=== PATIENT | male | born 1960 | race Caucasian/White ===

== ENCOUNTER → 2016-08-07 | Outpatient (CLI) | payer MEDICARE, OTHER ==
[2016-08-07 14:51] VITALS: BP 165/72; PULSE 85; RESP 16; TEMP 98.8; BMI 31.3
--- NOTE | 2016-08-07 15:58 | P.HPBAR ---
Bariatric H&P - History & Physicial H&P Date: 08/07/16 History & Physicial: Visit/CC: Sleeve follow-up Patient initial contact: Initial weight: 99.025 kg Initial weight in pounds: 218.31 Height: 5 ft 10 in Initial BMI: 31.3 Last weight: Current weight: 99.025 kg Current weight in pounds: 218.00 Current BMI: 31.3 [place] body weight (based on NIH guidelines): 75.296 kg Excess body weight loss: 0.5% The patient is a 55 year-old M who presents for Bariatric Assessment. Patient rents today for sleeve follow-up. He's had some issues with intermittent frequent bowel movements. Patient states he may have 3-6 bowel movements per day. Patient has had minimal GERD symptoms. 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 lt knee. guerda shoulders scoped. LAP-BAND. Gastric sleeve conversion. bowel adhesions removed. Bowel Adhesions removed Past Anesthesia/Blood Transfusion Reactions: No Reported Reaction Past Psychological History: Bipolar, Depression, Schizoaffective Disorder Additional Psychological History / Comment(s): antisocial disorder Smoking Status: Never smoker Past Alcohol Use History: Occasional, Rare Additional Past Alcohol Use History / Comment(s): smoked for 27 years, quit in 2001 Past Drug Use History: None Reported - Past Family History Mother Family Medical History: Cancer Additional Family Medical History / Comment(s): at age 66 from Breast Cancer Father Additional Family Medical History / Comment(s): at age 76 from emphysema Surgical - Exam Vital Signs Temp Pulse Resp BP 98.8 F 85 16 165/72 08/07/16 14:49 08/07/16 14:49 08/07/16 14:49 08/07/16 14:49 - General well developed, no distress - Eyes PERRL - ENT normal pinna - Neck no masses - Respiratory normal expansion - Cardiovascular Rhythm: regular - Abdomen Abdomen: soft, non tender Bariatric Assessment & Plan Plan: GERD. Patient's symptoms will be observed. He'll continue omeprazole.. Frequent bowel movements. Patient also start Metamucil 1 tablespoon by mouth twice a day. He'll follow-up one month recheck Bariatric Checklist Checklist: Plan: Checklist: EGD: 1. Hiatal hernia: 2. H. Pylori: HgbA1c: Vitamin D: Smoking: Never smoker Primary care physician referral: Psychiatry clearance: Cardiology clearance: Sleep study: Diet journal: VTE risk score: VTE risk level: Rehab needs at discharge:
== END | disposition home or self-care (01) ==
LOC: BARWHC3 14:12
PROVIDERS: ATTEND Surgery
DX: Z48.815 Encounter for surgical aftercare following surgery on the digestive system (principal); Z98.84 Bariatric surgery status; Z68.32 Body mass index [BMI] 32.0-32.9, adult; K21.9 Gastro-esophageal reflux disease without esophagitis; Z79.899 Other long term (current) drug therapy
CPT/HCPCS: 99201

== ENCOUNTER → 2016-08-15 | Outpatient (CLI) | payer MEDICARE, OTHER ==
--- NOTE | 2016-08-15 22:28 | MR ---
EXAMINATION TYPE: MR cervical spine wo con DATE OF EXAM: 08/15/2016 6:57 PM COMPARISON: 10/28/2009 HISTORY: Cervicalgia TECHNIQUE: Multiplanar, multisequence images of the cervical spine were acquired. C2-C3: No evidence for degenerative disc disease. No disc bulge/herniation or protrusion. No Canal stenosis. Foramina are patent bilaterally. Mild facet arthropathy. C3-C4: Bilateral uncovertebral joint hypertrophy which appears fairly stable from the previous exam i s greater on the left with moderate to severe right-sided foraminal encroachment and severe left-side d foraminal encroachment. Posterior spondylosis and minimal disc bulging results in mild indentation of the thecal sac but no canal stenosis. No spinal cord contact. C4-C5: Generative disc disease with bilateral mild uncovertebral joint protection. There is a central and left paracentral disc protrusion with effacement of thecal sac and contact upon the anterior mar gin of the spinal cord. Moderate to severe bilateral foraminal encroachment with facet arthropathy. M oderate to severe canal stenosis. C5-C6: Degenerative disc disease with posterior spondylosis and uncovertebral joint hypertrophy. Mode rate bilateral foraminal encroachment. Disc bulging capped by spur results in mild canal stenosis. C6-C7: Central focal disc bulging or small protrusion with moderate effacement of thecal sac. Bilater al mild foraminal encroachment. There is mild canal stenosis. C7-T1: No evidence for degenerative disc disease. No disc bulge/herniation or protrusion. No Canal stenosis. Foramina are patent bilaterally. Cervical segments are intact. There is normal alignment. Cervical spinal cord is of normal signal. Craniovertebral junction relationships are within normal limits. IMPRESSION: 1. There Is progression of multilevel degenerative disc disease. Disc protrusion is seen at C4-5 with mild anterior compression upon the spinal cord and significant canal stenosis and significant bilat eral foraminal encroachment. 2. Disc bulging catheter by spur with uncovertebral joint hypertrophy at C5-C6 results in mild canal stenosis and bilateral foraminal encroachment. 3. Focal central disc bulging or small protrusion with moderate effacement of thecal sac and mild guerda ateral foraminal encroachment. Mild canal stenosis. 4. Severe left and moderate to severe right foraminal encroachment C3-C4 due to posterior spondylosis and hypertrophic change of the uncovertebral joints.
== END | disposition home or self-care (01) ==
LOC: RADMRIMAIN 18:26
PROVIDERS: ATTEND Nurse Practitioner Acute Care
DX: M48.02 Spinal stenosis, cervical region (principal); M99.71 Connective tissue and disc stenosis of intervertebral foramina of cervical region; M50.221 Other cervical disc displacement at C4-C5 level; M50.30 Other cervical disc degeneration, unspecified cervical region; M47.812 Spondylosis without myelopathy or radiculopathy, cervical region
CPT/HCPCS: 72141

== ENCOUNTER 2016-08-22 09:07 | Emergency (ER) | payer MEDICARE, OTHER ==
[2016-08-22 09:17] VITALS: RESP 18
--- NOTE | 2016-08-22 10:27 | ED ---
General Adult HPI - General Chief complaint: Neck Pain/Injury Stated complaint: Numbness neck /arm Time Seen by Provider: 08/22/16 10:00 Source: patient, RN notes reviewed Mode of arrival: ambulatory Limitations: no limitations - History of Present Illness Initial comments: His is a 55-year-old male who presents to the emergency department complaining of tingling in his left arm down to his fingers. Patient states he has had this for many months. Patient went to see his neurologist his urologist an MRI now the symptoms seem to be more constant as opposed to intermittent so he went to the neurologist's office in the office staff told to come the emergency department. Patient has no deficit of strength patient has no deficit of sensation. Patient states he's had this for many months but normally it's intermittent and now it lasted a lot longer than normal. Patient states movement of the neck does not seem to make it worse. Patient states she's had a recent injury or trauma. Patient denies any fever. Patient denies any other symptoms such as lightheadedness dizziness or near syncopal episode. Patient denies any headache. Patient denies any problems breathing or chest pain or abdominal pain. - Related Data Home Medications Medication Instructions Recorded Confirmed Atorvastatin [Lipitor] 40 mg PO HS 08/07/16 08/22/16 Gabapentin [Neurontin] 600 mg PO TID 08/07/16 08/22/16 HYDROcodone/APAP 7.5-325MG [[place] 1 tab PO TID PRN 08/07/16 08/22/16 7.5-325] Lisinopril [Zestril] 5 mg PO DAILY 08/07/16 08/22/16 Zolpidem [Ambien] 10 mg PO HS PRN 08/07/16 08/22/16 metFORMIN HCL [Glucophage Xr] 500 mg PO DAILY 08/07/16 08/22/16 Aspirin EC [Ecotrin Low Dose] 81 mg PO DAILY 08/22/16 08/22/16 Butalb/APAP/Caff 50-325-40Mg 1 tab PO Q4H PRN 08/22/16 08/22/16 [Fioricet 50-325-40] Calcium Polycarbophil [Fibercon] 625 mg PO DAILY 08/22/16 08/22/16 Meloxicam 15 mg PO DAILY 08/22/16 08/22/16 Previous Rx's Medication Instructions Recorded predniSONE 40 mg PO DAILY #8 tab 08/22/16 Allergies Allergy/AdvReac Type Severity Reaction Status Date / Time No Known Allergies Allergy Verified 08/22/16 09:42 Review of Systems ROS Statement: Those systems with pertinent positive or pertinent negative responses have been documented in the HPI. ROS Other: All systems not noted in ROS Statement are negative. 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 lt knee. guerda shoulders scoped. LAP-BAND. Gastric sleeve conversion. bowel adhesions removed. Bowel Adhesions removed Past Anesthesia/Blood Transfusion Reactions: No Reported Reaction Past Psychological History: Bipolar, Depression, Schizoaffective Disorder Additional Psychological History / Comment(s): antisocial disorder Smoking Status: Never smoker Past Alcohol Use History: Occasional, Rare Additional Past Alcohol Use History / Comment(s): smoked for 27 years, quit in 2001 Past Drug Use History: None Reported - Past Family History Mother Family Medical History: Cancer Additional Family Medical History / Comment(s): at age 66 from Breast Cancer Father Additional Family Medical History / Comment(s): at age 76 from emphysema General Exam - General Exam Comments Initial Comments: GENERAL: Patient is well-developed and well-nourished. Patient is nontoxic and well- hydrated and is in mild distress. ENT: Neck is soft and supple. No significant lymphadenopathy is noted. Oropharynx is clear. Moist mucous membranes. Neck has full range of motion without eliciting any pain. There is no radiculopathy noted with range of motion of the neck EYES: The sclera were anicteric and conjunctiva were pink and moist. Extraocular movements were intact and pupils were equal round and reactive to light. Eyelids were unremarkable. PULMONARY: Unlabored respirations. Good breath sounds bilaterally. No audible rales rhonchi or wheezing was noted. CARDIOVASCULAR: There is a regular rate and rhythm without any murmurs gallops or rubs. ABDOMEN: Soft and nontender with normal bowel sounds. SKIN: Skin is clear with no lesions or rashes and otherwise unremarkable. NEUROLOGIC: Patient is alert and oriented x3. Cranial nerves II through XII are grossly intact. Motor and sensory are also intact. Normal speech, volume and content. Symmetrical smile. There is no appreciable deficit in any area. MUSCULOSKELETAL: Normal extremities with adequate strength and full range of motion. LYMPHATICS: No significant lymphadenopathy is noted PSYCHIATRIC: Normal psychiatric evaluation. Limitations: no limitations Course Vital Signs 08/22/16 09:12 Temperature 97.4 F L Pulse Rate 69 Respiratory 18 Rate Blood Pressure 181/82 O2 Sat by Pulse 99 Oximetry Medical Decision Making - Medical Decision Making I reviewed the MRI. Disposition Clinical Impression: Cervical radiculopathy Disposition: HOME SELF-CARE Condition: Good Prescriptions: predniSONE 40 mg PO DAILY #8 tab Referrals: Luciano Shukla MD [Primary Care Provider] - 1-2 days Time of Disposition: 10:27
[2016-08-22 10:48] VITALS: BP 131/80; PULSE 63; TEMP 97.3
== END 2016-08-22 10:48 | disposition home or self-care (01) ==
LOC: EC 09:07
DX: M54.12 Radiculopathy, cervical region (principal); E11.9 Type 2 diabetes mellitus without complications; E78.5 Hyperlipidemia, unspecified; I25.10 Atherosclerotic heart disease of native coronary artery without angina pectoris; I10 Essential (primary) hypertension; Z98.84 Bariatric surgery status; Z79.899 Other long term (current) drug therapy; Z79.82 Long term (current) use of aspirin; Z90.5 Acquired absence of kidney; Z87.891 Personal history of nicotine dependence; Z79.84 Long term (current) use of oral hypoglycemic drugs; Z95.1 Presence of aortocoronary bypass graft
CPT/HCPCS: 99283

== ENCOUNTER → 2016-10-30 | Outpatient (CLI) | payer MEDICARE, OTHER ==
[2016-10-30 14:03] VITALS: BP 150/80; PULSE 56; RESP 14; TEMP 98; BMI 31.9
--- NOTE | 2016-10-30 15:54 | P.HPBAR ---
Bariatric H&P - History & Physicial H&P Date: 10/30/16 History & Physicial: Visit/CC: sleeve f/u Patient initial contact: Initial weight: 99.025 kg Initial weight in pounds: 218.31 Height: 5 ft 10 in Initial BMI: 31.3 Last weight: Current weight: 100.924 kg Current weight in pounds: 222.50 Current BMI: 31.9 [place] body weight (based on NIH guidelines): 75.296 kg Excess body weight loss: The patient is a 55 year-old M who presents for Bariatric Assessment. The patient has safer sleeve gastrectomy follow-up. He states his arthritis is improved. He underwent recent right knee joint replacement. He's had no GERD and dysphagia. 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 lt knee. guerda shoulders scoped. LAP-BAND. Gastric sleeve conversion. bowel adhesions removed. Bowel Adhesions removed Past Anesthesia/Blood Transfusion Reactions: No Reported Reaction Past Psychological History: Bipolar, Depression, Schizoaffective Disorder Additional Psychological History / Comment(s): antisocial disorder Smoking Status: Never smoker Past Alcohol Use History: Occasional, Rare Additional Past Alcohol Use History / Comment(s): smoked for 27 years, quit in 2001 Past Drug Use History: None Reported - Past Family History Mother Family Medical History: Cancer Additional Family Medical History / Comment(s): at age 66 from Breast Cancer Father Additional Family Medical History / Comment(s): at age 76 from emphysema Surgical - Exam Vital Signs Temp Pulse Resp BP 98 F 56 L 14 150/80 10/30/16 13:56 10/30/16 13:56 10/30/16 13:56 10/30/16 13:56 - General well developed, no distress - Eyes PERRL - ENT normal pinna - Neck no masses - Abdomen Abdomen: soft, non tender Bariatric Assessment & Plan Plan: Status post sleeve yesterday. Patient is doing quite well his weight loss. His weight is remain stable. His arthritis is improving. He'll follow-up in 2 months. Bariatric Checklist Checklist: Plan: Checklist: EGD: 1. Hiatal hernia: 2. H. Pylori: HgbA1c: Vitamin D: Smoking: Never smoker Primary care physician referral: Dr. Shukla Psychiatry clearance: Cardiology clearance: Sleep study: Diet journal: VTE risk score: VTE risk level: Rehab needs at discharge:
== END | disposition home or self-care (01) ==
LOC: BARWHC3 13:19
PROVIDERS: ATTEND Surgery
DX: Z48.815 Encounter for surgical aftercare following surgery on the digestive system (principal); M19.90 Unspecified osteoarthritis, unspecified site; Z98.84 Bariatric surgery status; Z68.31 Body mass index [BMI] 31.0-31.9, adult
CPT/HCPCS: 99211

== ENCOUNTER → 2017-01-01 | Outpatient (CLI) | payer MEDICARE, OTHER ==
[2017-01-01 13:14] VITALS: BP 140/72; PULSE 85; RESP 16; TEMP 97.9; BMI 30.4
--- NOTE | 2017-01-01 13:37 | P.HPBAR ---
Bariatric H&P - History & Physicial H&P Date: 01/01/17 History & Physicial: Visit/CC: Sleeve FU Patient initial contact: Initial weight: 99.025 kg Initial weight in pounds: 218.31 Height: 5 ft 10 in Initial BMI: 31.3 Last weight: Current weight: 96.417 kg Current weight in pounds: 212.00 Current BMI: 30.4 [place] body weight (based on NIH guidelines): 75.296 kg Excess body weight loss: 12.0% The patient is a 56 year-old M who presents for Bariatric Assessment. The patient presents today for sleeve gastrectomy fall. He is less pressure 10 pounds over the last 2 months. He states he did have some issues with dehydration. He is not sure what caused dehydration he denied any nausea or vomiting. He currently has no issues with dehydration. He's had some mild GERD. 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 lt knee. guerda shoulders scoped. LAP-BAND. Gastric sleeve conversion. bowel adhesions removed. Bowel Adhesions removed Past Anesthesia/Blood Transfusion Reactions: No Reported Reaction Past Psychological History: Bipolar, Depression, Schizoaffective Disorder Additional Psychological History / Comment(s): antisocial disorder Smoking Status: Never smoker Past Alcohol Use History: Occasional, Rare Additional Past Alcohol Use History / Comment(s): smoked for 27 years, quit in 2001 Past Drug Use History: None Reported - Past Family History Mother Family Medical History: Cancer Additional Family Medical History / Comment(s): at age 66 from Breast Cancer Father Additional Family Medical History / Comment(s): at age 76 from emphysema Surgical - Exam Vital Signs Temp Pulse Resp BP 97.9 F 85 16 140/72 01/01/17 13:12 01/01/17 13:12 01/01/17 13:12 01/01/17 13:12 - General well developed, no distress - Eyes PERRL - ENT normal pinna - Neck no masses - Respiratory normal expansion - Cardiovascular Rhythm: regular - Abdomen Abdomen: soft, non tender Bariatric Assessment & Plan Plan: Status post sleeve gastrectomy. Patient doing well. His GERD symptoms are minimal be observed. He'll follow-up in one month. Bariatric Checklist Checklist: Plan: Checklist: EGD: 1. Hiatal hernia: 2. H. Pylori: HgbA1c: Vitamin D: Smoking: Never smoker Primary care physician referral: Dr. Shukla Psychiatry clearance: Cardiology clearance: Sleep study: Diet journal: VTE risk score: VTE risk level: Rehab needs at discharge:
== END | disposition home or self-care (01) ==
LOC: BARWHC3 12:08
PROVIDERS: ATTEND Surgery
DX: Z48.815 Encounter for surgical aftercare following surgery on the digestive system (principal); K21.9 Gastro-esophageal reflux disease without esophagitis; Z98.84 Bariatric surgery status
CPT/HCPCS: 99211

== ENCOUNTER → 2017-01-23 | Outpatient (CLI) | payer MEDICARE, OTHER ==
--- NOTE | 2017-01-23 17:26 | MR ---
EXAMINATION TYPE: MR lumbar spine wo con DATE OF EXAM: 01/23/2017 4:07 PM COMPARISON: 06/19/2013 HISTORY: Chronic Back pain for many years Multiplanar, MultiSpin echo imaging of the lumbar spine was performed. L1-L2: Normal disc appearance without desiccation. No herniation, protrusion or disc bulging. No ca nal stenosis is present. Foramina are patent bilaterally. L2-L3: Normal disc appearance without desiccation. No herniation, protrusion or disc bulging. No ca nal stenosis is present. Foramina are patent bilaterally. L3-L4: Mild disc desiccation. Broad-based disc bulge mildly effaces the ventral thecal sac. No eviden ce for central stenosis or lateral recess stenosis. Foramina are patent. Facet joint arthropathy note d. L3 hemangioma. L4-L5: Moderate disc desiccation. Posterocentral disc bulge and annular tear. Mild effacement ventral thecal sac. No evidence for central stenosis or lateral recess stenosis. Facet joint arthropathy wit hout foraminal encroachment. L5-S1: Moderate to severe disc desiccation again seen. Posterocentral and towards the right disc tian iation at L5-S1 persist with resultant right lateral recess stenosis and right foraminal encroachment . Hemangioma L5 vertebral segment. Lumbar segments are intact. No paraspinal masses are identified. Conus medullaris has a normal appe arance. IMPRESSION: 1. Stable disc herniation at L5-S1 with right lateral recess stenosis and right foraminal encroachmen t. 2. Degenerative disc disease. 3. Disc bulging at L3-4 and L4-5.
== END | disposition home or self-care (01) ==
LOC: RADMRIMAIN 15:02
PROVIDERS: ATTEND Psychiatry & Neurology Pain Medicine
DX: M51.27 Other intervertebral disc displacement, lumbosacral region (principal); M51.36 Other intervertebral disc degeneration, lumbar region
CPT/HCPCS: 72148

== ENCOUNTER → 2017-06-25 | Outpatient (CLI) | payer MEDICARE, OTHER ==
[2017-06-25 14:30] VITALS: BP 148/73; PULSE 74; TEMP 97.7; BMI 30.4
--- NOTE | 2017-06-25 15:54 | P.HPBAR ---
Bariatric H&P - History & Physicial H&P Date: 06/25/17 History & Physicial: Visit/CC: sleeve follow up Patient initial contact: Initial weight: 99.025 kg Initial weight in pounds: 218.31 Height: 5 ft 10 in Initial BMI: 31.3 Last weight: 212 Current weight: 96.343 kg Current weight in pounds: 212.40 Current BMI: 30.4 [place] body weight (based on NIH guidelines): 75.296 kg Excess body weight loss: 11.3% The patient is a 56 year-old M who presents for Bariatric Assessment. Patient has some complaints of GERD. He is requesting a prescription of omeprazole. 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 lt knee. guerda shoulders scoped. LAP-BAND. Gastric sleeve conversion. bowel adhesions removed. Bowel Adhesions removed Past Anesthesia/Blood Transfusion Reactions: No Reported Reaction Past Psychological History: Bipolar, Depression, Schizoaffective Disorder Additional Psychological History / Comment(s): antisocial disorder Smoking Status: Never smoker Past Alcohol Use History: Occasional, Rare Additional Past Alcohol Use History / Comment(s): smoked for 27 years, quit in 2001 Past Drug Use History: None Reported - Past Family History Mother Family Medical History: Cancer Additional Family Medical History / Comment(s): at age 66 from Breast Cancer Father Additional Family Medical History / Comment(s): at age 76 from emphysema Surgical - Exam Vital Signs Temp Pulse BP 97.7 F 74 148/73 06/25/17 14:27 06/25/17 14:27 06/25/17 14:27 - General well developed, no distress - Eyes PERRL - ENT normal pinna - Neck no masses - Abdomen Abdomen: soft, non tender Bariatric Assessment & Plan Plan: GERD. Patient was placed on omeprazole 40 mg by mouth daily. She'll follow-up in 2 weeks. Bariatric Checklist Checklist: Plan: Checklist: EGD: 1. Hiatal hernia: 2. H. Pylori: HgbA1c: Vitamin D: Smoking: Never smoker Primary care physician referral: Dr. Shukla Psychiatry clearance: Cardiology clearance: Sleep study: Diet journal: VTE risk score: VTE risk level: Rehab needs at discharge:
== END | disposition home or self-care (01) ==
LOC: BARWHC3 13:34
PROVIDERS: ATTEND Surgery
DX: Z48.815 Encounter for surgical aftercare following surgery on the digestive system (principal); K21.9 Gastro-esophageal reflux disease without esophagitis; Z79.899 Other long term (current) drug therapy; Z98.84 Bariatric surgery status
CPT/HCPCS: 99211

== ENCOUNTER → 2017-06-26 | Outpatient (CLI) | payer MEDICARE, OTHER ==
--- NOTE | 2017-06-26 11:23 | CT ---
EXAMINATION TYPE: CT abdomen pelvis wo con DATE OF EXAM: 06/26/2017 COMPARISON: 12/20/2013 HISTORY: 56-year-old male Abdominal pain, flank pain, and single kidney CT DLP: 692.2 mGycm. Automated exposure control for dose reduction was used. TECHNIQUE: Contiguous axial scanning of the abdomen and pelvis without IV contrast. Coronal and sagit prem reconstructions performed. FINDINGS: Heart is normal size without pericardial effusion. Median sternotomy wires are present with post-CABG changes. Band of atelectasis at the peripheral left base. No pleural effusion. Postsurgical changes of sleeve gastrectomy. Noncontrast appearance of the liver, gallbladder, adrenal glands, spleen, and pancreas show no gross anomaly. Small diverticulum off the second portion of the duodenum projecting to the pancreatic head region. Right kidney shows 3 nonobstructive calculi measuring from 2 to 3 mm. While there is no significant h ydronephrosis, findings are equivocal for a 3 mm calculus along the distal right ureter versus phlebo lith that is new from 12/20/2013. Atretic left kidney unchanged with either calcifications or surgical material. No dilated small bowel, free fluid, or free air. Scattered nonenlarged mesenteric lymph nodes are present. Mild to moderate stool burden. No pericolonic inflammatory change. Mild circumference of bladder wall thickening. Prostate gland probably prominent at 4.0 cm wide. Some central prostatic calcification is present. Patulous right inguinal canal. No abnormal fluid collection in the pelvis or pelvic lymphadenopathy s een. Bones: Degenerative changes at the right greater than left hip. Bridging endplate spondylosis lower t horacic spine compatible with dish. Disc osteophyte complex at L5-S1. No osseous destructive process. IMPRESSION: 1. A 3 mm calcification along the course of the distal right ureter. This is equivocal for a distal ureteral calculus versus pelvic phlebolith given that there is no significant hydronephrosis. Correla te clinically. The calcification is new from 2013. 2. There are 3 additional nonobstructing 3 mm right renal calculi. 3. Stable atretic left kidney with associated calcifications or surgical material. 4. Mild circumferential bladder wall thickening could represent chronic bladder wall hypertrophy or cystitis.
== END | disposition home or self-care (01) ==
LOC: RADCTMAIN 07:47
PROVIDERS: ATTEND Internal Medicine
DX: N28.89 Other specified disorders of kidney and ureter (principal); N20.0 Calculus of kidney; N32.89 Other specified disorders of bladder; Z88.1 Allergy status to other antibiotic agents; Z88.5 Allergy status to narcotic agent; Z88.8 Allergy status to other drugs, medicaments and biological substances
CPT/HCPCS: 74176

== ENCOUNTER → 2017-09-24 | Outpatient (CLI) | payer MEDICARE, OTHER ==
[2017-09-24 15:02] VITALS: BP 144/68; PULSE 83; RESP 16; TEMP 97.7; BMI 33.0
--- NOTE | 2017-09-25 11:26 | P.HPBAR ---
Bariatric H&P - History & Physicial H&P Date: 09/24/17 History & Physicial: Visit/CC: SLEEVE FOLLOW-UP Patient initial contact: Initial weight: 99.025 kg Initial weight in pounds: 218.31 Height: 5 ft 10 in Initial BMI: 31.3 Last weight: Current weight: 104.326 kg Current weight in pounds: 230.00 Current BMI: 33.0 [place] body weight (based on NIH guidelines): 75.296 kg Excess body weight loss: The patient is a 56 year-old M who presents for Bariatric Assessment. Patient presents today for sleeve gastrectomy follow-up. He is actually gaining 18 pounds since his last visit. He has complaints of knee arthritis. The patient is very upset that he was seen in the emergency room and his knee was not drained by a emergency physician.. Explained to him that this is usually done by orthopedics. He has complaints of some GERD and arthritis. 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 lt knee. guerda shoulders scoped. LAP-BAND. Gastric sleeve conversion. bowel adhesions removed. Bowel Adhesions removed Past Anesthesia/Blood Transfusion Reactions: No Reported Reaction Past Psychological History: Bipolar, Depression, Schizoaffective Disorder Additional Psychological History / Comment(s): antisocial disorder Smoking Status: Never smoker Past Alcohol Use History: Occasional, Rare Additional Past Alcohol Use History / Comment(s): smoked for 27 years, quit in 2001 Past Drug Use History: None Reported - Past Family History Mother Family Medical History: Cancer Additional Family Medical History / Comment(s): at age 66 from Breast Cancer Father Additional Family Medical History / Comment(s): at age 76 from emphysema Surgical - Exam Vital Signs Temp Pulse Resp BP 97.7 F 83 16 144/68 09/24/17 14:59 09/24/17 14:59 09/24/17 14:59 09/24/17 14:59 - General well developed, no distress - Eyes PERRL - ENT normal pinna - Neck no masses - Respiratory normal expansion - Cardiovascular Rhythm: regular - Abdomen Abdomen: soft, non tender Bariatric Assessment & Plan Plan: The patient will follow-up in 2 months. His GERD is minimal will be observed. I recommended he follow up with orthopedics regarding his knee effusion. Bariatric Checklist Checklist: Plan: Checklist: EGD: 1. Hiatal hernia: 2. H. Pylori: HgbA1c: Vitamin D: Smoking: Never smoker Primary care physician referral: Dr. Shukla Psychiatry clearance: Cardiology clearance: Sleep study: Diet journal: VTE risk score: VTE risk level: Rehab needs at discharge:
== END | disposition home or self-care (01) ==
LOC: BARWHC3 14:20
PROVIDERS: ATTEND Surgery
DX: Z09 Encounter for follow-up examination after completed treatment for conditions other than malignant neoplasm (principal); M17.9 Osteoarthritis of knee, unspecified; K52.89 Other specified noninfective gastroenteritis and colitis; K21.9 Gastro-esophageal reflux disease without esophagitis; I25.10 Atherosclerotic heart disease of native coronary artery without angina pectoris; E11.9 Type 2 diabetes mellitus without complications; E78.5 Hyperlipidemia, unspecified; I10 Essential (primary) hypertension; F25.1 Schizoaffective disorder, depressive type; F10.20 Alcohol dependence, uncomplicated; K95.89 Other complications of other bariatric procedure; Z95.1 Presence of aortocoronary bypass graft; Z90.89 Acquired absence of other organs; Z98.890 Other specified postprocedural states; Z90.5 Acquired absence of kidney; Z98.84 Bariatric surgery status
CPT/HCPCS: 99211

== ENCOUNTER → 2018-02-04 | Outpatient (CLI) | payer MEDICARE, OTHER ==
[2018-02-04 13:50] VITALS: BP 135/82; PULSE 79; RESP 16; TEMP 98.7; BMI 34.7
--- NOTE | 2018-02-04 15:43 | P.HPBAR ---
Bariatric H&P - History & Physicial H&P Date: 02/04/18 History & Physicial: Visit/CC: sleeve follow-up Patient initial contact: Initial weight: 99.025 kg Initial weight in pounds: 218.31 Height: 5 ft 10 in Initial BMI: 31.3 Last weight: Current weight: 109.996 kg Current weight in pounds: 242.50 Current BMI: 34.7 [place] body weight (based on NIH guidelines): 75.296 kg Excess body weight loss: The patient is a 57 year-old M who presents for Bariatric Assessment. Patient presents today for sleeve gastrectomy follow-up. The patient's had some mild with GERD. He has complaints of weight gain. He states his gait approximately 30 pounds last 3 months. He claims he hasn't a large amount of emotional stress. 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 lt knee. guerda shoulders scoped. LAP-BAND. Gastric sleeve conversion. bowel adhesions removed. Bowel Adhesions removed Past Anesthesia/Blood Transfusion Reactions: No Reported Reaction Smoking Status: Never smoker - Past Family History Mother Family Medical History: Cancer Additional Family Medical History / Comment(s): at age 66 from Breast Cancer Father Additional Family Medical History / Comment(s): at age 76 from emphysema Surgical - Exam Vital Signs Temp Pulse Resp BP 98.7 F 79 16 135/82 02/04/18 13:48 02/04/18 13:48 02/04/18 13:48 02/04/18 13:48 - General well developed, no distress - Eyes PERRL - ENT normal pinna, normal nares - Abdomen Abdomen: soft, non tender Bariatric Assessment & Plan Plan: Status post sleeve yesterday. Patient's BMI is Back to 35. The patient will see his family doctor for referral to a psychiatrist for his depression. He'll follow-up in 8 weeks. Bariatric Checklist Checklist: Plan: Checklist: EGD: 1. Hiatal hernia: 2. H. Pylori: HgbA1c: Vitamin D: Smoking: Never smoker Primary care physician referral: Dr. Shukla Psychiatry clearance: Cardiology clearance: Sleep study: Diet journal: VTE risk score: VTE risk level: Rehab needs at discharge:
== END | disposition home or self-care (01) ==
LOC: BARWHC3 13:08
PROVIDERS: ATTEND Surgery
DX: Z48.815 Encounter for surgical aftercare following surgery on the digestive system (principal); Z98.84 Bariatric surgery status
CPT/HCPCS: 99211

== ENCOUNTER 2018-03-25 09:35 | Emergency (ER) | payer MEDICARE, OTHER ==
[2018-03-25 09:40] VITALS: TEMP 97.8
--- NOTE | 2018-03-25 10:09 | ED ---
Back Pain HPI - General Chief Complaint: Back Pain/Injury Stated Complaint: back pain Time Seen by Provider: 03/25/18 09:44 Source: patient, RN notes reviewed Mode of arrival: ambulatory Limitations: no limitations - History of Present Illness Initial Comments: 57-year-old male presents emergency Department chief complaint of back pain. He 's been having worsening symptoms last 2-3 weeks. Patient states he has pain that radiates into his right thigh region, right scrotal region. He denies any associated paresthesias. He denies any dysuria, hematuria, bowel bladder incontinence or retention. He does have a known herniated disc at L5-S1. He states he has received injections in the past and does see Dr. Marroquin chronic pain management. Patient states that he was seen at [facility] and was given Toradol with no relief of symptoms. Patient denies any abdominal pain including nausea, vomiting, diarrhea constipation. He has no discoloration or swelling of his lower extremities. He does admit that he has chronic right knee issues after knee surgery by Dr. Zuniga. - Related Data Home Medications Medication Instructions Recorded Confirmed Atorvastatin [Lipitor] 40 mg PO HS 08/07/16 03/25/18 Aspirin EC [Ecotrin Low Dose] 81 mg PO DAILY 08/22/16 03/25/18 Ferrous Sulfate [Feosol] 325 mg PO DAILY 10/30/16 03/25/18 HYDROcodone/APAP 10-325MG [[place] 1 tab PO TID PRN 03/25/18 03/25/18 10-325] QUEtiapine [SEROquel] 400 mg PO HS 03/25/18 03/25/18 metFORMIN HCL [Glucophage] 500 mg PO BID 03/25/18 03/25/18 Previous Rx's Medication Instructions Recorded predniSONE 50 mg PO DAILY #5 tab 03/25/18 Allergies Allergy/AdvReac Type Severity Reaction Status Date / Time No Known Allergies Allergy Verified 03/25/18 10:37 Review of Systems ROS Statement: Those systems with pertinent positive or pertinent negative responses have been documented in the HPI. ROS Other: All systems not noted in ROS Statement are negative. 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 lt knee. guerda shoulders scoped. LAP-BAND. Gastric sleeve conversion. bowel adhesions removed. Bowel Adhesions removed Past Anesthesia/Blood Transfusion Reactions: No Reported Reaction Past Psychological History: Bipolar, Depression, Schizoaffective Disorder Smoking Status: Never smoker Past Alcohol Use History: Occasional, Rare Past Drug Use History: None Reported - Past Family History Mother Family Medical History: Cancer Additional Family Medical History / Comment(s): at age 66 from Breast Cancer Father Additional Family Medical History / Comment(s): at age 76 from emphysema General Exam Limitations: no limitations General appearance: alert, in no apparent distress Head exam: Present: atraumatic, normocephalic, normal inspection Neck exam: Present: normal inspection, full ROM. Absent: tenderness, meningismus, lymphadenopathy Respiratory exam: Present: normal lung sounds bilaterally. Absent: respiratory distress, wheezes, rales, rhonchi, stridor Cardiovascular Exam: Present: regular rate, normal rhythm, normal heart sounds. Absent: systolic murmur, diastolic murmur, rubs, gallop, clicks GI/Abdominal exam: Present: soft, normal bowel sounds. Absent: distended, tenderness, guarding, rebound, rigid Extremities exam: Present: normal inspection, full ROM, normal capillary refill , other (Lower extremity strength equal bilaterally 5/5 neurovascular intact). Absent: tenderness, pedal edema, joint swelling, calf tenderness Back exam: Present: full ROM (Mild discomfort), tenderness (Mild right lumbar region), paraspinal tenderness, other (Pain with right straight leg raise). Absent: vertebral tenderness Neurological exam: Present: reflexes normal. Absent: motor sensory deficit Skin exam: Present: warm, dry, intact, normal color. Absent: rash Course Vital Signs 03/25/18 09:38 Temperature 97.8 F Pulse Rate 84 Respiratory 20 Rate Blood Pressure 143/83 O2 Sat by Pulse 99 Oximetry Medical Decision Making - Medical Decision Making 57-year-old male presents emergency department for progressive low back pain. Patient had CT which shows large osteophyte impinging S1 nerve root. Patient does not have any red flag symptoms. He will follow-up with Dr. Jenkins he'll be tried on a course of steroids to see if there is any improvement and follow-up with his pain management. 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 Prescriptions: predniSONE 50 mg PO DAILY #5 tab Is patient prescribed a controlled substance at d/c from ED?: No Referrals: Luciano Shukla MD [Primary Care Provider] - 1-2 days Jose A Patel DO [Doctor of Osteopathic Medicine] - 1-2 days Time of Disposition: 11:10
--- NOTE | 2018-03-25 10:39 | CT ---
EXAMINATION TYPE: CT lumbar spine wo con DATE OF EXAM: 03/25/2018 COMPARISON: CT abdomen pelvis 06/26/2017 HISTORY: 57-year-old male Back pain TECHNIQUE: Contiguous axial scanning of the lumbar spine without IV contrast. Coronal and sagittal re constructions performed. CT DLP: 986 mGycm Automated exposure control for dose reduction was used. FINDINGS: Stable atretic left kidney with associated calcifications or surgical material just adjacent. Vertebral body heights are preserved and alignment is maintained. Scattered mild degenerative disc disease characterized by bulging disks throughout. There is moderate degenerative disc disease had L5-S1 with a large central and right paracentral disc osteophyte complex. This impresses on the ventral thecal sac mildly narrowing the spinal canal. It a lso appears to impinge the traversing right S1 nerve root and abuts the traversing left S1 nerve root . [id number] bilateral neuroforaminal stenosis at this level. There is a component of congenital spinal canal narrowing with AP canal dimension of 1.2 cm. No high-grade canal compromise identified. Minimal to mild narrowing of the L2-L4 and L4-L5 inferior neural foramen. No acute fracture of the lumbar spine. Scattered facet arthropathy mid to lower lumbar spine. IMPRESSION: 1. LARGE CENTRAL AND RIGHT PARACENTRAL DISC OSTEOPHYTE COMPLEX AT L5-S1 IMPINGES THE TRAVERSING RIGHT S1 NERVE ROOT AND ABUTS THE TRAVERSING LEFT S1 NERVE ROOT. CORRELATE FOR ANY RADICULAR SYMPTOMS. 2. MILD SPINAL CANAL STENOSIS HERE AT L5-S1 WITH MILD TO MODERATE BILATERAL NEUROFORAMINAL STENOSIS.
[2018-03-25] MEDS ORDERED: HYDROcodone/APAP 10-325MG 1 EACH TAB PO ONE (11:09)
[2018-03-25 11:19] VITALS: BP 124/63; PULSE 68; RESP 18
== END 2018-03-25 11:22 | disposition home or self-care (01) ==
LOC: EC 09:35
DX: M51.16 Intervertebral disc disorders with radiculopathy, lumbar region (principal); M25.78 Osteophyte, vertebrae; M79.651 Pain in right thigh; N50.82 Scrotal pain; F25.9 Schizoaffective disorder, unspecified; F31.9 Bipolar disorder, unspecified; E11.59 Type 2 diabetes mellitus with other circulatory complications; I25.10 Atherosclerotic heart disease of native coronary artery without angina pectoris; I10 Essential (primary) hypertension; E78.5 Hyperlipidemia, unspecified; Z79.84 Long term (current) use of oral hypoglycemic drugs; Z79.82 Long term (current) use of aspirin; Z79.899 Other long term (current) drug therapy; Z98.61 Coronary angioplasty status
CPT/HCPCS: 72131; 99283

== ENCOUNTER 2018-06-26 05:26 | Emergency (ER) | payer MEDICARE, OTHER ==
[2018-06-26 05:41] VITALS: RESP 18
[2018-06-26] MEDS ORDERED: HYDROmorphone 1 MG/ML 1 ML SYRINGE IM STA (06:02)
[2018-06-26] MEDS ORDERED: ORPHENADRINE 30 MG/ML 2 ML VIAL IM STA (06:02)
[2018-06-26] MEDS ORDERED: LIDOCAINE 5% PATCH TOPICAL STA (06:02)
--- NOTE | 2018-06-26 06:03 | ED ---
Back Pain HPI - General Chief Complaint: Back Pain/Injury Stated Complaint: Back Pain Time Seen by Provider: 06/26/18 05:43 Source: patient - History of Present Illness Initial Comments: Khang is a 57-year-old gentleman a history of chronic low back pain who presents the emergency department today for evaluation of exacerbation of his back pain. Patient reports that he has a known L5-S1 disc herniation with the plan for surgical intervention on July 17. Patient reports he follows with a pain management doctor, he is on Slayden for his chronic back pain. Patient states that over the past few days he has had worsening back pain in his right paraspinal region radiating down his right leg. Patient has a history of sciatica with symptoms that his right leg that usually R a tightness that radiates from his buttocks to his knee. Patient states over the past day he feels like the pain radiates all the way to his toes. Patient reports he took an extra Slayden this morning with no improvement in his pain. Patient denies any recent injuries, motor vehicle accidents, slips or falls. He denies any heavy lifting or activity which could've exacerbated his chronic low back pain. Patient denies any weakness in the lower extremities, any bowel or bladder incontinence or retention, any numbness or tingling in the extremities. Patient is not an IV drug user, he's had no fevers or chills. He has been able to ambulate without difficulty. Patient reports that at baseline his pain as an 8 out of 10 despite following his pain management regimen. He reports over the past 2 days his pain is been a 20 out of 10. - Related Data Home Medications Medication Instructions Recorded Confirmed Atorvastatin [Lipitor] 40 mg PO DAILY 08/07/16 06/26/18 Aspirin EC [Ecotrin Low Dose] 81 mg PO DAILY 08/22/16 06/26/18 QUEtiapine [SEROquel] 400 mg PO HS 03/25/18 06/26/18 metFORMIN HCL [Glucophage] 500 mg PO BID 03/25/18 06/26/18 Allergies Allergy/AdvReac Type Severity Reaction Status Date / Time No Known Allergies Allergy Verified 06/26/18 07:35 Review of Systems ROS Statement: Those systems with pertinent positive or pertinent negative responses have been documented in the HPI. ROS Other: All systems not noted in ROS Statement are negative. 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, chronic diarrhea since sleeve surgery in 2012, History of Any Multi-Drug Resistant Organisms: None Reported Past Surgical History: Appendectomy, Coronary Bypass/CABG, Joint Replacement, Orthopedic Surgery Additional Past Surgical History / Comment(s): lt kidney removed, lt knee,guerda shoulders scoped,LAP-BAND,Gastric sleeve conversion,bowel adhesions removed Past Anesthesia/Blood Transfusion Reactions: No Reported Reaction Past Psychological History: Bipolar, Depression, Schizoaffective Disorder Smoking Status: Never smoker Past Alcohol Use History: Occasional, Rare Past Drug Use History: None Reported - Past Family History Mother Family Medical History: Cancer Additional Family Medical History / Comment(s): at age 66 from Breast Cancer Father Additional Family Medical History / Comment(s): at age 76 from emphysema General Exam - General Exam Comments Initial Comments: Physical Exam GENERAL: Patient is well-developed and well-nourished. Patient is nontoxic and well- hydrated and is in no distress. HENT: Normocephalic, Atraumatic. EYES: PERRL, EOMI PULMONARY: Unlabored respirations. No audible rales rhonchi or wheezing was noted. CARDIOVASCULAR: There is a regular rate and rhythm without any murmurs gallops or rubs. ABDOMEN: Soft and nontender with normal bowel sounds. SKIN: Skin is clear with no lesions or rashes and otherwise unremarkable. : Deferred NEUROLOGIC: Patient is alert and oriented x3. Moving all extremities spontaneously Normal Achilles tendon reflexes bilaterally Decreased patellar reflexes bilaterally consistent with patient's history of bilateral knee replacements Normal sensation of the bilateral lower extremities Normal strength of the bilateral lower extremities Negative straight leg raise MUSCULOSKELETAL: Normal extremities with adequate strength and full range of motion. No lower extremity swelling or edema. No calf tenderness. PSYCHIATRIC: Normal psychiatric evaluation. Limitations: no limitations Course Vital Signs 06/26/18 06/26/18 05:37 07:34 Temperature 97.6 F 97.8 F Pulse Rate 62 58 L Respiratory 18 18 Rate Blood Pressure 122/78 120/90 O2 Sat by Pulse 98 98 Oximetry Medical Decision Making - Medical Decision Making The patient was seen and evaluated Patient with chronic back pain which is exacerbated today History and physical exam Physical exam reveals no red flag symptoms Physical exam is consistent with paraspinal hypertonicity of the right paraspinal muscles in the lumbar region, I suspect that the patient's discomfort is secondary to muscle spasm exacerbating his chronic sciatica Patient was treated with IM Dilaudid, Norflex and a Lidoderm patch Patient was reevaluated after pain medications, reports his pain is decreased from a 28 out of 10 to a 6 out of 10 which is much more tolerable than his baseline. Advised no active walking around and asking for discharge. I advised the patient I can discharge him with muscle relaxers as well as Lidoderm patches however he needs to follow with his painter helper for discussion of altering his Slayden. Patient is agreeable to this. Patient will contact his surgeon later today to discuss moving up his surgery if possible All questions pertaining care were answered to the best my ability return parameters were discussed and the patient was discharged home in stable condition. Disposition Clinical Impression: Mechanical back pain Disposition: HOME SELF-CARE Instructions: Chronic Back Pain (ED) Is patient prescribed a controlled substance at d/c from ED?: No Referrals: Luciano Shukla MD [Primary Care Provider] - 1-2 days
[2018-06-26 07:36] VITALS: BP 120/90; PULSE 58; TEMP 97.8
== END 2018-06-26 07:34 | disposition home or self-care (01) ==
LOC: EC 05:26
DX: M54.5 Low back pain (principal); G89.29 Other chronic pain; I25.10 Atherosclerotic heart disease of native coronary artery without angina pectoris; E78.5 Hyperlipidemia, unspecified; E11.9 Type 2 diabetes mellitus without complications; I10 Essential (primary) hypertension; F31.9 Bipolar disorder, unspecified; F25.9 Schizoaffective disorder, unspecified; Z79.82 Long term (current) use of aspirin; Z79.84 Long term (current) use of oral hypoglycemic drugs; Z79.899 Other long term (current) drug therapy; Z95.1 Presence of aortocoronary bypass graft; Z96.643 Presence of artificial hip joint, bilateral
CPT/HCPCS: 99283; 96372 ×2; J2360; J1170

== ENCOUNTER → 2018-07-01 | Outpatient (CLI) | payer MEDICARE, OTHER ==
[2018-07-01 10:44] LABS: Basophils % (A) 1 %; Eosinophils # (A) 0.2 k/uL (0-0.7); Eosinophils % (A) 5 %; HCT 42.3 % (39.0-53.0); HGB 14.2 gm/dL (13.0-17.5); Lymphocytes # (A) 1.1 k/uL (1.0-4.8); Lymphocytes % (A) 22 %; MCH 31.2 pg (25.0-35.0); MCHC 33.7 g/dL (31.0-37.0); MCV 92.8 fL (80.0-100.0); Mean Platelet Volume 6.3; Monocytes # (A) 0.2 k/uL (0-1.0); Monocytes % (A) 5 %; Neutrophils # (A) 3.5 k/uL (1.3-7.7); Neutrophils % (A) 67 %; Platelet Count 179 k/uL (150-450); RBC 4.56 m/uL (4.30-5.90); RDW 12.6 % (11.5-15.5); WBC 5.2 k/uL (3.8-10.6)
[2018-07-01 10:50] LABS: Appearance,Urine Clear (Clear); Bilirubin,Urine Negative (Negative); Blood,Urine Negative (Negative); Color,Urine Yellow; Glucose,Urine (UA) Negative (Negative); Hyaline Casts,Urine 11 /lpf (0-2); INR 1.1 (<1.2); Ketones,Urine Negative (Negative); Leukocyte Esterase,Urine Trace (Negative); Mucus,Urine Moderate /hpf; Nitrite,Urine Negative (Negative); PH, Urine 5.5 (5.0-8.0); Partial Thromboplastin Time 25.1 sec (22.0-30.0); Protein,Urine Trace (Negative); RBC,Urine <1 /hpf (0-5); Specific Gravity,Urine 1.022 (1.001-1.035); Squamous Epithelial Cell,Urine <1 /hpf (0-4); WBC,Urine 2 /hpf (0-5)
[2018-07-01 11:02] LABS: Calcium 9.4 mg/dL (8.4-10.2); Potassium 4.8 mmol/L (3.5-5.1)
--- NOTE | 2018-07-01 12:15 | XR ---
EXAMINATION TYPE: XR chest 2V DATE OF EXAM: 07/01/2018 COMPARISON: NONE HISTORY: Presurgical examination TECHNIQUE: Frontal and lateral views of the chest are obtained. FINDINGS: There is cardiomegaly and post CABG changes of the chest without evidence of the most ceph alad [id number] sternotomy wires. Moderate multilevel degenerative changes of the thoracic spine are seen as well as flowing anterior osteophytes. Minimal left basilar platelike subsegmental atelec tasis present. No focal consolidation, pleural effusion or pneumothorax. IMPRESSION: Minimal left basilar subsegmental atelectasis, otherwise no acute cardiopulmonary proces s.
== END ==
LOC: LABPAT 08:52
PROVIDERS: ATTEND Orthopaedic Surgery Orthopaedic Surgery of the Spine
DX: Z01.818 Encounter for other preprocedural examination (principal); J98.11 Atelectasis; K46.9 Unspecified abdominal hernia without obstruction or gangrene; Z51.81 Encounter for therapeutic drug level monitoring; Z79.01 Long term (current) use of anticoagulants; Z01.812 Encounter for preprocedural laboratory examination
CPT/HCPCS: 36415; 71046; 80048; 81001; 85025; 85610; 85730; 86850; 86900; 86901; 87070; 93005

== ENCOUNTER 2018-07-10 08:06 | Inpatient (IN) | payer MEDICARE, OTHER ==
[2018-07-05 10:30] VITALS: BMI 34.4
[~2018-07-10 08:06] MED LIST: BACITRACIN 50,000 UNIT, POLYMYXIN B 500,000 UNIT in SODIUM CHLORIDE 0.9% IRRIGATIO 1,00... IRRIGATION ONE; LIDOCAINE 1% 20 ML VIAL (10MG/ML) FOR IV START INTRADERMA PRN; ONDANSETRON 4 MG/2 ML VIAL IVP ONE; ceFAZolin IN SWFI 2 GM/20 ML SYRINGE IVP ONE
[2018-07-10] MEDS: LACTATED RINGERS 1,000 ML IV SCH (09:20)
[2018-07-10 09:37] LABS: Glucose,Whole Blood 84 mg/dL (75-99)
[2018-07-10] MEDS ORDERED: MIDAZOLAM 2 MG/2 ML VIAL IV ONE (09:40)
[2018-07-10] MEDS ORDERED: MIDAZOLAM 2 MG/2 ML VIAL ONE (10:29)
[2018-07-10] MEDS ORDERED: ROCURONIUM BROMIDE 10 MG/ML 10 ML VIAL IV ONE (10:29)
[2018-07-10] MEDS ORDERED: PHENYLEPHRINE-0.9% NACL SYG 1 MG/10 ML SYRINGE ONE (10:29)
[2018-07-10] MEDS ORDERED: LIDOCAINE 1% INJ 10MG/ML (20 ML MDV) ONE (10:29)
[2018-07-10] MEDS ORDERED: GLYCOPYRROLATE 0.2 MG/ML 2 ML VIAL ONE (10:29)
[2018-07-10] MEDS ORDERED: SUCCINYLCHOLINE CHLORIDE 100 MG/5 ML SYR IV ONE (10:29)
[2018-07-10] MEDS ORDERED: NEOSTIGMINE 1 MG/ML 10 ML VIAL ONE (10:29)
[2018-07-10] MEDS ORDERED: fentaNYL (PF) 50 MCG/ML 2 ML AMP ONE (10:29)
[2018-07-10] MEDS ORDERED: ePHEDrine SULFATE/0.9% NACL/PF 50 MG/5 ML SYRINGE IV ONE (10:29)
[2018-07-10] MEDS ORDERED: PROPOFOL 10 MG/ML 20 ML VIAL IV ONE (10:29)
[2018-07-10] MEDS ORDERED: LIDOCAINE 0.5%-EPI 1:200,000 50 ML VIAL SQ ONE (10:50)
[2018-07-10] MEDS ORDERED: GELATIN SPONGE,ABSORB (LARGE) 1 EACH SPONGE TOPICAL ONE (10:50)
[2018-07-10] MEDS ORDERED: THROMBIN (BOVINE) 5,000 UNIT VIAL TOPICAL ONE (10:50)
[2018-07-10] MEDS ORDERED: LACTATED RINGERS 1,000 ML IV ONE (13:12)
[2018-07-10] MEDS ORDERED: MAGNESIUM HYDROXIDE 2,400 MG/10 ML CUP PO PRN (13:15)
[2018-07-10] MEDS ORDERED: BENZOCAINE/MENTHOL LOZENG 1 EACH LOZENGE MUCOUS MEM PRN (13:15)
[2018-07-10] MEDS ORDERED: HYDROmorphone 1 MG/ML 1 ML SYRINGE IVP PRN ×3 (13:15→13:16)
[2018-07-10] MEDS ORDERED: HYDROcodone/APAP 5-325MG 1 EACH TAB PO PRN (13:16)
[2018-07-10] MEDS ORDERED: ONDANSETRON 4 MG/2 ML VIAL IVP PRN (13:16)
--- NOTE | 2018-07-10 13:25 | P.OP ---
Date of Procedure: 07/10/18 Preoperative Diagnosis: Herniated nucleus pulposus L5-S1, degenerative disc disease L5-S1, degenerative disc disease L5-S1, low back pain, lower extremity radiculopathy Postoperative Diagnosis: Same Anesthesia: GETA Pathology: none sent Condition: stable Description of Procedure: DESCRIPTION OF PROCEDURE(S): BRIEF OPERATIVE NOTE Preoperative Diagnosis: Herniated nucleus pulposus L5-S1, degenerative disc disease L5-S1, degenerative disc disease L5-S1, low back pain, lower extremity radiculopathy Postoperative Diagnosis: Same Procedure: Laminectomy and decompression L5-S1 Minimally invasive Posterior lateral decompression and facet fusion L5-S1 Minimally invasive Transforaminal lumbar interbody fusion for a 360 fusion L5-S1 Discectomy for decompression L5-S1 Placement of interbody graft L5-S1 Local autogenous bone grafting Harvesting of bone marrow aspirate from the pedicle and vertebral body of L5 Use of Cell Saver Use of bone graft extenders Surgeon: Dr. Patel Workforce Specialist: Bridger Munoz is present throughout the entire the case persistence during positioning, dissection, exposure, visualization, and all crucial elements of the case as well as closure. Anesthesia: General anesthesia per Dr. Jennings Estimated blood loss: Approximately 150 mL Complications: None apparent Components implanted: K2M minimally invasive [place] pedicle screw system with use of 4 screws measuring 6.5 mm in diameter to rods and 1 [place] interbody cage with 1 osteal amp spine and 15 mL of DBX bone fibers to supplement the bone graft Disposition: To recovery room in good stable condition. OPERATIVE INDICATIONS The patient has had long-standing issues in their lower back and lower extremities. His found have significant changes at L5-S1 with stenosis and disc herniation. He is having significant back pain and showed significant disc degeneration L5-S1. He was having back pain and lower extremity radiculopathy which was worsening despite aggressive conservative treatment. His symptoms correlated well with his low back imaging and findings. The patient has been through conservative treatment. We discussed various treatment options including surgery, and the patient wishes to proceed with surgery We discussed the risk, patient's alternatives and benefits of surgery including but not limited to, risk of bleeding risk of infection, risk of need for further surgery, risk of decreased, loss of motion, muscle function, malunion nonunion, hardware failure, nerve damage, paralysis, heart attack, blindness and . OPERATIVE SUMMARY After discussing all the risks, patient alternatives and benefits at length, the patient elected to proceed with surgical intervention, signed informed consent, and presented for their procedure. The patient was seen and examined in the preoperative holding area and the surgical site was marked. The patient was given antibiotics and brought to the operating room. The patient was sedated and intubated by anesthesia in standard fashion. The patient was positioned on to the operating room table in a prone position on the appropriate frame which was well-padded and well molded. We were careful to pad any bony prominences and pressure points. We were careful to maintain the patient's cervical spine and good neutral alignment and position throughout. The patient was prepped and draped in a normal standard fashion. An appropriate timeout and keystone protocol performed. We were able to proceed with the surgery. The local wound area was infiltrated with local anesthetic. I was able utilize C-arm guidance to establish appropriate position over the pedicles bilaterally at the appropriate levels at L5-S1. With the appropriate levels confirmed was able to make small stab incisions over the appropriate pedicle sites bilaterally. Utilizing C-arm in his house able to establish a Jamshidi needle over the lateral aspect of the pedicle and advanced the trocar into the pedicle being careful not to breech superiorly inferiorly medially or laterally. Position was confirmed regularly with AP and lateral images on C- arm. I was able to establish the trocar into the pedicle appropriately into the posterior aspect of the vertebral body bilaterally at the appropriate levels at L5-S1. At L5 on the right I was able to drop approximately 20 mL of bone marrow aspirate through the established trocar with this establish as able place the trochars appropriately at L5 and S1. This was done at each of the pedicle positions and each of the vertebrae. I was able place the guidewire into the trocar and into the vertebral body appropriately under C-arm guidance. Dissection was taken down over the wire to the appropriate starting position for the screw placed. The appropriate length screw was chosen, threaded over the guidewire and screwed appropriately into the pedicle and vertebral body under C-arm guidance in excellent alignment and position with good bony purchase. This is done at each of the screw sites at the appropriate levelsL5- S1. With the screws intact I extended the incision to connect the screw hole sites on the most symptomatic side on the right. I dissected down to establish access over the pars and lamina to the base of the spinous process. I was able to expose the facet joint. The capsule the facet was taken down and showed some facet arthrosis at the joint. I was able to use a combination of curettes and Kerrison rongeurs and a high-speed drill to take down the facet joint and do a facetectomy. Partial laminectomy was also performed. I was able get excellent foraminal decompression and central decompression with undermining across midline to perform a laminectomy centrally and contralaterally. As able get good central decompression. The ligamentum flavum was taken down to further decompress centrally and at bilateral neural foramen. I was able to expose the disc space and visualize the traversing nerve root. Note was made of some disc protrusion at the level causing further compression of the nerve root. I was able to establish a annulotomy at the appropriate level protecting soft tissue and neural structures. Note was made of some disc desiccation at the disc. I performed a complete discectomy with accommodation of curettes and rasps and scrapers. The disc I w removal provided further decompression. as able get good endplate preparation at the disc space. I sized for the appropriate size interbody spacer protecting the soft tissue and neural structures. The wound was copiously irrigated and suctioned dry. There is no evidence of any dural tear or leak. I was able to pack the disc space with local autogenous bone graft as well as a small amount of bone graft which was also placed into the interbody cage itself. Protecting the soft tissue structures and neural structures I was able place the interbody cage in good alignment and good position with good fit and fill at the interbody space. His issues was confirmed with C-arm guidance. Good hemostasis maintained. There is no evidence of any dural tear or leak. The wound was irrigated and suctioned dry. With the hardware intact, intraoperative C-arm imaging was again taken which showed good alignment and position of the hardware at the appropriate levels at L5-S1 . We were then able to measure, contour and place the rods and appropriate hardware bilaterally. I was able to place capcrews, tighten them down, and torque them with the torque screwdriver appropriately. With this intact I was able to place the local autogenous bone graft with additional bone graft enhancer as necessary into the posterior lateral gutters over the decorticated transverse processes. The remainder of the bone graft was placed over the facet joint on the contralateral side after taking down the facet joint capsule. With the bone graft intact, a stable construct, and good decompression at the appropriate levels, we were able to proceed with closure. Good hemostasis was maintained. There is no evidence of dural tear or leak. The fascia was closed for a watertight closure. he subcuticular tissue was closed with absorbable suture. The wound was cleaned and dried and dressed with the appropriate dressing. The drapes were broken down. The patient was gently rolled back onto their hospital bed being careful to maintain their cervical spine and good neutral alignment and position. They were woken up by anesthesia, extubated, and brought to the recovery room in good stable condition. The patient will be admitted to the hospital for appropriate postoperative care , medical management and monitoring. We will continue to follow them closely about the postoperative course.
[2018-07-10 13:47] LABS: Glucose,Whole Blood 96 mg/dL (75-99)
[2018-07-10] MEDS ORDERED: ONDANSETRON 4 MG/2 ML VIAL IVP ONE (13:48)
[2018-07-10] MEDS: HYDROmorphone 1 MG/ML 1 ML SYRINGE IVP PRN ×6 (13:48→20:26)
[2018-07-10] MEDS ORDERED: PROMETHAZINE INJ 25 MG/ML 1 ML VIAL IVPB ONE (14:15)
[2018-07-10] MEDS ORDERED: diphenhydrAMINE 50 MG/ML 1 ML VIAL IVP ONE (14:37)
--- NOTE | 2018-07-10 14:51 | XR ---
Fluoroscopy INDICATION: Pain FINDINGS: Fluoroscopy time: 1 minute 31 seconds. Images obtained: 4. IMPRESSIONS: 1. Documentation of fluoroscopy.
[2018-07-10] MEDS ORDERED: ceFAZolin IN SWFI 2 GM/20 ML SYRINGE IVP SCH (16:00)
[2018-07-10] MEDS: ceFAZolin IN SWFI 2 GM/20 ML SYRINGE IVP SCH (18:16)
[2018-07-10] MEDS: HYDROcodone/APAP 5-325MG 1 EACH TAB PO PRN ×2 (18:18→22:49)
[2018-07-10] MEDS: SODIUM CHLORIDE 0.9% 1,000 ML IV SCH (20:27)
[2018-07-10 20:37] LABS: Glucose,Whole Blood 154 mg/dL (75-99)
[2018-07-11] MEDS: HYDROmorphone 1 MG/ML 1 ML SYRINGE IVP PRN (00:01)
--- NOTE | 2018-07-11 00:18 | P.CONS ---
History of Present Illness - Reason for Consult Consult date: 07/10/18 Medical management of hypertension, diabetes and other medical problems. - Chief Complaint Elective disc fusion surgery - History of Present Illness Patient is a 57-year-old male with a known history of coronary artery disease and bypass graft in 1998, non-insulin dependent diabetes type 2, hypertension and history of renal cell carcinoma status post left nephrectomy and multiple other medical problems was admitted to the hospital for elective lumbar disc fusion surgery. Patient was found have herniated nucleus pulposus L5-S1 and degenerative disc disease. Patient was having lower back pain and lower extremity radiculopathy symptoms. Patient tolerated the procedure very well. Currently denied any complaints of numbness or tingling in the legs. Pain is fairly controlled. No nausea vomiting or abdominal pain. No fever no chills. No headache or dizziness or lightheadedness. Review of Systems Constitutional: Patient denies any fever or chills . No generalized weakness or weight loss. Abdomen: Patient denied nausea vomiting and diarrhea and abdominal pain. Cardiovascular: Patient denies any chest pain or short of breath no palpitations. Respiratory: patient denied any cough is from production. No shortness of breath Neurologic: Patient denied any numbness or tingling headache. Musculoskeletal: Patient denies any complaints of joint swelling or deformity. Skin: Negative Psychiatric: Negative Endocrine: No heat or cold intolerance. No recent weight gain. Genitourinary: No dysuria or hematuria. All other 14 point ROS negative except the above Past Medical History Past Medical History: Coronary Artery Disease (CAD), Cancer, Diabetes Mellitus, Hyperlipidemia, Hypertension Additional Past Medical History / Comment(s): , chronic diarrhea since sleeve surgery in 2012, KIDNEY CANCER History of Any Multi-Drug Resistant Organisms: None Reported Past Surgical History: Appendectomy, Coronary Bypass/CABG, Joint Replacement, Orthopedic Surgery Additional Past Surgical History / Comment(s): lt kidney removed, BILAT TKA,guerda shoulders scoped,LAP-BAND,Gastric sleeve conversion,bowel adhesions removed, COLONOSCOPY, EGD Past Anesthesia/Blood Transfusion Reactions: No Reported Reaction Smoking Status: Former smoker - Past Family History Mother Family Medical History: Cancer Additional Family Medical History / Comment(s): at age 66 from Breast Cancer Father Additional Family Medical History / Comment(s): at age 76 from emphysema Medications and Allergies Home Medications Medication Instructions Recorded Confirmed Type Atorvastatin [Lipitor] 40 mg PO DAILY 08/07/16 07/10/18 History Aspirin EC [Ecotrin Low Dose] 81 mg PO DAILY 08/22/16 07/10/18 History QUEtiapine [SEROquel] 400 mg PO HS 03/25/18 07/10/18 History metFORMIN HCL [Glucophage] 500 mg PO DAILY 03/25/18 07/10/18 History HYDROcodone/APAP 10-325MG [Rogers 1 tab PO TID 07/05/18 07/10/18 History 10-325] Allergies Allergy/AdvReac Type Severity Reaction Status Date / Time No Known Allergies Allergy Verified 07/10/18 14:10 Physical Exam Vitals: Vital Signs Temp Pulse Resp BP Pulse Ox 07/10/18 14:45 62 18 131/68 93 L 07/10/18 14:30 59 L 18 132/68 99 07/10/18 14:15 59 L 18 137/71 99 07/10/18 14:00 60 18 140/70 99 07/10/18 13:45 67 18 162/85 95 07/10/18 13:34 97 F L 87 18 146/79 95 07/10/18 09:03 97.6 F 60 16 141/67 99 Intake and Output 07/10/18 07/10/18 07/10/18 06:59 14:59 22:59 Intake Total 1501 Output Total 290 Balance 1211 Intake: IV 1501 Output: Urine 215 Estimated Blood Loss 75 PHYSICAL EXAMINATION: Patient is lying in the bed comfortably, no acute distress, awake alert and oriented.. HEENT: Normocephalic. Neck is supple. Pupils reactive. Nostrils clear. Oral cavity is moist. Ears reveal no drainage. Neck reveals no JVD, carotid bruits, or thyromegaly. CHEST EXAMINATION: Trachea is central. Symmetrical expansion. Lung red clear to auscultation and percussion. CARDIAC: Normal S1, S2 with no gallops. No murmurs ABDOMEN: Soft. Bowel sounds normal. No organomegaly. No abdominal bruits. Extremities: reveal no edema. No clubbing or cyanosis Neurologically awake, alert, oriented x3 with well-coordinated movements. No focal deficits noted Skin: No rash or skin lesions. Psychiatric: Coperative. Nonsuicidal Musculoskeletal: No joint swelling or deformity. Normal range of motion. Assessment and Plan Assessment: Status post lumbar disc fusion surgery. L5-S1 herniated disc and degenerative joint disease with chronic lower back pain and pelvic lethargic symptoms. Hypertension controlled Diabetes type 2 non- insulin-dependent Coronary artery disease with history of bypass graft in 1998 Chronic diarrhea since sleeve surgery 2012 Left renal cancer status post nephrectomy Previous history of smoking Hyperlipidemia DVT prophylaxis Plan: Patient will be continued on pain medications and bowel regimen. Encourage incentive spirometry. Continue with home medications include aspirin statins and Seroquel. Continue with metformin and insulin sliding scale. DVT prophylaxis. Will follow closely and further recommendations based on the clinical course. Thank you for your consult.
[2018-07-11] MEDS: QUEtiapine 400 MG TAB PO SCH ×2 (00:31→20:37)
[2018-07-11] MEDS: ceFAZolin IN SWFI 2 GM/20 ML SYRINGE IVP SCH (03:16)
[2018-07-11] MEDS: SODIUM CHLORIDE 0.9% 1,000 ML IV SCH ×2 (03:16→08:40)
[2018-07-11] MEDS: LACTATED RINGERS 1,000 ML IV SCH (03:17)
[2018-07-11] MEDS: HYDROcodone/APAP 5-325MG 1 EACH TAB PO PRN ×3 (03:20→23:31)
[2018-07-11 07:13] LABS: Basophils % (A) 0 %; Eosinophils # (A) 0.1 k/uL (0-0.7); Eosinophils % (A) 2 %; HCT 36.2 % (39.0-53.0); Lymphocytes # (A) 0.9 k/uL (1.0-4.8); Lymphocytes % (A) 14 %; MCH 31.2 pg (25.0-35.0); MCHC 33.2 g/dL (31.0-37.0); MCV 93.8 fL (80.0-100.0); Mean Platelet Volume 6.4; Monocytes # (A) 0.3 k/uL (0-1.0); Monocytes % (A) 5 %; Neutrophils # (A) 4.8 k/uL (1.3-7.7); Neutrophils % (A) 77 %; Platelet Count 144 k/uL (150-450); RBC 3.85 m/uL (4.30-5.90); RDW 12.4 % (11.5-15.5); WBC 6.2 k/uL (3.8-10.6)
[2018-07-11 07:40] LABS: Glucose,Whole Blood 88 mg/dL (75-99)
[2018-07-11 08:12] LABS: Potassium 4.1 mmol/L (3.5-5.1)
[2018-07-11] MEDS: metFORMIN 500 MG TAB PO SCH (08:39)
[2018-07-11] MEDS: SENNOSIDES-DOCUSATE SODIUM 1 EACH TAB PO SCH (08:39)
[2018-07-11] MEDS: ATORVASTATIN 40 MG TAB PO SCH (08:39)
[2018-07-11] MEDS: ASPIRIN 81 MG PO SCH (08:39)
--- NOTE | 2018-07-11 09:43 | P.PN ---
Progress Note - Text Progress Note Date: 07/11/18 Postoperative day #1 Patient is seen and examined today at bedside. The patient has some pain around the surgical site as expected. Pain is being controlled with medication. The patient has been up and around in his room. His pain is controlled with IV pain medications at this point. He has been able to eat some fluid already. Physical Exam Afebrile with stable vital signs Abdomen is soft nontender. Chest has good excursion deep and space expiration The incision site is clean dry and intact. No erythema there is no purulence. There is some small bloody drainage on the dressing but appears stable Extremities have not had neurologic change from prior to surgery. He has sustained dorsal flexion plantar flexion and EHL intact Calves and thighs were soft nontender without evidence of DVT. Assessment/Plan Postoperative day #1 status post minimally invasive decompression and fusion at L5-S1 for his lumbar stenosis with disc herniation and lower extremity neuropathy Patient is progressing as expected from the surgery. He is progressing well less far and is sitting up in bed and is doing well with his mobility We will continue to increase the patient's mobilization with therapy. We will continue pain control with oral or IV medications. Hopefully he will be able to be discharged home in the next 1-2 days. We'll continue to follow patient closely.
[2018-07-11 12:03] LABS: Glucose,Whole Blood 91 mg/dL (75-99)
[2018-07-11 17:22] LABS: Glucose,Whole Blood 128 mg/dL (75-99)
--- NOTE | 2018-07-11 18:15 | PN ---
PROGRESS NOTE DATE OF SERVICE: 07/28/2018 This 57-year-old gentleman who was admitted after lumbar disc fusion is being closely monitored. No chest pain. No palpitations. No fever. The patient is complaining of back pain at this time. PHYSICAL EXAMINATION: Alert and oriented x3. Pulse is 71, blood pressure 107/63, respiration 16, temperature 99.2, pulse ox 98% on room air. HEENT: Conjunctivae normal. NECK: No jugular venous distention. CARDIOVASCULAR SYSTEM: S1, S2 muffled. RESPIRATORY SYSTEM: Breath sounds diminished at the bases. A few rhonchi. No crackles. ABDOMEN: Soft, non-tender. LEGS: No edema. No swelling. EXAMINATION OF BACK: Pain. LABS: WBC 6.2, hemoglobin 12, platelets 144. ASSESSMENT: 1. Status post lumbar disc fusion surgery. 2. L5-S1 herniated disc and degenerative joint disease. 3. Hypertension. 4. Diabetes mellitus, type 2. 5. Coronary artery disease, coronary artery bypass grafting. 6. Chronic diarrhea. 7. History of sleeve surgery. 8. History of left renal cancer. 9. History of smoking. 10.Hyperlipidemia. 11.Deep venous thrombosis prophylaxis. RECOMMENDATIONS AND DISCUSSION: I recommend to continue current management, continue symptomatic treatment. Otherwise at this time I recommend monitoring closely. Monitor blood sugars closely, which are controlled at this time. Symptomatic treatment of the pain. I would also recommend repeat CBC. The platelets are slightly low at this point. Closely follow with Dr. Patel. Further recommendations to follow. Home medication reconciliation has been done. MMODL / IJN: [id number] /
--- NOTE | 2018-07-11 19:28 | P.PN ---
Subjective Progress Note Date: 07/11/18 Progress note being dictated for Dr. Cabezas. Interval history:Patient is a 57-year-old male with a known history of coronary artery disease and bypass graft in 1998, non-insulin dependent diabetes type 2, hypertension and history of renal cell carcinoma status post left nephrectomy and multiple other medical problems was admitted to the hospital for elective lumbar disc fusion surgery. Patient was found have herniated nucleus pulposus L5-S1 and degenerative disc disease. Patient was having lower back pain and lower extremity radiculopathy symptoms. Patient tolerated the procedure very well. Currently denied any complaints of numbness or tingling in the legs. Pain is fairly controlled. No nausea vomiting or abdominal pain. No fever no chills. No headache or dizziness or lightheadedness. 07/11/2018 pain currently controlled, denies spasms. No flatus, no bowel movement. Good diet intake with no nausea or vomiting. Blood sugars controlled. No abdominal pain. Denies lightheadedness dizziness or focal deficits. Denies chest pain, palpitations or increasing shortness of breath. T -max 99.2. Objective - Vital Signs Vital signs: Vital Signs Temp 99.0 F 07/11/18 15:00 Pulse 74 07/11/18 15:00 Resp 16 07/11/18 15:00 BP 108/62 07/11/18 15:00 Pulse Ox 94 L 07/11/18 15:00 Intake & Output 07/11/18 07/11/18 07/12/18 06:59 18:59 06:59 Intake Total 600 240 Output Total 500 200 Balance 100 40 Intake: Intake, IV Titration 600 Amount Sodium Chloride 0.9% 1, 600 000 ml @ 75 mls/hr IV . [id number] [facility] Rx#:[id number] Oral 240 Output: Urine 500 200 Uretheral (Nix) 200 Other: Voiding Method Indwelling Catheter - Exam Patient is sitting up in the bed comfortably, no acute distress, awake alert and oriented. HEENT: Normocephalic. Neck is supple. Pupils reactive. Nostrils clear. Oral mucosa moist. Neck reveals no JVD, carotid bruits, or thyromegaly. CHEST EXAMINATION: Trachea is central. Symmetrical expansion. Bilateral bases diminished. CARDIAC: Normal S1, S2 with no gallops. No murmurs ABDOMEN: Soft. Bowel sounds normal. No organomegaly. No guarding, no rigidity Extremities: reveal no edema. No clubbing or cyanosis Neurologically awake, alert, oriented x3 with well-coordinated movements. No focal deficits noted Skin: No rash or skin lesions. Musculoskeletal: No joint swelling or deformity, normal range of motion. - Labs CBC & Chem 7: 07/11/18 06:41 07/11/18 06:41 Labs: Abnormal Lab Results - Last 24 Hours (Table) 07/10/18 07/11/18 07/11/18 Range/Units 20:23 06:41 06:41 RBC 3.85 L (4.30-5.90) m/uL Hgb 12.0 L (13.0-17.5) gm/dL Hct 36.2 L (39.0-53.0) % Plt Count 144 L (150-450) k/uL Lymphocytes # 0.9 L (1.0-4.8) k/uL Chloride 108 H (98-107) mmol/L POC Glucose (mg/dL) 154 H (75-99) mg/dL Calcium 8.0 L (8.4-10.2) mg/dL 07/11/18 Range/Units 17:09 RBC (4.30-5.90) m/uL Hgb (13.0-17.5) gm/dL Hct (39.0-53.0) % Plt Count (150-450) k/uL Lymphocytes # (1.0-4.8) k/uL Chloride (98-107) mmol/L POC Glucose (mg/dL) 128 H (75-99) mg/dL Calcium (8.4-10.2) mg/dL Assessment and Plan Assessment: Status post lumbar disc fusion surgery. L5-S1 herniated disc and degenerative joint disease with chronic lower back pain Hypertension Diabetes type 2 non- insulin-dependent Coronary artery disease with history of bypass graft in 1998 Chronic diarrhea since sleeve surgery 2012 Left renal cancer status post nephrectomy Previous history of smoking Hyperlipidemia DVT prophylaxis Plan: Continue on current medication regime ,monitoring and symptomatic treatment. Bowel regimen in place. Pain management. PT/OT-as per surgery. Aggressive pulmonary toileting with incentive spirometer reinforced. Nix discontinued, not yet voided. Bladder scan ordered. Further recommendations to follow. The impression and plan of care has been dictated as directed. : I performed a history and examination of this patient, discussed the same with the dictator. I agree with the dictator's note ,documented as a scribe. Any additional findings or plans will be noted.
[2018-07-11 20:23] LABS: Glucose,Whole Blood 151 mg/dL (75-99)
[2018-07-11] MEDS: TAMSULOSIN 0.4 MG CAP.ER.24H PO SCH (23:28)
[2018-07-12] MEDS: LACTATED RINGERS 1,000 ML IV SCH (01:32)
[2018-07-12] MEDS: SODIUM CHLORIDE 0.9% 1,000 ML IV SCH ×2 (01:32→18:30)
[2018-07-12 07:42] LABS: Glucose,Whole Blood 103 mg/dL (75-99)
[2018-07-12] MEDS: HYDROcodone/APAP 5-325MG 1 EACH TAB PO PRN (08:47)
[2018-07-12 08:48] LABS: Basophils % (A) 0 %; Eosinophils # (A) 0.1 k/uL (0-0.7); Eosinophils % (A) 2 %; HCT 37.2 % (39.0-53.0); HGB 11.8 gm/dL (13.0-17.5); Lymphocytes # (A) 0.8 k/uL (1.0-4.8); Lymphocytes % (A) 13 %; MCH 29.9 pg (25.0-35.0); MCHC 31.8 g/dL (31.0-37.0); MCV 93.8 fL (80.0-100.0); Mean Platelet Volume 6.4; Monocytes # (A) 0.4 k/uL (0-1.0); Monocytes % (A) 5 %; Neutrophils # (A) 5.2 k/uL (1.3-7.7); Neutrophils % (A) 78 %; Platelet Count 145 k/uL (150-450); RBC 3.97 m/uL (4.30-5.90); RDW 12.2 % (11.5-15.5); WBC 6.6 k/uL (3.8-10.6)
[2018-07-12] MEDS: SENNOSIDES-DOCUSATE SODIUM 1 EACH TAB PO SCH (08:48)
[2018-07-12] MEDS: ASPIRIN 81 MG PO SCH (08:48)
[2018-07-12] MEDS: ATORVASTATIN 40 MG TAB PO SCH (08:48)
[2018-07-12] MEDS: metFORMIN 500 MG TAB PO SCH (08:48)
[2018-07-12 09:03] LABS: Calcium 8.6 mg/dL (8.4-10.2); Potassium 4.6 mmol/L (3.5-5.1)
[2018-07-12] MEDS ORDERED: HYDROcodone/APAP 7.5-325MG 1 EACH TAB PO PRN (09:21)
--- NOTE | 2018-07-12 12:01 | P.PN ---
Progress Note - Text Progress Note Date: 07/12/18 Orthopedic Spine Patient is a pleasant 57-year-old male who is seen and examined at the bedside following posterior lateral decompression and fusion performed Sunday. Patient states they are doing ok postsurgically. He continues to have significant pain at the surgical sites and some pain radiating towards the right hip. He is not currently experiencing significant pain radiating into bilateral lower extremities. He has had some difficulty with urination postoperatively. Straight catheterization was performed last evening with 800 mL of urine taken at that time. Flomax has been started by medicine. Currently does not complain of nausea, vomiting, fever, or chills. Patient states pain has been adequately controlled. Patient is eating and voiding freely without difficulty. He has been avoiding IV pain medications. He has been working with physical therapy. He would like to see if he be able to ambulate steps prior to discharge. Physical Exam Lumbar Fusion: Status post surgical day number 2 Patient is awake, alert, and oriented 3 Vital signs stable Good chest excursion with deep inspiration and expiration Abdomen soft nontender He has difficulty rolling over in bed Dorsiflexion, plantarflexion, and extensor hallucis longus positive sustained bilaterally No signs or symptoms of DVT; no calf pain; pneumatic cuffs not currently intact bilateral lower extremities Evidence of a well-healed incision over the left medial calf from previous surgical intervention No significant pain with palpation over the surgical sites Dressing is clean and intact with some dried blood; no erythema, purulence, or signs of infection Neurovascularly intact bilaterally lower extremities No pain with internal and external rotation of the hips bilaterally Nix catheter has been discontinued Assessment: L5-S1 minimally invasive posterior lateral decompression and fusion and transforaminal lumbar interbody fusion Low back pain with radiating to the right hip L5-S1 degenerative disc disease Urinary retention Plan: 1. Ambulate as tolerated; work with Physical Therapy to increase mobilization; we will plan to have physical therapy see if he is able to ambulate steps 2. Continue pain control with IV and oral medications; we will discontinue [place] 5 mg/325 mg and increase to [place] 7.5 mg/325 mg 1-2 tabs every 4 hours as needed for pain; we will plan to hold a lot of IV pain medication except for breakthrough pain in anticipation for possible discharge home tomorrow, 2017 3. Dressing of Telfa and Tegaderm; we may plan to change dressing prior to discharge 4. Medical management can continue to manage patient for patient's other medical issues including urinary retention 5. We will continue to follow the patient closely 6. Patient can follow-up with Bridger Glasgow PA-C or Dr. Jose Patel at [facility] in 2-3 weeks following discharge
[2018-07-12 12:12] LABS: Glucose,Whole Blood 100 mg/dL (75-99)
[2018-07-12 17:26] LABS: Glucose,Whole Blood 92 mg/dL (75-99)
[2018-07-12] MEDS: HYDROcodone/APAP 7.5-325MG 1 EACH TAB PO PRN (17:45)
--- NOTE | 2018-07-12 20:01 | PN ---
PROGRESS NOTE DATE OF SERVICE: 07/12/2018 This 57-year-old gentleman who was admitted with lumbar disc fusion surgery also had difficulties with also. The patient had a straight cath yesterday significant residual volume is noted. No chest pain. No palpitations. No fever. EXAM: Alert and oriented x2. Pulse 70, blood pressure 130/72, respirations 16, temperature 98.9, pulse ox 97% on room air. HEENT: Conjunctivae normal. NECK: No jugular venous distention. CARDIOVASCULAR: S1, S2 muffled. Respiratory: Breath sounds diminished in the bases. No rhonchi. No crackles. Abdomen is soft, nontender. No mass palpable. Legs are no edema. No swelling. Central nervous system: No focal deficits. Examination of the back status post surgery. LABS: WBC 6.2, hemoglobin 11.8, and platelets 145. ASSESSMENT: 1. Status post lumbar fusion surgery. 2. L5-S1 herniated disc, degenerative joint disease with chronic low back pain. 3. Hypertension. 4. Urinary retention. 5. Diabetes mellitus type 2, non-insulin. 6. History of coronary artery disease, coronary artery bypass grafting. 7. Chronic diarrhea since sleeve surgery in 2012. 8. Left renal cancer status post nephrectomy. 9. Previous history of smoking. 10.Hyperlipidemia. 11.History of deep vein thrombosis prophylaxis. RECOMMENDATIONS AND DISCUSSION: Recommend to continue current medications, management and symptomatic treatment. Otherwise at this time I recommend continue with Flomax and continue to monitor. Otherwise repeat labs. Closely follow with Orthopedic Surgery. Further recommendations the patient follow. Prognosis guarded. MMODL / IJN: [id number] / [facility] HOSPITALGilberto
[2018-07-12] MEDS: TAMSULOSIN 0.4 MG CAP.ER.24H PO SCH (21:07)
[2018-07-12] MEDS: QUEtiapine 400 MG TAB PO SCH (22:51)
[2018-07-13 03:13] VITALS: PULSE 73; RESP 16
[2018-07-13] MEDS: HYDROcodone/APAP 7.5-325MG 1 EACH TAB PO PRN ×2 (06:48→15:02)
[2018-07-13] MEDS: LACTATED RINGERS 1,000 ML IV SCH (08:21)
[2018-07-13] MEDS: SENNOSIDES-DOCUSATE SODIUM 1 EACH TAB PO SCH (08:27)
[2018-07-13] MEDS: ATORVASTATIN 40 MG TAB PO SCH (08:27)
[2018-07-13] MEDS: ASPIRIN 81 MG PO SCH (08:27)
[2018-07-13] MEDS: metFORMIN 500 MG TAB PO SCH (08:27)
[2018-07-13] MEDS: SODIUM CHLORIDE 0.9% 1,000 ML IV SCH (08:33)
[2018-07-13 08:35] VITALS: BP 95/56; TEMP 97.9
--- NOTE | 2018-07-13 11:00 | P.DS ---
Providers Date of admission: 07/10/18 08:06 Attending physician: Jose A Patel Consults: 07/10/18 13:16 Consult Physician Routine Consulting Provider: Ya Cabezas Consult Reason/Comments: Medical management Do you want consulting provider notified?: Yes Primary care physician[facility] Course: The patient presented on the day of admission as per his operative note. He underwent minimally invasive decompression and fusion for his spinal stenosis with disc herniation and degenerative disc disease with lower extremity radiculopathy at L5-S1 as per his operative note. He feels his legs are doing well. He has soreness around his back but is being controlled with medication. He is tolerating his regular diet he is passing a small amount of gas but has not yet had a bowel movement. He is not nauseous. He denies any nausea or vomiting. Physical Exam The incision site is clean dry and intact. There is no erythema no drainage. There is no purulence no evidence of infection. There is no active drainage Abdomen soft and nontender. There is no significant distention. His abdomen soft. No rebound. Chest has good excursion with deep inspiration and expiration. The patient has active and passive range of motion intact at the upper and lower extremities. There is no acute change in neurologic status. He has sustained dorsal flexion plantar flexion and [facility] Hospital Course Postoperative day #3 status post no invasive decompression and fusion at L5-S1 for his spinal stenosis with disc herniation lower extremity radiculopathy and back pain. The patient has been making good progress postoperatively. They have completed the prophylactic antibiotics without any signs or symptoms of infection. The patient has been able to advance their diet, and is tolerating diet adequately. The pain was initially controlled with IV medications and is now controlled appropriately with oral medications. The patient has been able to increase their mobilization. The patient has progressed appropriately. I think they are in good stable condition for discharge today Once his bowels are moving more he is passing further gas or has a bowel movement. They will be sent home with appropriate prescriptions For pain with [place]. I answered their questions to the best of my ability in a language that they can understand and they are agreeable with the plan. They will follow up as directedIn approximately 2 weeks or sooner if he is having any problems. Patient Condition at Discharge: Good Plan - Discharge Summary Discharge Rx Participant: Yes New Discharge Prescriptions: New HYDROcodone/APAP 10-325MG [[place] 10-325] 1 tab PO Q6H PRN #42 tab PRN Reason: Pain No Action Atorvastatin [Lipitor] 40 mg PO DAILY Aspirin EC [Ecotrin Low Dose] 81 mg PO DAILY QUEtiapine [SEROquel] 400 mg PO HS metFORMIN HCL [Glucophage] 500 mg PO DAILY HYDROcodone/APAP 10-325MG [[place] 10-325] 1 tab PO TID Discharge Medication List Atorvastatin [Lipitor] 40 mg PO DAILY 08/07/16 [History] Aspirin EC [Ecotrin Low Dose] 81 mg PO DAILY 08/22/16 [History] QUEtiapine [SEROquel] 400 mg PO HS 03/25/18 [History] metFORMIN HCL [Glucophage] 500 mg PO DAILY 03/25/18 [History] HYDROcodone/APAP 10-325MG [[place] 10-325] 1 tab PO TID 07/05/18 [History] HYDROcodone/APAP 10-325MG [[place] 10-325] 1 tab PO Q6H PRN #42 tab 07/13/18 [Rx] Follow up Appointment(s)/Referral(s): Jose A Patel DO [Doctor of Osteopathic Medicine] - 08/02/18 1:00 pm Activity/Diet/Wound Care/Special Instructions: 1. Patient may shower with Tegaderm dressing intact. 2. Patient may remove Tegaderm dressing in 3 days and shower without a dressing at that time. 3. Patient should keep Steri-Strips intact and allow them to fall off naturally. 4. Patient should refrain from driving until at least after their first follow- up appointment in the office. 5. Patient should avoid excessive bending, twisting, and lifting; no lifting greater than 10 pounds 6. Take medications as prescribed 7. Do not soak in tub Discharge Disposition: HOME SELF-CARE
--- NOTE | 2018-07-13 17:32 | PN ---
PROGRESS NOTE DATE OF SERVICE: 07/13/2018 This 57-year-old gentleman admitted after lumbar fusion surgery is complaining of some constipation. No chest pain. No palpitations. No fever. EXAM: Alert and oriented x3. Pulse 73, blood pressure 118/60, respirations 16, temperature 98.2, pulse ox 98% on room air. HEENT: Conjunctivae normal. Oral mucosa moist. NECK: No jugular venous distention. No lymph node enlargement. CARDIOVASCULAR: S1, S2. RESPIRATORY: Diminished breath sounds at the bases. No rhonchi, no crackles. ABDOMEN: Soft, nontender. LEGS: No swelling. NERVOUS SYSTEM: No focal deficits. BACK: Status post surgery. LABS: Accu-Cheks 103, hemoglobin 11.8. ASSESSMENT: 1. Status post lumbar fusion surgery. 2. L5-S1 herniated disc. 3. Degenerative joint disease with chronic low back pain. 4. Hypertension. 5. Urinary retention. 6. Diabetes mellitus type 2, non-insulin dependent. 7. History of coronary artery disease, coronary artery bypass grafting. 8. Chronic diarrhea since sleeve surgery in 2012. 9. Left renal cancer status post nephrectomy. 10.Previous history of smoking. 11.Hyperlipidemia. 12.History of DVT prophylaxis. RECOMMENDATIONS: Recommend to continue current management. Resume the home medications. Mike p.r.n. Closely follow with primary physician in the outpatient setting. Otherwise, rest of the recommendations per Orthopedic surgery. Further recommendations to follow. MMODL / IJN: [id number] /
== END 2018-07-13 15:15 | disposition home or self-care (01) | DRG 455 ==
LOC: 2ORMAIN 08:06 → 4SSUR 13:42
PROVIDERS: ADMIT Orthopaedic Surgery Orthopaedic Surgery of the Spine; ATTEND Orthopaedic Surgery Orthopaedic Surgery of the Spine
PROC: 0SG0071 Fusion of Lumbar Vertebral Joint with Autologous Tissue Substitute, Posterior Approach, Posterior Column, Open Approach (ICD-10-PCS; 2018-07-10)
PROC: 0ST40ZZ Resection of Lumbosacral Disc, Open Approach (ICD-10-PCS; 2018-07-10)
PROC: 07DS3ZZ Extraction of Vertebral Bone Marrow, Percutaneous Approach (ICD-10-PCS; 2018-07-10)
PROC: 30233N0 Transfusion of Autologous Red Blood Cells into Peripheral Vein, Percutaneous Approach (ICD-10-PCS; 2018-07-10)
PROC: 0SG30AJ Fusion of Lumbosacral Joint with Interbody Fusion Device, Posterior Approach, Anterior Column, Open Approach (ICD-10-PCS; principal; 2018-07-10 09:45)
DX: M51.17 Intervertebral disc disorders with radiculopathy, lumbosacral region (principal); E78.5 Hyperlipidemia, unspecified; G89.29 Other chronic pain; I10 Essential (primary) hypertension; I25.10 Atherosclerotic heart disease of native coronary artery without angina pectoris; K52.9 Noninfective gastroenteritis and colitis, unspecified; K59.00 Constipation, unspecified; M48.061 Spinal stenosis, lumbar region without neurogenic claudication; R33.9 Retention of urine, unspecified; E11.9 Type 2 diabetes mellitus without complications; K21.9 Gastro-esophageal reflux disease without esophagitis; F32.9 Major depressive disorder, single episode, unspecified; F41.9 Anxiety disorder, unspecified; M47.9 Spondylosis, unspecified; M43.17 Spondylolisthesis, lumbosacral region; M25.78 Osteophyte, vertebrae; Z79.84 Long term (current) use of oral hypoglycemic drugs; Z79.82 Long term (current) use of aspirin; Z79.891 Long term (current) use of opiate analgesic; Z79.899 Other long term (current) drug therapy; Z85.528 Personal history of other malignant neoplasm of kidney; Z87.891 Personal history of nicotine dependence; Z95.1 Presence of aortocoronary bypass graft; Z90.5 Acquired absence of kidney; Z98.84 Bariatric surgery status; Z96.653 Presence of artificial knee joint, bilateral; Z86.718 Personal history of other venous thrombosis and embolism; Z80.3 Family history of malignant neoplasm of breast; Z82.5 Family history of asthma and other chronic lower respiratory diseases; Z83.3 Family history of diabetes mellitus
CPT/HCPCS: 72020; 80048; 85025; 86850; 86900; 86901

== ENCOUNTER 2018-08-19 16:13 | Emergency (ER) | payer MEDICARE, OTHER ==
[2018-08-19 16:37] VITALS: RESP 18
[2018-08-19] MEDS ORDERED: HYDROcodone/APAP 10-325MG 1 EACH TAB PO ONE (16:52)
[2018-08-19] MEDS ORDERED: CYCLOBENZAPRINE 10 MG TAB PO STA (16:52)
--- NOTE | 2018-08-19 18:03 | XR ---
PROCEDURE: XR lumbar spine 3V DATE AND TIME: 08/19/2018 5:15 PM CLINICAL INDICATION: PHH; low back pain TECHNIQUE: Department protocol COMPARISON: 09/02/2013 FINDINGS: The orthopedic hardware at the lumbosacral junction is intact. There is no fracture or malalignment. No focal osteolytic or osteosclerotic findings. No incidental acute soft tissue findings. IMPRESSION: NO ACUTE PROCESS.
--- NOTE | 2018-08-19 18:10 | ED ---
Back Pain HPI - General Chief Complaint: Back Pain/Injury Stated Complaint: Back Pain Time Seen by Provider: 08/19/18 16:38 Source: patient Limitations: no limitations - History of Present Illness Initial Comments: 57-year-old male with past medical history of chronic low back pain with recent fusion of L5-S1 on 07/10/[address] Patel presenting today for low back pain. Patient states he was receiving outpatient ultrasound for his kidneys. Patient states when he went to sit up from the table he bent his knees towards his chest and he felt a lightening bolt sensation in his lower back. He states the pain is 6 out of 10 sharp pain that increases with movement. Patient states is a bandlike on both sides of the lower back. Patient states he called his primary care provider who told him if he is concerned he may presents emergency department since he is at [facility] currently. Patient denies any associated symptoms including loss of sensation, numbness tingling or weakness of the lower extremity is. He denies any fever, chills, IV drug use, night sweats, cancer loss of bowel bladder control or urinary retention. And states that following the infusion patient had significant improvement of pain and has been taking [place] at home as needed. He denies taking any medication today. Patient denies any radiation down the legs, fall, recent falls, trauma to the back or car accidents. Patient denies any increase in pain prior to onset today. Remainder ROS negative, patient denies any recent shortness of breath, chest pain, abdominal pain, nausea or vomiting, numbness or tingling, dysuria or hematuria, constipation or diarrhea, headaches or visual changes, or any other complaints. Upon arrival patient's vital signs within acceptable limits, patient afebrile appearing well ambulating without difficulty. - Related Data Home Medications Medication Instructions Recorded Confirmed Atorvastatin [Lipitor] 40 mg PO DAILY 08/07/16 07/10/18 Aspirin EC [Ecotrin Low Dose] 81 mg PO DAILY 08/22/16 07/10/18 QUEtiapine [SEROquel] 400 mg PO HS 03/25/18 07/10/18 metFORMIN HCL [Glucophage] 500 mg PO DAILY 03/25/18 07/10/18 HYDROcodone/APAP 10-325MG [[place] 1 tab PO TID 07/05/18 07/10/18 10-325] Previous Rx's Medication Instructions Recorded HYDROcodone/APAP 10-325MG [[place] 1 tab PO Q6H PRN #42 tab 07/13/18 10-325] Cyclobenzaprine [Flexeril] 10 mg PO HS 4 Days #4 tab 08/19/18 Allergies Allergy/AdvReac Type Severity Reaction Status Date / Time No Known Allergies Allergy Verified 08/19/18 16:37 Review of Systems ROS Statement: Those systems with pertinent positive or pertinent negative responses have been documented in the HPI. ROS Other: All systems not noted in ROS Statement are negative. Past Medical History Past Medical History: Coronary Artery Disease (CAD), Cancer, Diabetes Mellitus, Hyperlipidemia, Hypertension Additional Past Medical History / Comment(s): , chronic diarrhea since sleeve surgery in 2012, KIDNEY CANCER History of Any Multi-Drug Resistant Organisms: None Reported Past Surgical History: Appendectomy, Coronary Bypass/CABG, Joint Replacement, Orthopedic Surgery Additional Past Surgical History / Comment(s): lt kidney removed, BILAT TKA,guerda shoulders scoped,LAP-BAND,Gastric sleeve conversion,bowel adhesions removed, COLONOSCOPY, EGD Past Anesthesia/Blood Transfusion Reactions: No Reported Reaction Past Psychological History: Bipolar, Depression, Schizoaffective Disorder Smoking Status: Former smoker - Past Family History Mother Family Medical History: Cancer Additional Family Medical History / Comment(s): at age 66 from Breast Cancer Father Additional Family Medical History / Comment(s): at age 76 from emphysema General Exam - General Exam Comments Initial Comments: General: The patient is awake and alert, in no distress, and does not appear acutely ill. Eye: +3 mm pupils are equal, round and reactive to light, extra-ocular movements are intact. No nystagmus. There is normal conjunctiva bilaterally. No signs of icterus. Ears, nose, mouth and throat: There are moist mucous membranes and no oral lesions. Neck: The neck is supple, there is no tenderness or JVD. Cardiovascular: There is a regular rate and rhythm. No murmur, rub or gallop is appreciated. Respiratory: Lungs are clear to auscultation, respirations are non-labored, breath sounds are equal. No wheezes, stridor, rales, or rhonchi. Gastrointestinal: Soft, non-distended, non-tender abdomen without masses or organomegaly noted. There is no rebound or guarding present. No CVA tenderness. Bowel sounds are unremarkable. Musculoskeletal: Inspection of the lumbar spine, there is none erythematous linear vertical scars paravertebral lumbar spine. No surrounding erythema or tenderness to palpation. Just superior to the incisions there is mild soft tissue tenderness of the paravertebral muscles. No midline tenderness to palpation. Normal ROM of the thoracic and lumbar spine as well as the lower extremities. Patient does admit to a tenderness of the lumbar spine with both for flexion and hyperextension. Strength 5/5 of the lower extremities equally bilaterally. Sensation intact of the lower extremities equally bilaterally. DP pulses equal bilaterally 2+. +2/5 DTR of the patellar and Achilles. No mild closer fasciculations. No noted muscle wasting. She is able to heel and toe walk without difficulty. Patient is ambulating without any signs of discomfort. Neurological: A&O x 3. CN II-XII intact, There are no obvious motor or sensory deficits. Coordination appears grossly intact. Speech is normal. Skin: Skin is warm and dry and no rashes or lesions are noted. Psychiatric: Cooperative, appropriate mood & affect, normal judgment. Limitations: no limitations Course Vital Signs 08/19/18 08/19/18 16:35 18:17 Temperature 97.5 F L 98.8 F Pulse Rate 89 61 Respiratory 18 18 Rate Blood Pressure 159/93 154/71 O2 Sat by Pulse 97 98 Oximetry Medical Decision Making - Medical Decision Making 57-year-old presenting for low back pain. There are no red flags upon history and exam. Given patient's recent surgical status I did obtain plain radiographs revealing no acute process. Patient has no signs concerning for cauda equina. Patient appears well. Patient was given home medication of norco in the emergency department as well as muscle relaxer. Patient will be discharged with a prescription for Flexeril for muscle strain, as most the patient's tenderness is paravertebral, there is no history of trauma, history is more concerning for low back strain. Pt will be discharged with instruction to follow-up with surgeon Dr. Patel and primary care provider in the next 2-3 days. Patient is agreeable plan discharge. Patient is instructed to continue outpatient medication as prescribed and use Flexeril at night for muscle spasm. He was given return parameters which were discussed at length, patient verbalizes understanding. I discussed the case with attending provider Dr. Harris who agreed the impression and plan. Disposition Clinical Impression: Low back strain Disposition: HOME SELF-CARE Condition: Good Instructions (If sedation given, give patient instructions): Low Back Strain ( ED) Additional Instructions: Please use previously prescribed home medication as discussed. Please follow- up with family doctor in the next 2 days. Please follow-up with Dr. Patel in the next 2-3 days. Please return to emergency room if the symptoms increase or worsen or for any other concerns, fever, loss of bowel or bladder control, urinary retention. Prescriptions: Cyclobenzaprine [Flexeril] 10 mg PO HS 4 Days #4 tab Is patient prescribed a controlled substance at d/c from ED?: No Referrals: Luciano Shukla MD [Primary Care Provider] - 1-2 days Jose A Patel DO [Family Provider] - 1-2 days Time of Disposition: 18:09
[2018-08-19 18:19] VITALS: BP 154/71; PULSE 61; TEMP 98.8
== END 2018-08-19 18:20 | disposition home or self-care (01) ==
LOC: EC 16:13
DX: S39.012A Strain of muscle, fascia and tendon of lower back, initial encounter (principal); I25.10 Atherosclerotic heart disease of native coronary artery without angina pectoris; E11.9 Type 2 diabetes mellitus without complications; E78.5 Hyperlipidemia, unspecified; I10 Essential (primary) hypertension; F31.9 Bipolar disorder, unspecified; F25.9 Schizoaffective disorder, unspecified; Z85.528 Personal history of other malignant neoplasm of kidney; Z87.891 Personal history of nicotine dependence; Z79.82 Long term (current) use of aspirin; Z79.84 Long term (current) use of oral hypoglycemic drugs; Z79.891 Long term (current) use of opiate analgesic; Z79.899 Other long term (current) drug therapy; Z95.1 Presence of aortocoronary bypass graft; Z96.653 Presence of artificial knee joint, bilateral
CPT/HCPCS: 72100; 76770; 99283

== ENCOUNTER → 2018-08-19 | Outpatient (CLI) | payer MEDICARE, OTHER ==
--- NOTE | 2018-08-19 17:02 | US ---
EXAMINATION TYPE: US kidneys/renal and bladder DATE OF EXAM: 08/19/2018 COMPARISON: Correlation CT 06/26/2017 CLINICAL HISTORY: 57-year-old male N18.2 kidney disease stage 2. CKD stage 2, history of kidney stone s, left kidney removed. TECHNIQUE: Multiple sonographic images of the kidneys and bladder are obtained. FINDINGS: EXAM MEASUREMENTS: Right Kidney: 11.9 x 5.9 x 5.5 cm Left Kidney: surgically absent Right Kidney: Mild pelviectasis. No calyceal dilatation to suggest hydronephrosis. Left Kidney: surgically absent Bladder: No gross abnormality of the urine distended bladder. Neither ureteral jet is seen. IMPRESSION: 1. Left kidney not visualized. Patient's history indicates surgical absence. 2. Mild right-sided pelviectasis, likely transient. No calyceal dilatation to suggest olvin hydroneph rosis.
== END | disposition home or self-care (01) ==
LOC: RADUSWWP 15:25
PROVIDERS: ATTEND Internal Medicine
DX: N28.89 Other specified disorders of kidney and ureter (principal); N18.2 Chronic kidney disease, stage 2 (mild)
CPT/HCPCS: 76770

== ENCOUNTER 2018-08-24 10:03 | Emergency (ER) | payer MEDICARE, OTHER ==
[2018-08-24 10:08] VITALS: BP 166/100; PULSE 89; RESP 18; TEMP 98.6
[2018-08-24] MEDS ORDERED: HYDROcodone/APAP 10-325MG 1 EACH TAB PO ONE (11:30)
--- NOTE | 2018-08-24 11:30 | CT ---
EXAMINATION TYPE: CT lumbar spine wo con DATE OF EXAM: 08/24/2018 11:19 AM COMPARISON: Previous study dated 03/25/2018. HISTORY: Low back pain. Patient is ~1 month post op. No known injury. CT DLP: 1736 mGycm Automated exposure control for dose reduction was used. Unenhanced CT of the lumbar spine was performed. Bone and soft tissue window settings are submitted as well as coronal and sagittal reconstructions. FINDINGS: Visualized portions of the lungs are clear. There is atheromatous calcification of the visualized arterial tree. Paraspinal structures are otherw ise unremarkable. There has been a previous interpedicular fusion with spacing placement at L5-S1. The previously descr ibed central and right paracentral disc endplate complex has been markedly reduced. Vertebral body height and alignment are maintained there is no spondylolysis or spondylolisthesis. At T12-L1, there is mild disc space loss. Intervertebral foramina appear well maintained. There is no significant compressive discopathy. There is mild hypertrophic change in the facets. L1-L2: There is mild disc space loss and hypertrophic spondylosis anteriorly. Intervertebral foramina appear well maintained. There is no significant compressive discopathy. There is mild hypertrophic c hange in the facets. L2-L3: The intervertebral foramina are well maintained. There is a diffuse disc displacement. This hy pertrophic change in the facets. L3-L4: There is mild disc space loss and hypertrophic spondylosis anteriorly. The intervertebral fora martínez appear well maintained. There is a diffuse disc displacement. This hypertrophic changes in the f acets. There is mild to moderate central canal stenosis. L4-L5: The intervertebral foramina appear well maintained. There is a diffuse disc displacement. Ther e is streak artifact from interpedicular fusion. L5-S1: There is significant streak artifact through this level. IMPRESSION: 1. POSTSURGICAL CHANGE. 2. DIFFUSE DEGENERATIVE DISC DISEASE, HYPERTROPHIC SPONDYLOSIS AND FACET ARTHROPATHY. 3. MILD TO MODERATE CENTRAL CANAL COMPROMISE, L3-4.
--- NOTE | 2018-08-24 11:54 | ED ---
Back Pain HPI - General Chief Complaint: Back Pain/Injury Stated Complaint: back pain Time Seen by Provider: 08/24/18 10:17 Source: patient Limitations: no limitations - History of Present Illness Initial Comments: The patient is a 57-year-old pleasant male who presents with a chief complaint of lower back pain. The patient states that he had a lumbar fusion performed on 07/10/2018, he says it postsurgery she was doing very well until he had an ultrasound of his kidneys performed a few days ago. He states that when he was getting off the table he felt a very intense pain in his back. Currently he describes a sharp throbbing pain that is midline near his surgical incision with radiation laterally to his hips. He denies any bowel or bladder dysfunction, he denies any fever, he is able and related that he states it is painful. He has intact sensation in the lower extremities. The patient states that after the initial pain he had an x-ray of his back that was unremarkable. He was diagnosed with a lumbar strain and discharged home for follow-up. Patient states that he has been using decreased doses of pain medication which were prescribed him postop. - Related Data Home Medications Medication Instructions Recorded Confirmed Atorvastatin [Lipitor] 40 mg PO DAILY 08/07/16 07/10/18 Aspirin EC [Ecotrin Low Dose] 81 mg PO DAILY 08/22/16 07/10/18 QUEtiapine [SEROquel] 400 mg PO HS 03/25/18 07/10/18 metFORMIN HCL [Glucophage] 500 mg PO DAILY 03/25/18 07/10/18 HYDROcodone/APAP 10-325MG [[place] 1 tab PO TID 07/05/18 07/10/18 10-325] Previous Rx's Medication Instructions Recorded HYDROcodone/APAP 10-325MG [[place] 1 tab PO Q6H PRN #42 tab 07/13/18 10-325] Cyclobenzaprine [Flexeril] 10 mg PO HS 4 Days #4 tab 08/19/18 Allergies Allergy/AdvReac Type Severity Reaction Status Date / Time No Known Allergies Allergy Verified 08/24/18 10:08 Review of Systems ROS Statement: Those systems with pertinent positive or pertinent negative responses have been documented in the HPI. ROS Other: All systems not noted in ROS Statement are negative. Musculoskeletal: Reports: back pain Past Medical History Past Medical History: Coronary Artery Disease (CAD), Cancer, Diabetes Mellitus, Hyperlipidemia, Hypertension Additional Past Medical History / Comment(s): , chronic diarrhea since sleeve surgery in 2013, KIDNEY CANCER History of Any Multi-Drug Resistant Organisms: None Reported Past Surgical History: Appendectomy, Coronary Bypass/CABG, Joint Replacement, Orthopedic Surgery Additional Past Surgical History / Comment(s): lt kidney removed, BILAT TKA,guerda shoulders scoped,LAP-BAND,Gastric sleeve conversion,bowel adhesions removed, COLONOSCOPY, EGD Past Anesthesia/Blood Transfusion Reactions: No Reported Reaction Past Psychological History: Bipolar, Depression, Schizoaffective Disorder Smoking Status: Former smoker Past Alcohol Use History: None Reported Past Drug Use History: None Reported - Past Family History Mother Family Medical History: Cancer Additional Family Medical History / Comment(s): at age 66 from Breast Cancer Father Additional Family Medical History / Comment(s): at age 76 from emphysema General Exam Limitations: no limitations General appearance: alert, in no apparent distress Head exam: Present: atraumatic, normocephalic Eye exam: Present: normal appearance, PERRL ( ) ENT exam: Present: normal exam Neck exam: Present: normal inspection Respiratory exam: Present: normal lung sounds bilaterally. Absent: respiratory distress, wheezes Cardiovascular Exam: Present: regular rate, normal rhythm, normal heart sounds. Absent: systolic murmur, diastolic murmur, rubs, gallop, clicks GI/Abdominal exam: Present: soft. Absent: distended, tenderness Rectal exam: Present: deferred Extremities exam: Present: normal inspection Back exam: Present: paraspinal tenderness, vertebral tenderness, other ( surgical incision is well healed and intact without surrounding erythema or fluctuance. no signs of infection. ) Neurological exam: Present: alert, oriented X3, CN II-XII intact, normal gait, reflexes normal, other. Absent: motor sensory deficit (patient able to ambulate without assistance, NV intact, no signs of bowel or bladder incontinence ) Psychiatric exam: Present: normal affect, normal mood Skin exam: Present: warm, dry, intact Course Vital Signs 08/24/18 10:07 Temperature 98.6 F Pulse Rate 89 Respiratory 18 Rate Blood Pressure 166/100 O2 Sat by Pulse 96 Oximetry Medical Decision Making - Medical Decision Making The presents with chief complaint of lower back pain for about 3 days. His history of a lumbar fusion last month which he states he was recovering very well from until he strained his back after an ultrasound. On initial evaluation , vital signs are stable, patient is in no acute distress. He appears well- nourished, well-developed, nontoxic. Patient is afebrile and does not report any fevers, he is able to relate without assistance, strength and sensation is intact bilaterally, and he denies any bowel or bladder incontinence. Highly doubt spinal cord pathology at this point. Patient had x-rays today of increased pain that were unremarkable. Given that the pain is not improved, patient will be sent for computed tomography scan evaluation of the lumbar spine to assess stability of surgical repair. He was given [place] for pain in the emergency department. We'll evaluate urinalysis given that patient does have bilateral tenderness as well. He'll be reassessed. Urinalysis is unremarkable. Computed tomography scan of the lumbar spine showed stable postoperative changes. Patient was instructed to continue using his [place] at home, with the addition of Motrin. He is instructed to follow-up with his surgeon as soon as possible. Patient discharged stable condition, he was ambulatory on discharge without assistance. Disposition Clinical Impression: Mechanical back pain, Postoperative pain after spinal surgery Disposition: HOME SELF-CARE Condition: Good Instructions (If sedation given, give patient instructions): Acute Low Back Pain (ED) Is patient prescribed a controlled substance at d/c from ED?: No Referrals: Luciano Shukla MD [Primary Care Provider] - 1-2 days
[2018-08-24 22:06] LABS: Mucus,Urine Rare /hpf; RBC,Urine 1 /hpf (0-5); WBC,Urine 1 /hpf (0-5)
[2018-08-24 22:08] LABS: Appearance,Urine Clear (Clear); Bilirubin,Urine Negative (Negative); Blood,Urine Negative (Negative); Color,Urine Light Yellow; Glucose,Urine (UA) Negative (Negative); Ketones,Urine Negative (Negative); Leukocyte Esterase,Urine Negative (Negative); Nitrite,Urine Negative (Negative); PH, Urine 6.5 (5.0-8.0); Protein,Urine 2+ (Negative); Specific Gravity,Urine 1.007 (1.001-1.035); Urobilinogen,Urine <2.0 mg/dL (<2.0)
== END 2018-08-24 13:20 | disposition home or self-care (01) ==
LOC: EC 10:03
DX: G89.18 Other acute postprocedural pain (principal); M54.5 Low back pain; M25.551 Pain in right hip; M25.552 Pain in left hip; E78.5 Hyperlipidemia, unspecified; I10 Essential (primary) hypertension; I25.10 Atherosclerotic heart disease of native coronary artery without angina pectoris; E11.9 Type 2 diabetes mellitus without complications; K52.89 Other specified noninfective gastroenteritis and colitis; F31.9 Bipolar disorder, unspecified; Z98.1 Arthrodesis status; Z87.891 Personal history of nicotine dependence; Z79.82 Long term (current) use of aspirin; Z79.84 Long term (current) use of oral hypoglycemic drugs; Z79.891 Long term (current) use of opiate analgesic; Z79.899 Other long term (current) drug therapy; Z85.528 Personal history of other malignant neoplasm of kidney; Z90.5 Acquired absence of kidney; Z95.1 Presence of aortocoronary bypass graft; Z98.84 Bariatric surgery status; Z96.653 Presence of artificial knee joint, bilateral
CPT/HCPCS: 72131; 81001; 99284

== ENCOUNTER → 2018-09-27 | Outpatient (CLI) | payer MEDICARE, OTHER ==
--- NOTE | 2018-09-27 19:04 | ECHOF ---
Referral Reason:I25.10 CAD MEASUREMENTS -------- HEIGHT: 180.3 cm WEIGHT: 106.6 kg BP: RVIDd: 3.3 cm (< 3.3) IVSd: 1.2 cm (0.6 - 1.1) LVIDd: 3.5 cm (3.9 - 5.3) LVPWd: 1.3 cm (0.6 - 1.1) IVSs: 1.7 cm LVIDs: 1.9 cm LVPWs: 1.9 cm Ao Diam: 3.0 cm (2.0 - 3.7) AV Cusp: 2.0 cm (1.5 - 2.6) LA Diam: 4.0 cm (2.7 - 3.8) MV EXCURSION: 20.477 mm (> 18.000) MV EF SLOPE: 95 mm/s (70 - 150) EPSS: 0.8 cm MV E Jovany: 0.79 m/s MV DecT: 190 ms MV A Jovany: 0.69 m/s MV E/A Ratio: 1.15 RAP: 5.00 mmHg RVSP: 11.07 mmHg FINDINGS -------- Sinus rhythm. This was a technically difficult study with suboptimal views. The left ventricular size is normal. There is mild concentric left ventricular hypertrophy. Overa ll left ventricular systolic function is normal with, an EF between 55 - 60 %. There is paradoxical /dysynergic septal motion consistent with post-operative status. The right ventricle is mildly enlarged. The left atrial size is normal. The right atrium is normal in size. Lumason used The aortic valve is trileaflet and appears structurally normal. There is trace mitral regurgitation. Trace tricuspid regurgitation present. The right ventricular systolic pressure, as measured by Dopp ler, is 11.07mmHg. Pulmonic valve appears structurally normal. The aortic root size is normal. IVC Not well visulized. The pericardium is normal. CONCLUSIONS -------- 1. Sinus rhythm. 2. This was a technically difficult study with suboptimal views. 3. The left ventricular size is normal. 4. There is mild concentric left ventricular hypertrophy. 5. Overall left ventricular systolic function is normal with, an EF between 55 - 60 %. 6. There is paradoxical/dysynergic septal motion consistent with post-operative status. 7. The right ventricle is mildly enlarged. 8. The left atrial size is normal. 9. The right atrium is normal in size. 10. Lumason used 11. The aortic valve is trileaflet and appears structurally normal. 12. There is trace mitral regurgitation. 13. Trace tricuspid regurgitation present. 14. The right ventricular systolic pressure, as measured by Doppler, is 11.07mmHg. 15. Pulmonic valve appears structurally normal. 16. The aortic root size is normal. 17. IVC Not well visulized. 18. The pericardium is normal. [employer]: Neida Mendoza RDCS
== END | disposition home or self-care (01) ==
LOC: RADECHMAIN 08:06
PROVIDERS: ATTEND Internal Medicine
DX: I51.7 Cardiomegaly (principal); I25.10 Atherosclerotic heart disease of native coronary artery without angina pectoris
CPT/HCPCS: C8929; Q9950; 93306

== ENCOUNTER → 2020-05-17 | Outpatient (CLI) | payer MEDICARE, OTHER ==
[2020-05-17 14:10] VITALS: BP 163/91; PULSE 67; RESP 18; TEMP 98; BMI 29.2
--- NOTE | 2020-05-17 14:26 | P.HPBAR ---
Bariatric H&P - History & Physicial H&P Date: 05/17/20 History & Physicial: Visit/CC: sleeve f/u; poss antnorma Patient initial contact: Initial weight: 99.025 kg Initial weight in pounds: 218.31 Height: 5 ft 10 in Initial BMI: 31.3 Last weight: Current weight: 92.533 kg Current weight in pounds: 204.00 Current BMI: 29.2 [place] body weight (based on NIH guidelines): 75.296 kg Excess body weight loss: 27.3% The patient is a 59 year-old M who presents for Bariatric Assessment. Patient presents today for sleeve gastrectomy follow-up. He has lost in excess of 100 pounds. He has a well-formed panniculus. His had some mild GERD. Past Medical History Past Medical History: Blood Disorder, Coronary Artery Disease (CAD), Cancer, Diabetes Mellitus, Hyperlipidemia, Hypertension Additional Past Medical History / Comment(s): , chronic diarrhea since sleeve surgery in 2012, KIDNEY CANCER. IRON DEFICIENCY ANEMIA. History of Any Multi-Drug Resistant Organisms: None Reported Past Surgical History: Appendectomy, Bariatric Surgery, Coronary Bypass/CABG, Joint Replacement, Orthopedic Surgery Additional Past Surgical History / Comment(s): lt kidney removed, BILAT TKA,guerda shoulders scoped,LAP-BAND,Gastric sleeve conversion,bowel adhesions removed, COLONOSCOPY, EGD; spinal fusion June 2018 Past Anesthesia/Blood Transfusion Reactions: No Reported Reaction Past Psychological History: Bipolar, Depression, Schizoaffective Disorder Additional Psychological History / Comment(s): antisocial disorder Smoking Status: Former smoker Past Alcohol Use History: None Reported Additional Past Alcohol Use History / Comment(s): smoked for 27 years, quit in 2001 Past Drug Use History: None Reported - Past Family History Mother Family Medical History: Cancer Additional Family Medical History / Comment(s): at age 66 from Breast Cancer Father Additional Family Medical History / Comment(s): at age 76 from emphysema Surgical - Exam Vital Signs Temp Pulse Resp BP 98.0 F 67 18 163/91 05/17/20 14:00 05/17/20 14:00 05/17/20 14:00 05/17/20 14:00 - General well developed, well nourished, no distress - Eyes PERRL - ENT normal pinna - Neck no masses - Respiratory normal expansion - Cardiovascular Rhythm: regular - Abdomen Well-formed panniculus. Abdomen: soft, non tender Bariatric Assessment & Plan Plan: Panniculus. Patient has a good understanding of panniculus. We went over the risks and benefits of procedure. He realizes this is not a cosmetic procedure: For procedure remove redundant skin and fat. Patient.gerd is minimal will be observed. Patient will be authorized for panniculus. He will follow-up in one month. Bariatric Checklist Checklist: Plan: Checklist: EGD: 1. Hiatal hernia: 2. H. Pylori: HgbA1c: Vitamin D: Smoking: Former smoker Primary care physician referral: FADY Psychiatry clearance: Cardiology clearance: Sleep study: Diet journal: VTE risk score: VTE risk level: Rehab needs at discharge:
== END | disposition home or self-care (01) ==
LOC: BARWHC3 13:55
PROVIDERS: ATTEND Surgery
DX: Z48.815 Encounter for surgical aftercare following surgery on the digestive system (principal); Z87.891 Personal history of nicotine dependence; Z98.84 Bariatric surgery status; Z90.89 Acquired absence of other organs
CPT/HCPCS: 99211

== ENCOUNTER → 2020-06-14 | Outpatient (CLI) | payer MEDICARE, OTHER ==
[2020-06-14 14:02] VITALS: BP 138/64; PULSE 58; RESP 16; TEMP 98.4; BMI 28.7
--- NOTE | 2020-06-14 14:14 | P.HPBAR ---
Bariatric H&P - History & Physicial H&P Date: 06/14/20 History & Physicial: Visit/CC: working jay Patient initial contact: Initial weight: 99.025 kg Initial weight in pounds: 218.31 Height: 5 ft 10 in Initial BMI: 31.3 Last weight: Current weight: 90.718 kg Current weight in pounds: 200.00 Current BMI: 28.7 [place] body weight (based on NIH guidelines): 75.296 kg Excess body weight loss: 35.0% The patient is a 59 year-old M who presents for Bariatric Assessment. Patient presents today for sleeve gastrectomy follow-up. He is currently going on her authorization for panniculectomy. He's had some minimal GERD. He is has issues with chronic skin irritation related to his pannus. Past Medical History Past Medical History: Blood Disorder, Coronary Artery Disease (CAD), Cancer, Diabetes Mellitus, Hyperlipidemia, Hypertension Additional Past Medical History / Comment(s): , chronic diarrhea since sleeve surgery in 2012, KIDNEY CANCER. IRON DEFICIENCY ANEMIA. History of Any Multi-Drug Resistant Organisms: None Reported Past Surgical History: Appendectomy, Bariatric Surgery, Coronary Bypass/CABG, Joint Replacement, Orthopedic Surgery Additional Past Surgical History / Comment(s): lt kidney removed, BILAT TKA,guerda shoulders scoped,LAP-BAND,Gastric sleeve conversion,bowel adhesions removed, COLONOSCOPY, EGD; spinal fusion June 2018 Past Anesthesia/Blood Transfusion Reactions: No Reported Reaction Smoking Status: Former smoker - Past Family History Mother Family Medical History: Cancer Additional Family Medical History / Comment(s): at age 66 from Breast Cancer Father Additional Family Medical History / Comment(s): at age 76 from emphysema Surgical - Exam Vital Signs Temp Pulse Resp BP 98.4 F 58 L 16 138/64 06/14/20 14:00 06/14/20 14:00 06/14/20 14:00 06/14/20 14:00 - General well developed, well nourished, no distress - Eyes PERRL - ENT normal pinna - Neck no masses - Respiratory normal expansion - Abdomen Large pannus with evidence of chronic skin irritation Abdomen: soft, non tender Bariatric Assessment & Plan Plan: Status post sleeve gastrectomy. Patient was partially 130 pounds. His GERD is minimal obesity observed. Patient will undergo particularly once his insurance authorization is complete. Bariatric Checklist Checklist: Plan: Checklist: EGD: 1. Hiatal hernia: 2. H. Pylori: HgbA1c: Vitamin D: Smoking: Former smoker Primary care physician referral: FADY Psychiatry clearance: Cardiology clearance: Sleep study: Diet journal: VTE risk score: VTE risk level: Rehab needs at discharge:
== END | disposition home or self-care (01) ==
LOC: BARWHC3 13:32
PROVIDERS: ATTEND Surgery
DX: Z48.815 Encounter for surgical aftercare following surgery on the digestive system (principal); E66.9 Obesity, unspecified; Z68.28 Body mass index [BMI] 28.0-28.9, adult; K21.9 Gastro-esophageal reflux disease without esophagitis; Z98.84 Bariatric surgery status
CPT/HCPCS: 99211

== ENCOUNTER → 2020-07-12 | Outpatient (CLI) | payer MEDICARE, OTHER ==
[2020-07-12 15:30] VITALS: BP 144/84; PULSE 60; TEMP 98.2; BMI 28.5
--- NOTE | 2020-07-12 15:47 | P.HPBAR ---
Bariatric H&P - History & Physicial H&P Date: 07/12/20 History & Physicial: Visit/CC: discuss panniculectomy Patient initial contact: Initial weight: 99.025 kg Initial weight in pounds: 218.31 Height: 5 ft 10 in Initial BMI: 31.3 Last weight: Current weight: 90.265 kg Current weight in pounds: 199.00 Current BMI: 28.5 [place] body weight (based on NIH guidelines): 75.296 kg Excess body weight loss: 36.9% The patient is a 59 year-old M who presents for Bariatric Assessment. Patient presents today for sleeve gastrectomy fall. He has developed a well-formed panniculus after weight loss. His current BMI is 29. 2 issues chronic skin irritation's. Past Medical History Past Medical History: Blood Disorder, Coronary Artery Disease (CAD), Cancer, Diabetes Mellitus, Hyperlipidemia, Hypertension Additional Past Medical History / Comment(s): , chronic diarrhea since sleeve surgery in 2012, KIDNEY CANCER. IRON DEFICIENCY ANEMIA. History of Any Multi-Drug Resistant Organisms: None Reported Past Surgical History: Appendectomy, Bariatric Surgery, Coronary Bypass/CABG, Joint Replacement, Orthopedic Surgery Additional Past Surgical History / Comment(s): lt kidney removed, BILAT TKA,guerda shoulders scoped,LAP-BAND,Gastric sleeve conversion,bowel adhesions removed, COLONOSCOPY, EGD; spinal fusion June 2018 Past Anesthesia/Blood Transfusion Reactions: No Reported Reaction Smoking Status: Former smoker - Past Family History Mother Family Medical History: Cancer Additional Family Medical History / Comment(s): at age 66 from Breast Cancer Father Additional Family Medical History / Comment(s): at age 76 from emphysema Surgical - Exam Vital Signs Temp Pulse BP 98.2 F 60 144/84 07/12/20 15:27 07/12/20 15:27 07/12/20 15:27 - General well developed, well nourished, no distress - Eyes PERRL - ENT normal pinna - Neck no masses - Respiratory normal expansion - Cardiovascular Rhythm: regular - Abdomen Well-formed panniculus. There is evidence of chronic skin irritation. Abdomen: soft, non tender Bariatric Assessment & Plan Plan: Panniculus. Patient be scheduled for panniculectomy once his insurance authorization requirements have been met. Bariatric Checklist Checklist: Plan: Checklist: EGD: 1. Hiatal hernia: 2. H. Pylori: HgbA1c: Vitamin D: Smoking: Former smoker Primary care physician referral: FADY Psychiatry clearance: Cardiology clearance: Sleep study: Diet journal: VTE risk score: VTE risk level: Rehab needs at discharge:
== END | disposition home or self-care (01) ==
LOC: BARWHC3 13:17
PROVIDERS: ATTEND Surgery
DX: Z48.815 Encounter for surgical aftercare following surgery on the digestive system (principal); Z98.84 Bariatric surgery status
CPT/HCPCS: 99211

== ENCOUNTER → 2020-08-09 | Outpatient (CLI) | payer MEDICARE, OTHER ==
[2020-08-09 11:54] LABS: Basophils # (A) 0.1 k/uL (0-0.2); Basophils % (A) 1 %; Eosinophils # (A) 0.3 k/uL (0-0.7); Eosinophils % (A) 6 %; HCT 43.7 % (39.0-53.0); Lymphocytes # (A) 1.5 k/uL (1.0-4.8); Lymphocytes % (A) 29 %; MCH 30.9 pg (25.0-35.0); MCV 96.4 fL (80.0-100.0); Mean Platelet Volume 6.6; Monocytes # (A) 0.2 k/uL (0-1.0); Monocytes % (A) 4 %; Neutrophils # (A) 2.8 k/uL (1.3-7.7); Neutrophils % (A) 56 %; Platelet Count 174 k/uL (150-450); RBC 4.53 m/uL (4.30-5.90); RDW 13.2 % (11.5-15.5)
[2020-08-09 12:20] LABS: Albumin 4.3 g/dL (3.5-5.0); Calcium 9.3 mg/dL (8.4-10.2); Potassium 4.4 mmol/L (3.5-5.1); Total Bilirubin 0.8 mg/dL (0.2-1.3); Total Protein 7.2 g/dL (6.3-8.2)
== END | disposition home or self-care (01) ==
LOC: LABPAT 09:05
PROVIDERS: ATTEND Surgery
DX: Z01.818 Encounter for other preprocedural examination (principal)
CPT/HCPCS: 36415; 80053; 85025; 93005

== ENCOUNTER 2020-09-06 06:48 | Observation (INO) | payer MEDICARE, OTHER ==
[2020-08-31 11:07] VITALS: BMI 28.3
[~2020-09-06 06:48] MED LIST changes: -BACITRACIN 50,000 UNIT, POLYMYXIN B 500,000 UNIT in SODIUM CHLORIDE 0.9% IRRIGATIO 1,00... IRRIGATION ONE; +DEXAMETHASONE SOD PHOSPHATE 4 MG/ML 1 ML VIAL IV ONE; -LIDOCAINE 1% 20 ML VIAL (10MG/ML) FOR IV START INTRADERMA PRN; -ONDANSETRON 4 MG/2 ML VIAL IVP ONE; -ceFAZolin IN SWFI 2 GM/20 ML SYRINGE IVP ONE
[2020-09-06] MEDS ORDERED: HEPARIN SODIUM,PORCINE 5,000 UNIT/ML 1 ML VIAL ONE (07:12)
[2020-09-06] MEDS ORDERED: MIDAZOLAM 2 MG/2 ML VIAL IV ONE (07:30)
[2020-09-06] MEDS ORDERED: LIDOCAINE 1% (10MG/ML) FOR IV START INTRADERMA ONE (07:30)
[2020-09-06] MEDS: LACTATED RINGERS 1,000 ML IV SCH (07:33)
[2020-09-06] MEDS: ONDANSETRON 4 MG/2 ML VIAL IVP ONE ×2 (07:33→11:05)
[2020-09-06 07:44] LABS: Glucose,Whole Blood 77 mg/dL (75-99)
[2020-09-06] MEDS ORDERED: HEPARIN SODIUM,PORCINE 5,000 UNIT/ML 1 ML VIAL SQ ONE (07:49)
[2020-09-06] MEDS ORDERED: DEXTROSE 50% SYRINGE 50 ML IVP ONE (07:56)
--- NOTE | 2020-09-06 08:55 | P.GSHP ---
History of Present Illness H&P Date: 09/06/20 Chief Complaint: Panniculus This a 59-year-old male who is loss in excess 40 pounds. Patient presents today for panniculus. He's had trouble with panniculitis and chronic skin infections. Past Medical History Past Medical History: Blood Disorder, Coronary Artery Disease (CAD), Cancer, Diabetes Mellitus, GERD/Reflux, Hyperlipidemia, Hypertension Additional Past Medical History / Comment(s): hx. KIDNEY CANCER, iron deficiency anemia, states no longer considered diabetic since weight loss-no further meds & hgba1c is normal per pt, states recent stress normal History of Any Multi-Drug Resistant Organisms: None Reported Past Surgical History: Appendectomy, Bariatric Surgery, Coronary Bypass/CABG, Joint Replacement, Orthopedic Surgery Additional Past Surgical History / Comment(s): quad. bypass 1998, lt kidney removed, BILAT TKA,guerda shoulders scoped,LAP-BAND,Gastric sleeve conversion,bowel adhesions removed, COLONOSCOPY, EGD; spinal fusion June 2018 Past Anesthesia/Blood Transfusion Reactions: No Reported Reaction Smoking Status: Former smoker - Past Family History Mother Family Medical History: Cancer Additional Family Medical History / Comment(s): at age 66 from Breast Cancer Father Additional Family Medical History / Comment(s): at age 76 from emphysema Medications and Allergies Home Medications Medication Instructions Recorded Confirmed Type Aspirin [Adult Low Dose Aspirin EC] 81 mg PO DAILY 05/17/20 09/06/20 History Calcium Carbonate [Calcium] 600 mg PO DAILY 05/17/20 09/06/20 History Cholecalciferol [Vitamin D3 (25 2,000 unit PO DAILY 05/17/20 09/06/20 History Mcg = 1000 Iu)] HYDROcodone/APAP 10-325MG [[place] 1 tab PO Q6HR PRN 05/17/20 09/06/20 History 10-325] Iron 65 mg PO DAILY 05/17/20 09/06/20 History Magnesium 400 mg PO DAILY 05/17/20 09/06/20 History Omeprazole 20 mg PO DAILY 05/17/20 09/06/20 History QUEtiapine FUMARATE [SEROquel] 400 mg PO HS 05/17/20 09/06/20 History Atorvastatin [Lipitor] 40 mg PO DAILY 08/31/20 09/06/20 History Metoprolol Succinate (ER) [Toprol 25 mg PO DAILY 08/31/20 09/06/20 History Xl] Allergies Allergy/AdvReac Type Severity Reaction Status Date / Time No Known Allergies Allergy Verified 09/06/20 07:16 Surgical - Exam Vital Signs Temp Pulse Resp BP Pulse Ox 97.3 F L 62 18 127/66 97 09/06/20 07:18 09/06/20 07:18 09/06/20 07:18 09/06/20 07:18 09/06/20 07:18 - General well developed, well nourished, no distress - Eyes PERRL - ENT normal pinna - Neck no masses - Respiratory normal expansion - Cardiovascular Rhythm: regular - Abdomen Panniculus with chronic skin infections Abdomen: soft, non tender Assessment and Plan Assessment: Panniculus was evidence of chronic skin infections. Patient will undergo panniculus. He is aware the stenotic cosmetic procedure for procedure Grace on skin and fat.
[2020-09-06] MEDS ORDERED: GLYCOPYRROLATE 0.2 MG/ML 2 ML VIAL ONE (09:03)
[2020-09-06] MEDS ORDERED: ROCURONIUM 10 MG/ML (10 ML VIAL) IV ONE (09:03)
[2020-09-06] MEDS ORDERED: fentaNYL (PF) 50 MCG/ML 2 ML AMP ONE (09:03)
[2020-09-06] MEDS ORDERED: PROPOFOL 10 MG/ML 20 ML VIAL IV ONE (09:03)
[2020-09-06] MEDS ORDERED: SUCCINYLCHOLINE CHLORIDE 100 MG/5 ML SYR IV ONE (09:03)
[2020-09-06] MEDS ORDERED: PHENYLEPHRINE-0.9% NACL SYG 1,000 MCG/10 ML SYRINGE ONE (09:03)
[2020-09-06] MEDS ORDERED: ePHEDrine SULFATE/0.9% NACL/PF 50 MG/5 ML SYRINGE IV ONE (09:03)
[2020-09-06] MEDS ORDERED: LIDOCAINE 1% INJ 10MG/ML (20 ML MDV) ONE (09:03)
[2020-09-06] MEDS ORDERED: NEOSTIGMINE 1 MG/ML 10 ML VIAL ONE (09:03)
[2020-09-06] MEDS ORDERED: MIDAZOLAM 2 MG/2 ML VIAL ONE (09:03)
[2020-09-06] MEDS: HYDROmorphone 0.5 MG/0.5 ML SYRINGE IVP PRN ×7 (11:05→20:22)
[2020-09-06] MEDS ORDERED: ONDANSETRON 4 MG/2 ML VIAL IVP PRN ×2 (11:07)
[2020-09-06] MEDS ORDERED: LACTATED RINGERS 1,000 ML IV ONE (11:07)
[2020-09-06] MEDS ORDERED: HYDROmorphone 1 MG/ML 1 ML SYRINGE IVP PRN (11:07)
[2020-09-06] MEDS ORDERED: NALOXONE 0.4 MG/ML 1 ML VIAL IV PRN (11:07)
--- NOTE | 2020-09-06 11:07 | P.OP ---
Date of Procedure: 09/06/20 Preoperative Diagnosis: Panniculus Postoperative Diagnosis: Panniculus Procedure(s) Performed: Panniculectomy Repair of incisional hernia Anesthesia: REUBEN Surgeon: Giovanny Martinez Estimated Blood Loss (ml): 100 Pathology: other (Skin) Condition: stable Disposition: PACU Description of Procedure: Patient's placed on the operating table in the supine position. She received general anesthesia. His abdomen was prepped and draped usual fashion. The umbilicus was dissected free. And then the skin incision was made at the suprapubic area. The skin incision was extended from hip to hip. Electrocautery the subcutaneous tissue divided. And then the symptoms as were divided off of the fascia to the level of the xiphoid superiorly the costal margins laterally small incisional hernia related to previous trocar site. This was closed with 0 Vicryl suture. And #1 strep to fix suture. The redundant skin was then marked and then incised and sent to pathology.. Skin measuring approximately 5 pounds. The umbilicus was examined. Due the patient's previous history of laparotomies the umbilicus stalk was not connected to the fascia. At this point the umbilicus was dissected free and discarded. The fascia was plicated in the midline using #1 strep to fix suture. 2 LUKE drains were placed through separate stab incision and brought out through the pubic area. This secured with 2-0 nylon. Jude's fascia close [place]. Skin was closed running 3-0 Monocryl suture. Dermabond dressing was applied. Patient top she will was sent to recovery room stable condition.
[2020-09-06 11:21] LABS: Glucose,Whole Blood 96 mg/dL (75-99)
[2020-09-06] MEDS: KETOROLAC 15 MG/ML 1 ML VIAL IVP SCH ×2 (11:25→17:41)
[2020-09-06] MEDS: PANTOPRAZOLE 40 MG TABLET PO SCH (14:56)
[2020-09-06] MEDS: METOPROLOL SUCCINATE (ER) 25 MG TAB.ER.24H PO SCH (14:56)
--- NOTE | 2020-09-06 20:07 | P.CONS ---
History of Present Illness - Reason for Consult Consult date: 09/06/20 Medical management - Chief Complaint s/p Panniculectomy - History of Present Illness Patient is a 59-year-old male with a known history of coronary disease status CABG in 1998, renal cell cancer status post left nephrectomy, hypertension, diabetes type 2 controlled after bariatric surgery was admitted to the hospital for Panniculectomy. Patient has been having recurrent abdominal infection and panniculitis. Patient tolerated the procedure very well currently surgical site is bandaged. Pain is fairly controlled. No complaints of chest pain or shortness of breath. No nausea vomiting or diarrhea postoperatively blood pressure is on the lower side. Review of Systems Constitutional: Patient denies any fever or chills . No generalized weakness or weight loss. Abdomen: Patient denied nausea vomiting and diarrhea and abdominal pain. Cardiovascular: Patient denies any chest pain or short of breath no palpitations. Respiratory: patient denied any cough or sputum production. No shortness of breath Neurologic: Patient denied any numbness or tingling headache. Musculoskeletal: Patient denies any complaints of joint swelling or deformity. Skin: Negative Psychiatric: Negative Endocrine: No heat or cold intolerance. No recent weight gain. Genitourinary: No dysuria or hematuria. All other 14 point ROS negative except the above Past Medical History Past Medical History: Blood Disorder, Coronary Artery Disease (CAD), Cancer, Diabetes Mellitus, GERD/Reflux, Hyperlipidemia, Hypertension Additional Past Medical History / Comment(s): hx. KIDNEY CANCER, iron deficiency anemia, states no longer considered diabetic since weight loss-no further meds & hgba1c is normal per pt, states recent stress normal History of Any Multi-Drug Resistant Organisms: None Reported Past Surgical History: Appendectomy, Bariatric Surgery, Coronary Bypass/CABG, Joint Replacement, Orthopedic Surgery Additional Past Surgical History / Comment(s): quad. bypass 1998, lt kidney removed, BILAT TKA,guerda shoulders scoped,LAP-BAND,Gastric sleeve conversion,bowel adhesions removed, COLONOSCOPY, EGD; spinal fusion June 2018, Panniculectomy aug 2020. Past Anesthesia/Blood Transfusion Reactions: No Reported Reaction Past Psychological History: Bipolar, Depression, Schizoaffective Disorder Additional Psychological History / Comment(s): antisocial disorder Smoking Status: Former smoker Past Alcohol Use History: None Reported Additional Past Alcohol Use History / Comment(s): smoked for 27 years, quit in 2001 Past Drug Use History: None Reported - Past Family History Mother Family Medical History: Cancer Additional Family Medical History / Comment(s): at age 66 from Breast Cancer Father Additional Family Medical History / Comment(s): at age 76 from emphysema Medications and Allergies Home Medications Medication Instructions Recorded Confirmed Type Aspirin [Adult Low Dose Aspirin EC] 81 mg PO DAILY 05/17/20 09/06/20 History Calcium Carbonate [Calcium] 600 mg PO DAILY 05/17/20 09/06/20 History Cholecalciferol [Vitamin D3 (25 2,000 unit PO DAILY 05/17/20 09/06/20 History Mcg = 1000 Iu)] HYDROcodone/APAP 10-325MG [[place] 1 tab PO Q6HR PRN 05/17/20 09/06/20 History 10-325] Iron 65 mg PO DAILY 05/17/20 09/06/20 History Magnesium 400 mg PO DAILY 05/17/20 09/06/20 History Omeprazole 20 mg PO DAILY 05/17/20 09/06/20 History QUEtiapine FUMARATE [SEROquel] 400 mg PO HS 05/17/20 09/06/20 History Atorvastatin [Lipitor] 40 mg PO DAILY 08/31/20 09/06/20 History Metoprolol Succinate (ER) [Toprol 25 mg PO DAILY 08/31/20 09/06/20 History Xl] Allergies Allergy/AdvReac Type Severity Reaction Status Date / Time No Known Allergies Allergy Verified 09/06/20 07:16 Physical Exam Vitals: Vital Signs Temp Pulse Resp BP Pulse Ox 09/06/20 11:45 60 16 135/78 98 09/06/20 11:30 63 16 142/74 98 09/06/20 11:15 65 16 129/68 96 09/06/20 11:03 98.2 F 67 16 134/70 98 09/06/20 07:18 97.3 F L 62 18 127/66 97 Intake and Output 09/05/20 09/06/20 09/06/20 22:59 06:59 14:59 Intake Total 1050 Output Total 375 Balance 675 Intake: IV 1050 Output: Urine 275 Estimated Blood Loss 100 Other: Weight 92 kg PHYSICAL EXAMINATION: Patient is lying in the bed comfortably, no acute distress, awake alert and oriented.. HEENT: Normocephalic. Neck is supple. Pupils reactive. Nostrils clear. Oral cavity is moist. Ears reveal no drainage. Neck reveals no JVD, carotid bruits, or thyromegaly. CHEST EXAMINATION: Trachea is central. Symmetrical expansion. Lung red clear to auscultation and percussion. CARDIAC: Normal S1, S2 with no gallops. No murmurs ABDOMEN: Soft. Abdominal surgical site is bandaged , Bowel sounds normal. No organomegaly. No abdominal bruits. Extremities: reveal no edema. No clubbing or cyanosis Neurologically awake, alert, oriented x3 with well-coordinated movements. No focal deficits noted Skin: No rash or skin lesions. Psychiatric: Coperative. Nonsuicidal Musculoskeletal: No joint swelling or deformity. Normal range of motion. This patient was cared for during of federal and state declared state [facility] secondary to COVID 19 Assessment and Plan Assessment: Status post Panniculectomy. Postoperative day 0 Recurrent abdominal wall skin infection/folliculitis Hypertension currently slightly hypotensive. Diabetes type 2 history with improvement after bariatric surgery Hyperlipidemia Coronary artery disease status post CABG in 1998 History of renal cell carcinoma History of lap band surgery GERD Bipolar disorder and schizoaffective disorder Previous history of smoking DVT prophylaxis on Lovenox subcu Plan: Patient will be continued pain management, bowel regimen and encourage incentive spirometry. We will continue with metoprolol and hold other blood pressure medications. Gentle IV hydration and continue with home medications. will follow closely and further recommendations based on the clinical course. Follow-up CBC and BMP tomorrow morning. Thank you for your consult.
[2020-09-06] MEDS: DOCUSATE 100 MG CAP PO SCH (20:20)
[2020-09-06] MEDS: QUEtiapine 400 MG TAB PO SCH (20:21)
[2020-09-07] MEDS: KETOROLAC 15 MG/ML 1 ML VIAL IVP SCH ×5 (00:26→23:00)
[2020-09-07] MEDS: LACTATED RINGERS 1,000 ML IV SCH (05:27)
[2020-09-07] MEDS: METOPROLOL SUCCINATE (ER) 25 MG TAB.ER.24H PO SCH (08:49)
[2020-09-07] MEDS: DOCUSATE 100 MG CAP PO SCH ×2 (08:49→19:58)
[2020-09-07] MEDS: ENOXAPARIN 40 MG/0.4 ML SYRINGE SQ SCH (08:49)
[2020-09-07] MEDS: ATORVASTATIN 40 MG TAB PO SCH (08:49)
[2020-09-07] MEDS: PANTOPRAZOLE 40 MG TABLET PO SCH (08:49)
[2020-09-07 09:32] LABS: Basophils # (A) 0.03 X 10*3/uL (0.00-0.10); Basophils % (A) 0.5 %; Eosinophils # (A) 0.12 X 10*3/uL (0.04-0.35); Eosinophils % (A) 1.9 %; HCT 37.9 % (39.6-50.0); HGB 12.2 g/dL (13.0-17.0); Lymphocytes # (A) 1.41 X 10*3/uL (0.90-5.00); Lymphocytes % (A) 22.2 %; MCH 30.6 pg (27.0-32.0); MCHC 32.2 g/dL (32.0-37.0); Mean Platelet Volume 9.3 fL (9.5-12.2); Monocytes # (A) 0.49 X 10*3/uL (0.20-1.00); Monocytes % (A) 7.7 %; Neutrophils # (A) 4.29 X 10*3/uL (1.80-7.70); Neutrophils % (A) 67.5 %; Platelet Count 138 X 10*3/uL (140-440); RBC 3.99 X 10*6/uL (4.40-5.60); WBC 6.35 X 10*3/uL (4.50-10.00)
[2020-09-07] MEDS: HYDROcodone/APAP 5-325MG 1 EACH TAB PO PRN ×2 (09:44→16:08)
[2020-09-07 09:48] LABS: African American GFR (CKD) 57.4 (60.0-200.0); Anion Gap 6.3 mmol/L (4.00-12.00); Calcium 8.4 mg/dL (8.7-10.3); Carbon Dioxide 26.7 mmol/L (21.6-31.8); Non-African American GFR(CKD) 49.5 (60.0-200.0); Potassium 4.3 mmol/L (3.5-5.5)
[2020-09-07] MEDS ORDERED: TAMSULOSIN 0.4 MG CAP.ER.24H PO STA (14:13)
--- NOTE | 2020-09-07 14:48 | P.PN ---
Subjective Progress Note Date: 09/07/20 CHIEF COMPLAINT: Panniculus HISTORY OF PRESENT ILLNESS: Patient is postop day #1 status post panniculectomy and repair of incisional hernia. Patient had Nix catheter removed this morning. Unfortunately he still has not urinated. Flomax has been added. Patient will be bladder scanned. Patient states that he's had issues with urinary retention after surgery in the past. He is also requiring nursing help to ambulate. He reports that his pain is controlled. He was started on oral [place] this morning. Denies any nausea or vomiting. He's currently tolerating a regular diet. Afebrile. WBC 6.35 hemoglobin 12.2 creatinine 1.5 glucose 112 PHYSICAL EXAM: VITAL SIGNS: Reviewed. GENERAL: Well-developed in no acute distress. HEENT: No sclera icterus. Extraocular movements grossly intact. Moist buccal mucosa. Head is atraumatic, normocephalic. ABDOMEN: Soft. Nondistended. Incision dressing clean dry and intact. Patient has 2 LUKE drains with sanguinous fluid NEUROLOGIC: Alert and oriented. Cranial nerves II through XII grossly intact. ASSESSMENT: 1. Panniculus status post panniculectomy and repair of incisional hernia PLAN: -Add Flomax -Monitor for urinary retention. Check post void residual -Continue pain medication as needed -Continue regular diet -Encourage patient to ambulate and use incentive spirometer Physician Coal Handler note has been reviewed by physician. Signing provider agrees with the documented findings, assessment, and plan of care. Objective - Vital Signs Vital signs: Vital Signs Temp 98.8 F 09/07/20 14:00 Pulse 54 L 09/07/20 14:00 Resp 16 09/07/20 14:00 BP 100/60 09/07/20 14:00 Pulse Ox 97 09/07/20 14:00 Intake & Output 09/06/20 09/07/20 09/07/20 18:59 06:59 18:59 Intake Total 1050 Output Total 675 320 Balance 375 -320 Weight 92 kg Intake: IV 1050 Output: Drainage 70 Left Lower Abdomen 60 Right Lower Abdomen 10 Urine 575 250 Estimated Blood Loss 100 Other: Voiding Method Indwelling Catheter Indwelling Catheter - Labs CBC & Chem 7: 09/07/20 06:11 09/07/20 06:11 Labs: Abnormal Lab Results - Last 24 Hours (Table) 09/07/20 09/07/20 Range/Units 06:11 06:11 RBC 3.99 L (4.40-5.60) X 10*6/uL Hgb 12.2 L (13.0-17.0) g/dL Hct 37.9 L (39.6-50.0) % Plt Count 138 L (140-440) X 10*3/uL MPV 9.3 L (9.5-12.2) fL Est GFR (CKD-EPI)AfAm 57.4 L (60.0-200.0) Est GFR (CKD-EPI)NonAf 49.5 L (60.0-200.0) Glucose 112 H (70-110) mg/dL Calcium 8.4 L (8.7-10.3) mg/dL
--- NOTE | 2020-09-07 15:12 | P.PN ---
Subjective Progress Note Date: 09/07/20 - Reason for Consult Consult date: 09/06/20 Medical management - Chief Complaint s/p Panniculectomy - History of Present Illness Patient is a 59-year-old male with a known history of coronary disease status CABG in 1998, renal cell cancer status post left nephrectomy, hypertension, diabetes type 2 controlled after bariatric surgery was admitted to the hospital for Panniculectomy. Patient has been having recurrent abdominal infection and panniculitis. Patient tolerated the procedure very well currently surgical site is bandaged. Pain is fairly controlled. No complaints of chest pain or shortness of breath. No nausea vomiting or diarrhea postoperatively blood pressure is on the lower side. 09/07/2020 Patient is seen and evaluated in follow-up status post panniculectomy and is being closely monitored. LUKE drain showing serosanguineous fluid and surgical site dressing is dry and intact with abdominal binder noted. Patient is up in the chair and denies any chest pain or shortness of breath at this time. Blood pressure continues to be on the lower side and will continue to monitor closely as metoprolol has been resumed. Incentive spirometer at the bedside and instructed patient to continue using at least 10 times every hour while awake. Patient is tolerating diet with no reports of nausea or vomiting noted. Hemoglobin is stable at 12.2, white blood count is 6.35, sodium is 138, pot[place] m is 4.3, current creatinine is 1.5. Review of systems: Constitutional: No reports of fatigue, fever, or chills Cardiovascular: No reports of chest pain or palpitations Respiratory: No reports of shortness of breath or cough GI: No reports of nausea, vomiting, patient denies any gas or bowel movements at this time, some abdominal tenderness at the incision site : No reports of dysuria or retention, recent Nix catheter removal Neurovascular: No reports of weakness or numbness All medications have been reviewed Objective - Vital Signs Vital signs: Vital Signs Temp 97.9 F 09/07/20 07:27 Pulse 59 L 09/07/20 07:27 Resp 15 09/07/20 07:27 BP 99/56 09/07/20 07:27 Pulse Ox 97 09/07/20 07:27 Intake & Output 09/06/20 09/07/20 09/07/20 18:59 06:59 18:59 Intake Total 1050 Output Total 675 320 Balance 375 -320 Weight 92 kg Intake: IV 1050 Output: Drainage 70 Left Lower Abdomen 60 Right Lower Abdomen 10 Urine 575 250 Estimated Blood Loss 100 Other: Voiding Method Indwelling Catheter Indwelling Catheter - Exam Patient is sitting up in the chair comfortably, no acute distress, awake alert and oriented.. HEENT: Normocephalic. Neck is supple. Pupils reactive. Nostrils clear. Oral cavity is moist. Ears reveal no drainage. Neck reveals no JVD, carotid bruits, or thyromegaly. CHEST EXAMINATION: Trachea is central. Symmetrical expansion. Lung red clear to auscultation and percussion. CARDIAC: Normal S1, S2 with no gallops. No murmurs ABDOMEN: Soft. Abdominal surgical site is bandaged and is dry and intact area did LUKE drain noted with serosanguineous fluid along with abdominal binder, hypoactive bowel sounds noted. No organomegaly. No abdominal bruits. Extremities: reveal no edema. No clubbing or cyanosis Neurologically awake, alert, oriented x3 with well-coordinated movements. No focal deficits noted Skin: No rash or skin lesions. Psychiatric: Cooperative. Non-suicidal Musculoskeletal: No joint swelling or deformity. Normal range of motion. This patient was cared for during of federal and state declared state of emergency secondary to COVID 19 - Labs CBC & Chem 7: 09/07/20 06:11 09/07/20 06:11 Labs: Abnormal Lab Results - Last 24 Hours (Table) 09/07/20 09/07/20 Range/Units 06:11 06:11 RBC 3.99 L (4.40-5.60) X 10*6/uL Hgb 12.2 L (13.0-17.0) g/dL Hct 37.9 L (39.6-50.0) % Plt Count 138 L (140-440) X 10*3/uL MPV 9.3 L (9.5-12.2) fL Est GFR (CKD-EPI)AfAm 57.4 L (60.0-200.0) Est GFR (CKD-EPI)NonAf 49.5 L (60.0-200.0) Glucose 112 H (70-110) mg/dL Calcium 8.4 L (8.7-10.3) mg/dL Assessment and Plan Assessment: Status post Panniculectomy. Postoperative day 1 Recurrent abdominal wall skin infection/folliculitis Hypertension currently slightly hypotensive Diabetes type 2 history with improvement after bariatric surgery Hyperlipidemia Coronary artery disease status post CABG in 1998 History of renal cell carcinoma History of lap band surgery GERD Bipolar disorder and schizoaffective disorder Previous history of smoking DVT prophylaxis on Lovenox subcu Plan: Patient will be continued pain management, bowel regimen and encourage incentive spirometry. We will continue with metoprolol and continue to monitor vital signs his blood pressure continues to be on the lower side. Gentle IV hydration and continue with home medications. will follow closely and further recom mendations based on the clinical course. Will repeat a.m. labs as creatinine is 1.5 today. No reports of gas or bowel movements at this time and diet has been advanced and tolerating. Increase activity as tolerated. Nix catheter discontinued. Thank you for this consult and we will continue to follow along with you during hospitalization.
[2020-09-07] MEDS ORDERED: SODIUM CHLORIDE 0.9% 1,000 ML IV ONE (17:26)
[2020-09-07] MEDS: SODIUM CHLORIDE 0.9% 1,000 ML IV SCH ×2 (17:39→23:00)
[2020-09-07] MEDS ORDERED: TAMSULOSIN 0.4 MG CAP.ER.24H PO SCH (18:30)
[2020-09-07] MEDS: QUEtiapine 400 MG TAB PO SCH (19:58)
[2020-09-08] MEDS: HYDROcodone/APAP 5-325MG 1 EACH TAB PO PRN ×3 (03:03→15:03)
[2020-09-08] MEDS: KETOROLAC 15 MG/ML 1 ML VIAL IVP SCH (05:40)
[2020-09-08 07:28] LABS: Glucose,Whole Blood 114 mg/dL (75-99)
[2020-09-08 07:40] VITALS: RESP 16
[2020-09-08] MEDS: ENOXAPARIN 40 MG/0.4 ML SYRINGE SQ SCH (08:48)
[2020-09-08] MEDS: DOCUSATE 100 MG CAP PO SCH (08:48)
[2020-09-08] MEDS: PANTOPRAZOLE 40 MG TABLET PO SCH (08:48)
[2020-09-08] MEDS: METOPROLOL SUCCINATE (ER) 25 MG TAB.ER.24H PO SCH (08:48)
[2020-09-08] MEDS: ATORVASTATIN 40 MG TAB PO SCH (08:48)
[2020-09-08] MEDS: SODIUM CHLORIDE 0.9% 1,000 ML IV SCH (08:49)
[2020-09-08] MEDS ORDERED: TAMSULOSIN 0.4 MG CAP.ER.24H PO STA (11:01)
[2020-09-08 11:49] LABS: Glucose,Whole Blood 148 mg/dL (75-99)
[2020-09-08 12:50] LABS: African American GFR (CKD) 68.3 (60.0-200.0); BUN/Creat Ratio 23.85 Ratio (12.00-20.00); Calcium 7.7 mg/dL (8.7-10.3); Non-African American GFR(CKD) 58.9 (60.0-200.0); Potassium 4.4 mmol/L (3.5-5.5)
--- NOTE | 2020-09-08 13:31 | P.PN ---
Subjective Progress Note Date: 09/08/20 - Reason for Consult Consult date: 09/06/20 Medical management - Chief Complaint s/p Panniculectomy - History of Present Illness Patient is a 59-year-old male with a known history of coronary disease status CABG in 1998, renal cell cancer status post left nephrectomy, hypertension, diabetes type 2 controlled after bariatric surgery was admitted to the hospital for Panniculectomy. Patient has been having recurrent abdominal infection and panniculitis. Patient tolerated the procedure very well currently surgical site is bandaged. Pain is fairly controlled. No complaints of chest pain or shortness of breath. No nausea vomiting or diarrhea postoperatively blood pressure is on the lower side. 09/07/2020 Patient is seen and evaluated in follow-up status post panniculectomy and is being closely monitored. LUKE drain showing serosanguineous fluid and surgical site dressing is dry and intact with abdominal binder noted. Patient is up in the chair and denies any chest pain or shortness of breath at this time. Blood pressure continues to be on the lower side and will continue to monitor closely as metoprolol has been resumed. Incentive spirometer at the bedside and instructed patient to continue using at least 10 times every hour while awake. Patient is tolerating diet with no reports of nausea or vomiting noted. Hemoglobin is stable at 12.2, white blood count is 6.35, sodium is 138, potassiu m is 4.3, current creatinine is 1.5. 09/09/2020 Patient is seen and evaluated this morning continues to have an indwelling Nix catheter stating he was retaining and unable to urinate and the catheter was replaced. Will discuss with surgery about removing the Nix and continuing with Flomax. Patient states he has a previous medical history which causes him to not urinate very often and having an indwelling Nix catheter will not help. Patient states he is passing gas although no reports of bowel movements at this time. Patient is tolerating diet and no nausea or vomiting noted. Creatinine slightly improved at 1.3 today, sodium is 141, potassium is 4.4. Appropriate home medications have been resumed. Patient states he is up and walking and incentive spirometer at the bedside and instructed the patient to continue using at least 10 times every hour while awake. Patient states he is hopefully being discharged today. Review of systems: Constitutional: No reports of fatigue, fever, or chills Cardiovascular: No reports of chest pain or palpitations Respiratory: No reports of shortness of breath or cough GI: No reports of nausea, vomiting, patient is passing gas although no bowel movements : No reports of dysuria or retention, patient reports retaining last night and had Nix catheter replaced although requesting for Nix catheter to be discontinued again Neurovascular: No reports of weakness or numbness All medications have been reviewed Objective - Vital Signs Vital signs: Vital Signs Temp 98.4 F 09/08/20 07:39 Pulse 70 09/08/20 07:39 Resp 16 09/08/20 07:39 BP 94/57 09/08/20 07:39 Pulse Ox 93 L 09/08/20 07:39 Intake & Output 09/07/20 09/08/20 09/08/20 18:59 06:59 18:59 Intake Total 1500 200 Output Total 290 840 360 Balance -290 660 -160 Intake: Intake, IV Titration 1500 Amount Sodium Chloride 0.9% 1, 1500 000 ml @ 125 mls/hr IV . Q8H [facility] Rx#:[id number] Oral 200 Output: Drainage 290 240 60 Left Lower Abdomen 200 180 60 Right Lower Abdomen 90 60 Urine 600 300 Uretheral (Nix) 300 Other: Voiding Method Indwelling Catheter Indwelling Catheter Indwelling Catheter - Exam Patient is sitting up in the chair comfortably, no acute distress, awake alert and oriented.. HEENT: Normocephalic. Neck is supple. Pupils reactive. Nostrils clear. Oral cavity is moist. Ears reveal no drainage. Neck reveals no JVD, carotid bruits, or thyromegaly. CHEST EXAMINATION: Trachea is central. Symmetrical expansion. Lung red clear to auscultation and percussion. CARDIAC: Normal S1, S2 with no gallops. No murmurs ABDOMEN: Soft. Abdominal surgical site is bandaged and is dry and intact. LUKE drain noted with serosanguineous fluid along with abdominal binder, bowel sounds noted. No organomegaly. No abdominal bruits. Extremities: reveal no edema. No clubbing or cyanosis Neurologically awake, alert, oriented x3 with well-coordinated movements. No focal deficits noted Skin: No rash or skin lesions. Psychiatric: Cooperative. Non-suicidal Musculoskeletal: No joint swelling or deformity. Normal range of motion. - Labs CBC & Chem 7: 09/07/20 06:11 09/08/20 06:07 Labs: Abnormal Lab Results - Last 24 Hours (Table) 09/08/20 09/08/20 09/08/20 Range/Units 06:07 07:03 11:47 [place] 112 H (96-109) mmol/L BUN 31.0 H (9.0-27.0) mg/dL Est GFR (CKD-EPI)NonAf 58.9 L (60.0-200.0) BUN/Creatinine Ratio 23.85 H (12.00-20.00) Ratio Glucose 114 H (70-110) mg/dL POC Glucose (mg/dL) 114 H 148 H (75-99) mg/dL Calcium 7.7 L (8.7-10.3) mg/dL Assessment and Plan Assessment: Status post Panniculectomy. Postoperative day 2 Recurrent abdominal wall skin infection/folliculitis Hypertension currently slightly hypotensive Diabetes type 2 history with improvement after bariatric surgery Hyperlipidemia Coronary artery disease status post CABG in 1998 History of renal cell carcinoma History of lap band surgery GERD Bipolar disorder and schizoaffective disorder Previous history of smoking DVT prophylaxis on Lovenox Plan: Patient will be continued pain management, bowel regimen and encourage incentive spirometry. We will continue with metoprolol and continue to monitor vital signs his blood pressure continues to be on the lower side. IV fluids discontinued. Creatinine slightly improved at 1.3 today. Per patient Nix catheter was removed yesterday although retaining an indwelling Nix catheter was replaced. Patient is requesting to have indwelling Nix catheter removed prior to discharge. Will continue with Flomax. Patient reports passing gas although no bowel movements at this time. Increase activity as tolerated. Nix catheter to be discontinued. Patient states he is being discharged home today. Thank you for this consult and we will continue to follow along with you during hospitalization.
--- NOTE | 2020-09-08 13:48 | P.DS ---
Providers Date of admission: 09/06/20 20:23 Expected date of discharge: 09/08/20 Attending physician: Giovanny Martinez Consults: 09/06/20 11:07 Consult Physician Routine Consulting Provider: Ya Cabezas Consult Reason/Comments: Medical management Do you want consulting provider notified?: Yes Primary care physician: Gayla Wolf Hospital Course: Discharge diagnosis 1. Panniculus status post panniculectomy and repair of incisional hernia Hospital course This a 59-year-old male who loss in excess 40 pounds. Patient presents for panniculus. He's had trouble with panniculitis and chronic skin infections. Patient is status post panniculectomy and repair of incisional hernia. Patient tolerated surgery well. Pain is controlled. He is tolerating diet. He is passing gas. Patient is stable for discharge. Please refer to chart for any further details. Physician Contract Designer note has been reviewed by physician. Signing provider agrees with the documented findings, assessment, and plan of care. Patient Condition at Discharge: Stable Plan - Discharge Summary Discharge Rx Participant: Yes New Discharge Prescriptions: New Docusate [Colace] 100 mg PO BID cap Tamsulosin [Flomax] 0.4 mg PO PC-SUPPER 30 Days #30 cap.er.24h Continue Cholecalciferol [Vitamin D3 (25 Mcg = 1000 Iu)] 2,000 unit PO DAILY Magnesium 400 mg PO DAILY Calcium Carbonate [Calcium] 600 mg PO DAILY QUEtiapine FUMARATE [SEROquel] 400 mg PO HS HYDROcodone/APAP 10-325MG [[place] 10-325] 1 tab PO Q6HR PRN PRN Reason: Pain Omeprazole 20 mg PO DAILY Iron 65 mg PO DAILY Atorvastatin [Lipitor] 40 mg PO DAILY Metoprolol Succinate (ER) [Toprol XL] 25 mg PO DAILY Discontinued Aspirin [Adult Low Dose Aspirin EC] 81 mg PO DAILY Discharge Medication List Calcium Carbonate [Calcium] 600 mg PO DAILY 05/17/20 [History] Cholecalciferol [Vitamin D3 (25 Mcg = 1000 Iu)] 2,000 unit PO DAILY 05/17/20 [History] HYDROcodone/APAP 10-325MG [[place] 10-325] 1 tab PO Q6HR PRN 05/17/20 [History] Iron 65 mg PO DAILY 05/17/20 [History] Magnesium 400 mg PO DAILY 05/17/20 [History] Omeprazole 20 mg PO DAILY 05/17/20 [History] QUEtiapine FUMARATE [SEROquel] 400 mg PO HS 05/17/20 [History] Atorvastatin [Lipitor] 40 mg PO DAILY 08/31/20 [History] Metoprolol Succinate (ER) [Toprol XL] 25 mg PO DAILY 08/31/20 [History] Docusate [Colace] 100 mg PO BID cap 09/08/20 [Rx] Tamsulosin [Flomax] 0.4 mg PO PC-SUPPER 30 Days #30 cap.er.24h 09/08/20 [Rx] Follow up Appointment(s)/Referral(s): Giovanny Martinez MD [STAFF PHYSICIAN] - 1 Week Activity/Diet/Wound Care/Special Instructions: No driving while taking [place] No lifting over 10 pounds You may shower. No soaking or tub baths for 2 weeks Very light activity until you are reevaluated at your follow up appointment with your surgeon Keep a log of LUKE drain output and bring with you to your follow-up appointment Milk/strip drains 2-3 times a day Discharge Disposition: HOME SELF-CARE
[2020-09-08] MEDS ORDERED: SODIUM CHLORIDE 0.9% 1,000 ML IV ONE (14:16)
[2020-09-08 15:25] VITALS: BP 102/62; PULSE 69; TEMP 97.8
[2020-09-08 17:04] LABS: Glucose,Whole Blood 105 mg/dL (75-99)
== END 2020-09-08 18:41 | disposition home or self-care (01) ==
LOC: OR 06:48 → 4SSUR 10:52 → OR 20:23
PROVIDERS: ADMIT Surgery; ATTEND Surgery
DX: M79.3 Panniculitis, unspecified (principal); K43.2 Incisional hernia without obstruction or gangrene; I25.10 Atherosclerotic heart disease of native coronary artery without angina pectoris; K21.9 Gastro-esophageal reflux disease without esophagitis; E78.5 Hyperlipidemia, unspecified; I10 Essential (primary) hypertension; D50.9 Iron deficiency anemia, unspecified; F25.9 Schizoaffective disorder, unspecified; F31.9 Bipolar disorder, unspecified; L73.9 Follicular disorder, unspecified; I95.9 Hypotension, unspecified; Z86.19 Personal history of other infectious and parasitic diseases; Z86.39 Personal history of other endocrine, nutritional and metabolic disease; Z79.82 Long term (current) use of aspirin; Z79.891 Long term (current) use of opiate analgesic; Z79.899 Other long term (current) drug therapy; R33.9 Retention of urine, unspecified; Z90.49 Acquired absence of other specified parts of digestive tract; Z95.1 Presence of aortocoronary bypass graft; Z98.84 Bariatric surgery status; Z85.528 Personal history of other malignant neoplasm of kidney; Z87.891 Personal history of nicotine dependence; Z98.1 Arthrodesis status; Z80.3 Family history of malignant neoplasm of breast; Z82.5 Family history of asthma and other chronic lower respiratory diseases
CPT/HCPCS: 15830; 49560; 80048 ×2; 85025; G0378 ×3; J2250; J1644; J1100; J2710; J0690; J2405 ×2; J2001; J1650 ×2; J3010; J1885 ×3; J2370; J0330; J2704; J1170

== ENCOUNTER 2020-09-09 11:35 | Emergency (ER) | payer MEDICARE, OTHER ==
[2020-09-09 11:45] VITALS: TEMP 98.5
[2020-09-09] MEDS ORDERED: LIDOCAINE URO-JET JELLY 2% 5 ML KIT URETHRAL ONE (12:33)
--- NOTE | 2020-09-09 12:42 | ED ---
General Adult HPI - General Chief complaint: Urogenital Stated complaint: revisit - urinary problems Time Seen by Provider: 09/09/20 12:21 Source: patient, RN notes reviewed Mode of arrival: ambulatory Limitations: no limitations - History of Present Illness Initial comments: This a 59-year-old male presents emergency Department with chief complaint of d ifficulty urinating. Patient states that he is having some difficulty after surgery on Sunday states is Another day in the hospital states that he had approximate 200 and mild out and was discharged. Patient states he is only having dribbling at this time. Patient states he feels like he has to go. Patient does have noted drains which have been draining well. He states she's had no fevers chills no other complaints. - Related Data Home Medications Medication Instructions Recorded Confirmed Calcium Carbonate [Calcium] 600 mg PO DAILY 05/17/20 09/09/20 Cholecalciferol [Vitamin D3 (25 2,000 unit PO DAILY 05/17/20 09/09/20 Mcg = 1000 Iu)] HYDROcodone/APAP 10-325MG [[place] 1 tab PO Q6HR PRN 05/17/20 09/09/20 10-325] Iron 65 mg PO DAILY 05/17/20 09/09/20 Magnesium 400 mg PO DAILY 05/17/20 09/09/20 Omeprazole 20 mg PO DAILY 05/17/20 09/09/20 QUEtiapine FUMARATE [SEROquel] 400 mg PO HS 05/17/20 09/09/20 Atorvastatin [Lipitor] 40 mg PO DAILY 08/31/20 09/09/20 Metoprolol Succinate (ER) [Toprol 25 mg PO DAILY 08/31/20 09/09/20 XL] Previous Rx's Medication Instructions Recorded Docusate [Colace] 100 mg PO BID cap 09/08/20 Tamsulosin [Flomax] 0.4 mg PO PC-SUPPER 30 Days #30 09/08/20 cap.er.24h Tamsulosin [Flomax] 0.4 mg PO DAILY #7 cap 09/09/20 Allergies Allergy/AdvReac Type Severity Reaction Status Date / Time No Known Allergies Allergy Verified 09/09/20 12:37 Review of Systems ROS Statement: Those systems with pertinent positive or pertinent negative responses have been documented in the HPI. ROS Other: All systems not noted in ROS Statement are negative. Past Medical History Past Medical History: Blood Disorder, Coronary Artery Disease (CAD), Cancer, Diabetes Mellitus, GERD/Reflux, Hyperlipidemia, Hypertension Additional Past Medical History / Comment(s): hx. KIDNEY CANCER, iron deficiency anemia, states no longer considered diabetic since weight loss-no further meds & hgba1c is normal per pt, states recent stress normal History of Any Multi-Drug Resistant Organisms: None Reported Past Surgical History: Appendectomy, Bariatric Surgery, Coronary Bypass/CABG, Joint Replacement, Orthopedic Surgery Additional Past Surgical History / Comment(s): quad. bypass 1998, lt kidney removed, BILAT TKA,guerda shoulders scoped,LAP-BAND,Gastric sleeve conversion,bowel adhesions removed, COLONOSCOPY, EGD; spinal fusion June 2018, Panniculectomy aug 2020. Past Anesthesia/Blood Transfusion Reactions: No Reported Reaction Past Psychological History: Bipolar, Depression, Schizoaffective Disorder Smoking Status: Former smoker Past Alcohol Use History: None Reported Past Drug Use History: None Reported - Past Family History Mother Family Medical History: Cancer Additional Family Medical History / Comment(s): at age 66 from Breast Cancer Father Additional Family Medical History / Comment(s): at age 76 from emphysema General Exam Limitations: no limitations General appearance: alert, in no apparent distress Head exam: Present: atraumatic, normocephalic, normal inspection Neck exam: Present: normal inspection. Absent: tenderness, meningismus, lymphad enopathy Respiratory exam: Present: normal lung sounds bilaterally. Absent: respiratory distress, wheezes, rales, rhonchi, stridor Cardiovascular Exam: Present: regular rate, normal rhythm, normal heart sounds. Absent: systolic murmur, diastolic murmur, rubs, gallop, clicks GI/Abdominal exam: Present: soft, tenderness, normal bowel sounds, other (Surgical incision is well-healing, no drainage noted, there are 2 amy drains in suprapubic region which are draining well). Absent: distended, guarding, rebound, rigid Course Vital Signs 09/09/20 11:42 Temperature 98.5 F Pulse Rate 84 Respiratory 18 Rate Blood Pressure 106/66 O2 Sat by Pulse 95 Oximetry Medical Decision Making - Medical Decision Making Nix catheter was placed by nurse with no complications. Patient does have good amount of output. Patient will have Nix catheter left in and follow-up with surgeon, Disposition Clinical Impression: Urinary retention Disposition: HOME SELF-CARE Condition: Stable Instructions (If sedation given, give patient instructions): Urinary Retention in Men (ED) Additional Instructions: Please return to the Emergency Department if symptoms worsen or any other concerns. Prescriptions: Tamsulosin [Flomax] 0.4 mg PO DAILY #7 cap Is patient prescribed a controlled substance at d/c from ED?: No Referrals: Luciano Shukla MD [Primary Care Provider] - 1-2 days Rahat Osuna MD [STAFF PHYSICIAN] - 1-2 days Giovanny Martinez MD [STAFF PHYSICIAN] - 1-2 days Time of Disposition: 13:37
[2020-09-09 13:55] VITALS: BP 133/98; PULSE 70; RESP 16
== END 2020-09-09 13:55 | disposition home or self-care (01) ==
LOC: EC 11:35
DX: R33.9 Retention of urine, unspecified (principal); E78.5 Hyperlipidemia, unspecified; I10 Essential (primary) hypertension; D50.9 Iron deficiency anemia, unspecified; K21.9 Gastro-esophageal reflux disease without esophagitis; F32.9 Major depressive disorder, single episode, unspecified; F25.9 Schizoaffective disorder, unspecified; Z79.899 Other long term (current) drug therapy; Z85.528 Personal history of other malignant neoplasm of kidney; Z90.5 Acquired absence of kidney; Z96.653 Presence of artificial knee joint, bilateral; Z87.891 Personal history of nicotine dependence
CPT/HCPCS: 51702; 51798; 99283

== ENCOUNTER → 2020-09-13 | Outpatient (CLI) | payer MEDICARE, OTHER ==
[2020-09-13 13:04] VITALS: BP 116/73; PULSE 68; RESP 18; TEMP 98.2; BMI 28.6
--- NOTE | 2020-10-08 08:59 | P.HPBAR ---
Bariatric H&P - History & Physicial H&P Date: 09/13/20 History & Physicial: Visit/CC: follow up Patient initial contact: Initial weight: 99.025 kg Initial weight in pounds: 218.31 Height: 5 ft 10 in Initial BMI: 31.3 Last weight: Current weight: 90.582 kg Current weight in pounds: 199.70 Current BMI: 28.6 [place] body weight (based on NIH guidelines): 75.296 kg Excess body weight loss: 35.5% The patient is a 59 year-old M who presents for Bariatric Assessment. Patient presents today for panniculectomy follow-up. He is doing quite well. He is still producing serosanguineous drainage through his LUKE drains. His incision site is clean dry intact. Past Medical History Past Medical History: Blood Disorder, Coronary Artery Disease (CAD), Cancer, Diabetes Mellitus, GERD/Reflux, Hyperlipidemia, Hypertension Additional Past Medical History / Comment(s): hx. KIDNEY CANCER, iron deficiency anemia, states no longer considered diabetic since weight loss-no further meds & hgba1c is normal per pt, states recent stress normal History of Any Multi-Drug Resistant Organisms: None Reported Past Surgical History: Appendectomy, Bariatric Surgery, Coronary Bypass/CABG, J oint Replacement, Orthopedic Surgery Additional Past Surgical History / Comment(s): quad. bypass 1998, lt kidney removed, BILAT TKA,guerda shoulders scoped,LAP-BAND,Gastric sleeve conversion,bowel adhesions removed, COLONOSCOPY, EGD; spinal fusion June 2018, Panniculectomy aug 2020. Past Anesthesia/Blood Transfusion Reactions: No Reported Reaction Smoking Status: Former smoker - Past Family History Mother Family Medical History: Cancer Additional Family Medical History / Comment(s): at age 66 from Breast Cancer Father Additional Family Medical History / Comment(s): at age 76 from emphyse ma Surgical - Exam Vital Signs Temp Pulse Resp BP 98.2 F 68 18 116/73 09/13/20 12:56 09/13/20 12:56 09/13/20 12:56 09/13/20 12:56 - General well developed, well nourished, no distress - Eyes PERRL - ENT normal pinna - Neck no masses - Respiratory normal expansion - Cardiovascular Rhythm: regular - Abdomen Incision is clean dry tach. Bariatric Checklist Checklist: Plan: Checklist: EGD: 1. Hiatal hernia: 2. H. Pylori: HgbA1c: Vitamin D: Smoking: Former smoker Primary care physician referral: FADY Psychiatry clearance: Cardiology clearance: Sleep study: Diet journal: VTE risk score: VTE risk level: Rehab needs at discharge:
== END | disposition home or self-care (01) ==
LOC: BARWHC3 12:40
PROVIDERS: ATTEND Surgery
DX: Z48.815 Encounter for surgical aftercare following surgery on the digestive system (principal); Z98.84 Bariatric surgery status
CPT/HCPCS: 99212

== ENCOUNTER → 2020-09-20 | Outpatient (CLI) | payer MEDICARE, OTHER ==
[2020-09-20 14:31] VITALS: BP 137/73; PULSE 73; RESP 16; TEMP 98.3; BMI 27.9
== END | disposition home or self-care (01) ==
LOC: BARWHC3 12:41
PROVIDERS: ATTEND Surgery
DX: Z48.815 Encounter for surgical aftercare following surgery on the digestive system (principal); M79.3 Panniculitis, unspecified
CPT/HCPCS: 99212

== ENCOUNTER → 2020-09-27 | Outpatient (CLI) | payer MEDICARE, OTHER ==
--- NOTE | 2020-09-27 14:37 | P.HPBAR ---
Bariatric H&P - History & Physicial H&P Date: 09/27/20 History & Physicial: Visit/CC: Lul f/u Patient initial contact: Initial weight: 99.025 kg Initial weight in pounds: 218.31 Height: 5 ft 10 in Initial BMI: 31.3 Last weight: Current weight: 88.451 kg Current weight in pounds: 195.00 Current BMI: 27.9 [place] body weight (based on NIH guidelines): 75.296 kg Excess body weight loss: 44.5% The patient is a 59 year-old M who presents for Bariatric Assessment. Patient presents today for clinic follow-up. He is doing well. He has no real complaints. Past Medical History Past Medical History: Blood Disorder, Coronary Artery Disease (CAD), Cancer, Diabetes Mellitus, GERD/Reflux, Hyperlipidemia, Hypertension Additional Past Medical History / Comment(s): hx. KIDNEY CANCER, iron deficiency anemia, states no longer considered diabetic since weight loss-no further meds & hgba1c is normal per pt, states recent stress normal History of Any Multi-Drug Resistant Organisms: None Reported Past Surgical History: Appendectomy, Bariatric Surgery, Coronary Bypass/CABG, Joint Replacement, Orthopedic Surgery Additional Past Surgical History / Comment(s): quad. bypass 1998, lt kidney removed, BILAT TKA,guerda shoulders scoped,LAP-BAND,Gastric sleeve conversion,bowel adhesions removed, COLONOSCOPY, EGD; spinal fusion June 2018, Panniculectomy aug 2020. Past Anesthesia/Blood Transfusion Reactions: No Reported Reaction Past Psychological History: Bipolar, Depression, Schizoaffective Disorder Additional Psychological History / Comment(s): antisocial disorder Smoking Status: Former smoker Past Alcohol Use History: None Reported Additional Past Alcohol Use History / Comment(s): smoked for 27 years, quit in 2001 Past Drug Use History: None Reported - Past Family History Mother Family Medical History: Cancer Additional Family Medical History / Comment(s): at age 66 from Breast Cancer Father Additional Family Medical History / Comment(s): at age 76 from emphysema Surgical - Exam Vital Signs Temp Pulse Resp BP 98.1 F 63 16 140/87 09/27/20 12:47 09/27/20 12:47 09/27/20 12:47 09/27/20 12:47 - General well developed, well nourished, no distress - Eyes PERRL - ENT normal pinna - Neck no masses - Respiratory normal expansion - Cardiovascular Rhythm: regular - Abdomen Abdomen: soft, non tender Bariatric Assessment & Plan Plan: Status post panniculectomy. Patient did quite well. He will follow-up next week for drain removal Bariatric Checklist Checklist: Plan: Checklist: EGD: 1. Hiatal hernia: 2. H. Pylori: HgbA1c: Vitamin D: Smoking: Former smoker Primary care physician referral: FADY Psychiatry clearance: Cardiology clearance: Sleep study: Diet journal: VTE risk score: VTE risk level: Rehab needs at discharge:
== END ==
CPT/HCPCS: 99211

== ENCOUNTER → 2020-10-04 | Outpatient (CLI) | payer MEDICARE, OTHER ==
--- NOTE | 2020-10-04 15:43 | P.HPBAR ---
Bariatric H&P - History & Physicial H&P Date: 10/04/20 History & Physicial: Visit/CC: ROSA Follow up Patient initial contact: Initial weight: 99.025 kg Initial weight in pounds: 218.31 Height: 5 ft 10 in Initial BMI: 31.3 Last weight: Current weight: 89.358 kg Current weight in pounds: 197.00 Current BMI: 28.3 [place] body weight (based on NIH guidelines): 75.296 kg Excess body weight loss: 40.7% The patient is a 59 year-old M who presents for Bariatric Assessment. Patient presents today for Follow-up. He has had minimal 3 LUKE drains. Past Medical History Past Medical History: Blood Disorder, Coronary Artery Disease (CAD), Cancer, Arin betes Mellitus, GERD/Reflux, Hyperlipidemia, Hypertension Additional Past Medical History / Comment(s): hx. KIDNEY CANCER, iron deficiency anemia, states no longer considered diabetic since weight loss-no further meds & hgba1c is normal per pt, states recent stress normal History of Any Multi-Drug Resistant Organisms: None Reported Past Surgical History: Appendectomy, Bariatric Surgery, Coronary Bypass/CABG, Joint Replacement, Orthopedic Surgery Additional Past Surgical History / Comment(s): quad. bypass 1998, lt kidney removed, BILAT TKA,guerda shoulders scoped,LAP-BAND,Gastric sleeve conversion,bowel adhesions removed, COLONOSCOPY, EGD; spinal fusion June 2018, Panniculectomy aug 2020. Past Anesthesia/Blood Transfusion Reactions: No Reported Reaction Past Psychological History: Bipolar, Depression, Schizoaffective Disorder Additional Psychological History / Comment(s): antisocial disorder Smoking Status: Former smoker Past Alcohol Use History: None Reported Additional Past Alcohol Use History / Comment(s): smoked for 27 years, quit in 2001 Past Drug Use History: None Reported - Past Family History Mother Family Medical History: Cancer Additional Family Medical History / Comment(s): at age 66 from Breast Cancer Father Additional Family Medical History / Comment(s): at age 76 from emphysema Surgical - Exam Vital Signs Temp Pulse Resp BP 98.1 F 96 18 130/78 10/04/20 13:09 10/04/20 13:09 10/04/20 13:09 10/04/20 13:09 - General well developed, well nourished - Eyes PERRL - ENT normal pinna - Neck no masses - Respiratory normal expansion - Cardiovascular Rhythm: regular - Abdomen Abdomen: soft, non tender Bariatric Assessment & Plan Plan: Patient's LUKE drains removed. He will follow-up one week. Bariatric Checklist Checklist: Plan: Checklist: EGD: 1. Hiatal hernia: 2. H. Pylori: HgbA1c: Vitamin D: Smoking: Former smoker Primary care physician referral: FADY Psychiatry clearance: Cardiology clearance: Sleep study: Diet journal: VTE risk score: VTE risk level: Rehab needs at discharge:
== END | disposition home or self-care (01) ==
CPT/HCPCS: 99212

== ENCOUNTER → 2020-10-11 | Outpatient (CLI) | payer MEDICARE, OTHER ==
[2020-10-11 13:29] VITALS: BP 149/68; PULSE 68; TEMP 98.3; BMI 27.9
--- NOTE | 2020-10-18 16:00 | P.HPBAR ---
Bariatric H&P - History & Physicial H&P Date: 10/11/20 History & Physicial: Visit/CC: jay follow up Patient initial contact: Initial weight: 99.025 kg Initial weight in pounds: 218.31 Height: 5 ft 10 in Initial BMI: 31.3 Last weight: Current weight: 88.451 kg Current weight in pounds: 195.00 Current BMI: 27.9 [place] body weight (based on NIH guidelines): 75.296 kg Excess body weight loss: 44.5% The patient is a 59 year-old M who presents for Bariatric Assessment. Patient rents today for pickup a fall. He's had no complaints. His swelling has improved. Past Medical History Past Medical History: Blood Disorder, Coronary Artery Disease (CAD), Cancer, Diabetes Mellitus, GERD/Reflux, Hyperlipidemia, Hypertension Additional Past Medical History / Comment(s): hx. KIDNEY CANCER, iron deficiency anemia, states no longer considered diabetic since weight loss-no further meds & hgba1c is normal per pt, states recent stress normal History of Any Multi-Drug Resistant Organisms: None Reported Past Surgical History: Appendectomy, Bariatric Surgery, Coronary Bypass/CABG, Joint Replacement, Orthopedic Surgery Additional Past Surgical History / Comment(s): quad. bypass 1998, lt kidney removed, BILAT TKA,guerda shoulders scoped,LAP-BAND,Gastric sleeve conversion,bowel adhesions removed, COLONOSCOPY, EGD; spinal fusion June 2018, Panniculectomy aug 2020. Past Anesthesia/Blood Transfusion Reactions: No Reported Reaction Past Psychological History: Bipolar, Depression, Schizoaffective Disorder Additional Psychological History / Comment(s): antisocial disorder Smoking Status: Former smoker Past Alcohol Use History: None Reported Additional Past Alcohol Use History / Comment(s): smoked for 27 years, quit in 2001 Past Drug Use History: None Reported - Past Family History Mother Family Medical History: Cancer Additional Family Medical History / Comment(s): at age 66 from Breast Cancer Father Additional Family Medical History / Comment(s): at age 76 from emphysema Surgical - Exam Vital Signs Temp Pulse BP 98.3 F 68 149/68 10/11/20 13:24 10/11/20 13:24 10/11/20 13:24 - General well developed, well nourished, no distress - Eyes PERRL - ENT normal pinna - Neck no masses - Respiratory normal expansion - Cardiovascular Rhythm: regular - Abdomen Incisions clean dry intact. Abdomen: soft, non tender Bariatric Assessment & Plan Plan: Status post panniculus. Patient's doing quite well. Incisions clean. He'll follow-up in 4 weeks. Bariatric Checklist Checklist: Plan: Checklist: EGD: 1. Hiatal hernia: 2. H. Pylori: HgbA1c: Vitamin D: Smoking: Former smoker Primary care physician referral: FADY Psychiatry clearance: Cardiology clearance: Sleep study: Diet journal: VTE risk score: VTE risk level: Rehab needs at discharge:
== END ==
LOC: BARWHC3 12:53
PROVIDERS: ATTEND Surgery
DX: Z98.84 Bariatric surgery status (principal); Z46.51 Encounter for fitting and adjustment of gastric lap band; Z98.890 Other specified postprocedural states; I10 Essential (primary) hypertension; E78.5 Hyperlipidemia, unspecified; K21.9 Gastro-esophageal reflux disease without esophagitis; I25.10 Atherosclerotic heart disease of native coronary artery without angina pectoris; E11.9 Type 2 diabetes mellitus without complications; Z87.891 Personal history of nicotine dependence
CPT/HCPCS: 99211

== ENCOUNTER → 2020-11-08 | Outpatient (CLI) | payer MEDICARE, OTHER ==
[2020-11-08 14:09] VITALS: BP 136/88; PULSE 64; RESP 18; TEMP 98.2; BMI 28.4
--- NOTE | 2020-12-07 12:33 | P.HPBAR ---
Bariatric H&P - History & Physicial H&P Date: 11/08/20 History & Physicial: Visit/CC: ROSA follow up Patient initial contact: Initial weight: 99.025 kg Initial weight in pounds: 218.31 Height: 5 ft 10 in Initial BMI: 31.3 Last weight: Current weight: 89.811 kg Current weight in pounds: 198.00 Current BMI: 28.4 [place] body weight (based on NIH guidelines): 75.296 kg Excess body weight loss: 38.8% The patient is a 59 year-old M who presents for Bariatric Assessment. Patient presents today for pannicular to fall. He is doing quite well his incisions are healing nicely. He has no complaints Past Medical History Past Medical History: Blood Disorder, Coronary Artery Disease (CAD), Cancer, Diabetes Mellitus, GERD/Reflux, Hyperlipidemia, Hypertension Additional Past Medical History / Comment(s): hx. KIDNEY CANCER, iron deficiency anemia, states no longer considered diabetic since weight loss-no further meds & hgba1c is normal per pt, states recent stress normal History of Any Multi-Drug Resistant Organisms: None Reported Past Surgical History: Appendectomy, Bariatric Surgery, Coronary Bypass/CABG, Joint Replacement, Orthopedic Surgery Additional Past Surgical History / Comment(s): quad. bypass 1998, lt kidney removed, BILAT TKA,guerda shoulders scoped,LAP-BAND,Gastric sleeve conversion,bowel adhesions removed, COLONOSCOPY, EGD; spinal fusion June 2018, Panniculectomy aug 2020. Past Anesthesia/Blood Transfusion Reactions: No Reported Reaction Past Psychological History: Bipolar, Depression, Schizoaffective Disorder Additional Psychological History / Comment(s): antisocial disorder Smoking Status: Former smoker Past Alcohol Use History: None Reported Additional Past Alcohol Use History / Comment(s): smoked for 27 years, quit in 2001 Past Drug Use History: None Reported - Past Family History Mother Family Medical History: Cancer Additional Family Medical History / Comment(s): at age 66 from Breast Cancer Father Additional Family Medical History / Comment(s): at age 76 from emphysema Surgical - Exam Vital Signs Temp Pulse Resp BP 98.2 F 64 18 136/88 11/08/20 13:59 11/08/20 13:59 11/08/20 13:59 11/08/20 13:59 - General well developed, well nourished, no distress - Eyes PERRL - ENT normal pinna - Neck no masses - Respiratory normal expansion - Cardiovascular Rhythm: regular - Abdomen Abdomen: soft, non tender, no guarding, no rigid, no rebound Bariatric Assessment & Plan Plan: Status post pannicular 2. Patient to go well. He'll follow-up in 4 weeks Bariatric Checklist Checklist: Plan: Checklist: EGD: 1. Hiatal hernia: 2. H. Pylori: HgbA1c: Vitamin D: Smoking: Former smoker Primary care physician referral: FADY Psychiatry clearance: Cardiology clearance: Sleep study: Diet journal: VTE risk score: VTE risk level: Rehab needs at discharge:
== END ==
LOC: BARWHC3 12:52
PROVIDERS: ATTEND Surgery
DX: Z09 Encounter for follow-up examination after completed treatment for conditions other than malignant neoplasm (principal); E11.9 Type 2 diabetes mellitus without complications; I25.10 Atherosclerotic heart disease of native coronary artery without angina pectoris; E78.5 Hyperlipidemia, unspecified; I10 Essential (primary) hypertension; F20.9 Schizophrenia, unspecified; F31.9 Bipolar disorder, unspecified; Z87.891 Personal history of nicotine dependence; Z98.84 Bariatric surgery status
CPT/HCPCS: 99212

== ENCOUNTER → 2020-12-06 | Outpatient (CLI) | payer MEDICARE, OTHER ==
[2020-12-06 14:05] VITALS: BP 151/89; PULSE 99; RESP 18; TEMP 99.1; BMI 28.4
--- NOTE | 2020-12-07 11:39 | P.HPBAR ---
Bariatric H&P - History & Physicial H&P Date: 12/06/20 History & Physicial: Visit/CC: follow up/jay Patient initial contact: Initial weight: 99.025 kg Initial weight in pounds: 218.31 Height: 5 ft 10 in Initial BMI: 31.3 Last weight: Current weight: 89.811 kg Current weight in pounds: 198.00 Current BMI: 28.4 [place] body weight (based on NIH guidelines): 75.296 kg Excess body weight loss: 38.8% The patient is a 59 year-old M who presents for Bariatric Assessment. Patient presents today for follow-up. He complains of swelling of his abdominal wall. Past Medical History Past Medical History: Blood Disorder, Coronary Artery Disease (CAD), Cancer, Diabetes Mellitus, GERD/Reflux, Hyperlipidemia, Hypertension Additional Past Medical History / Comment(s): hx. KIDNEY CANCER, iron deficiency anemia, states no longer considered diabetic since weight loss-no further meds & hgba1c is normal per pt, states recent stress normal History of Any Multi-Drug Resistant Organisms: None Reported Past Surgical History: Appendectomy, Bariatric Surgery, Coronary Bypass/CABG, Joint Replacement, Orthopedic Surgery Additional Past Surgical History / Comment(s): quad. bypass 1998, lt kidney removed, BILAT TKA,guerda shoulders scoped,LAP-BAND,Gastric sleeve conversion,bowel adhesions removed, COLONOSCOPY, EGD; spinal fusion June 2018, Panniculectomy aug 2020. Past Anesthesia/Blood Transfusion Reactions: No Reported Reaction Past Psychological History: Bipolar, Depression, Schizoaffective Disorder Additional Psychological History / Comment(s): antisocial disorder Smoking Status: Former smoker Past Alcohol Use History: None Reported Additional Past Alcohol Use History / Comment(s): smoked for 27 years, quit in 2001 Past Drug Use History: None Reported - Past Family History Mother Family Medical History: Cancer Additional Family Medical History / Comment(s): at age 66 from Breast Cancer Father Additional Family Medical History / Comment(s): at age 76 from emphysema Surgical - Exam Vital Signs Temp Pulse Resp BP 99.1 F 99 18 151/89 12/06/20 14:00 12/06/20 14:00 12/06/20 14:00 12/06/20 14:00 - General well developed, well nourished, no distress - Eyes PERRL - ENT normal pinna - Neck no masses - Respiratory normal expansion - Cardiovascular Rhythm: regular - Abdomen Seroma lower abdominal over suprapubic position Abdomen: soft, non tender Bariatric Assessment & Plan Plan: Abdominal wall seroma. Patient was scheduled for ultrasound-guided drainage. Bariatric Checklist Checklist: Plan: Checklist: EGD: 1. Hiatal hernia: 2. H. Pylori: HgbA1c: Vitamin D: Smoking: Former smoker Primary care physician referral: FADY Psychiatry clearance: Cardiology clearance: Sleep study: Diet journal: VTE risk score: VTE risk level: Rehab needs at discharge:
== END ==
LOC: BARWHC3 13:34
PROVIDERS: ATTEND Surgery
DX: K91.872 Postprocedural seroma of a digestive system organ or structure following a digestive system procedure (principal); E11.9 Type 2 diabetes mellitus without complications; I25.10 Atherosclerotic heart disease of native coronary artery without angina pectoris; E78.5 Hyperlipidemia, unspecified; I10 Essential (primary) hypertension; Z87.891 Personal history of nicotine dependence; F31.9 Bipolar disorder, unspecified; F25.9 Schizoaffective disorder, unspecified; Z98.84 Bariatric surgery status
CPT/HCPCS: 99212

== ENCOUNTER 2020-12-08 15:05 | Emergency (ER) | payer MEDICARE, OTHER ==
[2020-12-08 15:12] VITALS: TEMP 97.8
--- NOTE | 2020-12-08 15:50 | ED ---
General Adult HPI - General Chief complaint: Abdominal Pain Stated complaint: fluid retention/abdomen Time Seen by Provider: 12/08/20 15:14 Source: patient, RN notes reviewed, old records reviewed Mode of arrival: ambulatory Limitations: no limitations - History of Present Illness Initial comments: 59-year-old male presenting with abdominal distention and discomfort. Patient states that several months ago he had a panniculectomy and has had some swelling in his mid abdomen. He is scheduled for ultrasound guided paracentesis in 8 days. He states that the swelling has become more prominent and more uncomfortable. He denies significant pain. He denies constipation, or vomiting. No fever. - Related Data Home Medications Medication Instructions Recorded Confirmed Calcium Carbonate [Calcium] 1,200 mg PO DAILY 05/17/20 12/08/20 Cholecalciferol [Vitamin D3 (25 4,000 unit PO DAILY 05/17/20 12/08/20 Mcg = 1000 Iu)] HYDROcodone/APAP 10-325MG [[place] 1 tab PO Q6HR PRN 05/17/20 12/08/20 10-325] Omeprazole 20 mg PO DAILY 05/17/20 12/08/20 QUEtiapine FUMARATE [SEROquel] 400 mg PO HS 05/17/20 12/08/20 Atorvastatin [Lipitor] 40 mg PO DAILY 08/31/20 12/08/20 Metoprolol Succinate (ER) [Toprol 25 mg PO DAILY 08/31/20 12/08/20 XL] Aspirin EC [Ecotrin Low Dose] 81 mg PO DAILY 12/08/20 12/08/20 Ferrous Sulfate [Feosol] 325 mg PO DAILY 12/08/20 12/08/20 Magnesium Oxide 800 mg PO DAILY 12/08/20 12/08/20 Allergies Allergy/AdvReac Type Severity Reaction Status Date / Time No Known Allergies Allergy Verified 12/08/20 16:23 Review of Systems ROS Statement: Those systems with pertinent positive or pertinent negative responses have been documented in the HPI. ROS Other: All systems not noted in ROS Statement are negative. Past Medical History Past Medical History: Blood Disorder, Coronary Artery Disease (CAD), Cancer, Diabetes Mellitus, GERD/Reflux, Hyperlipidemia, Hypertension Additional Past Medical History / Comment(s): hx. KIDNEY CANCER, iron deficiency anemia, states no longer considered diabetic since weight loss-no further meds & hgba1c is normal per pt, states recent stress normal, seroma post panni culectomy History of Any Multi-Drug Resistant Organisms: None Reported Past Surgical History: Appendectomy, Bariatric Surgery, Coronary Bypass/CABG, J oint Replacement, Orthopedic Surgery Additional Past Surgical History / Comment(s): quad. bypass 1998, lt kidney removed, BILAT TKA,guerda shoulders scoped,LAP-BAND,Gastric sleeve conversion,bowel adhesions removed, COLONOSCOPY, EGD; spinal fusion June 2018, Panniculectomy aug 2020. Past Anesthesia/Blood Transfusion Reactions: No Reported Reaction Past Psychological History: Bipolar, Depression, Schizoaffective Disorder Smoking Status: Former smoker Past Alcohol Use History: None Reported Past Drug Use History: None Reported - Past Family History Mother Family Medical History: Cancer Additional Family Medical History / Comment(s): at age 66 from Breast Cancer Father Additional Family Medical History / Comment(s): at age 76 from emphysema General Exam Limitations: no limitations General appearance: alert, in no apparent distress Head exam: Present: atraumatic, normocephalic Eye exam: Present: normal appearance, PERRL ENT exam: Present: normal exam Neck exam: Present: normal inspection. Absent: tenderness, meningismus Respiratory exam: Present: normal lung sounds bilaterally. Absent: respiratory distress, wheezes Cardiovascular Exam: Present: regular rate, normal rhythm GI/Abdominal exam: Present: soft, distended, hernia. Absent: tenderness, guarding, rebound Extremities exam: Present: normal inspection, normal capillary refill Neurological exam: Present: alert, oriented X3, CN II-XII intact. Absent: motor sensory deficit Psychiatric exam: Present: normal affect, normal mood Skin exam: Present: warm, dry, intact. Absent: cyanosis, diaphoretic Course Vital Signs 12/08/20 15:07 Temperature 97.8 F Pulse Rate 67 Respiratory 20 Rate Blood Pressure 133/81 O2 Sat by Pulse 99 Oximetry Medical Decision Making - Medical Decision Making 59-year-old male who presented with anterior abdominal wall swelling status post panniculectomy in August. He scheduled for ultrasound guided drainage on the with surgeon Dr. Martinez. He has normal labs, he has a stable hemoglobin, normal white blood cell count. CT is performed which shows a large fluid collection which may be hematoma versus seroma. I do not suspect this is infectious I do not suspect any active hemorrhage. I discussed case with Dr. Martinez, who recommends patient continued to plan for ultrasound guided drainage on the which is 8 days from now. Patient's given return parameters. We'll follow up. Will return as needed. Patient had been offered an abdominal binder but refused. States this makes his discomfort worse. - Lab Data Result diagrams: 12/08/20 15:52 12/08/20 15:52 Lab Results 12/08/20 12/08/20 12/08/20 Range/Units 15:52 15:52 15:52 WBC 4.4 (3.8-10.6) k/uL RBC 4.82 (4.30-5.90) m/uL Hgb 14.1 (13.0-17.5) gm/dL Hct 43.4 (39.0-53.0) % MCV 89.9 (80.0-100.0) fL MCH 29.2 (25.0-35.0) pg MCHC 32.5 (31.0-37.0) g/dL RDW 14.9 (11.5-15.5) % Plt Count 141 L (150-450) k/uL MPV 6.5 Neutrophils % 57 % Lymphocytes % 25 % Monocytes % 7 % Eosinophils % 9 % Basophils % 1 % Neutrophils # 2.5 (1.3-7.7) k/uL Lymphocytes # 1.1 (1.0-4.8) k/uL Monocytes # 0.3 (0-1.0) k/uL Eosinophils # 0.4 (0-0.7) k/uL Basophils # 0.1 (0-0.2) k/uL PT 10.2 (9.0-12.0) sec INR 0.9 (<1.2) APTT 25.8 (22.0-30.0) sec Sodium 137 (137-145) mmol/L Potassium 4.4 (3.5-5.1) mmol/L Chloride 105 (98-107) mmol/L Carbon Dioxide 26 (22-30) mmol/L Anion Gap 6 mmol/L BUN 27 H (9-20) mg/dL Creatinine 1.06 (0.66-1.25) mg/dL Est GFR (CKD-EPI)AfAm 88 (>60 ml/min/1.73 sqM) Est GFR (CKD-EPI)NonAf 76 (>60 ml/min/1.73 sqM) Glucose 104 H (74-99) mg/dL Plasma Lactic Acid [place] (0.7-2.0) mmol/L Calcium 9.3 (8.4-10.2) mg/dL Total Bilirubin 0.3 (0.2-1.3) mg/dL AST 27 (17-59) U/L ALT 15 (4-49) U/L Alkaline Phosphatase 81 (38-126) U/L Total Protein 6.2 L (6.3-8.2) g/dL Albumin 3.7 (3.5-5.0) g/dL Amylase 80 (30-110) U/L Lipase 136 (23-300) U/L Urine Color Urine Appearance (Clear) Urine pH (5.0-8.0) Ur Specific [place] (1.001-1.035) Urine Protein (Negative) Urine Glucose (UA) (Negative) Urine Ketones (Negative) Urine Blood (Negative) Urine Nitrite (Negative) Urine Bilirubin (Negative) Urine Urobilinogen (<2.0) mg/dL Ur Leukocyte Esterase (Negative) 12/08/20 12/08/20 Range/Units 15:52 16:00 WBC (3.8-10.6) k/uL RBC (4.30-5.90) m/uL Hgb (13.0-17.5) gm/dL Hct (39.0-53.0) % MCV (80.0-100.0) fL MCH (25.0-35.0) pg MCHC (31.0-37.0) g/dL RDW (11.5-15.5) % Plt Count (150-450) k/uL MPV Neutrophils % % Lymphocytes % % Monocytes % % Eosinophils % % Basophils % % Neutrophils # (1.3-7.7) k/uL Lymphocytes # (1.0-4.8) k/uL Monocytes # (0-1.0) k/uL Eosinophils # (0-0.7) k/uL Basophils # (0-0.2) k/uL PT (9.0-12.0) sec INR (<1.2) APTT (22.0-30.0) sec Sodium (137-145) mmol/L Potassium (3.5-5.1) mmol/L Chloride (98-107) mmol/L Carbon Dioxide (22-30) mmol/L Anion Gap mmol/L BUN (9-20) mg/dL Creatinine (0.66-1.25) mg/dL Est GFR (CKD-EPI)AfAm (>60 ml/min/1.73 sqM) Est GFR (CKD-EPI)NonAf (>60 ml/min/1.73 sqM) Glucose (74-99) mg/dL Plasma Lactic Acid [place] 0.8 (0.7-2.0) mmol/L Calcium (8.4-10.2) mg/dL Total Bilirubin (0.2-1.3) mg/dL AST (17-59) U/L ALT (4-49) U/L Alkaline Phosphatase (38-126) U/L Total Protein (6.3-8.2) g/dL Albumin (3.5-5.0) g/dL Amylase (30-110) U/L Lipase (23-300) U/L Urine Color Light Yellow Urine Appearance Clear (Clear) Urine pH 5.5 (5.0-8.0) Ur Specific [place] 1.017 (1.001-1.035) Urine Protein Negative (Negative) Urine Glucose (UA) Negative (Negative) Urine Ketones Negative (Negative) Urine Blood Negative (Negative) Urine Nitrite Negative (Negative) Urine Bilirubin Negative (Negative) Urine Urobilinogen <2.0 (<2.0) mg/dL Ur Leukocyte Esterase Negative (Negative) Disposition Clinical Impression: S/P panniculectomy, Seroma after procedure Disposition: HOME SELF-CARE Condition: Good Instructions (If sedation given, give patient instructions): Seroma (DC) Is patient prescribed a controlled substance at d/c from ED?: No Referrals: Luciano Shukla MD [Primary Care Provider] - 1-2 days Giovanny Martinez MD [STAFF PHYSICIAN] - 1-2 days Time of Disposition: 17:56
[2020-12-08 16:05] LABS: Basophils # (A) 0.1 k/uL (0-0.2); Basophils % (A) 1 %; Eosinophils # (A) 0.4 k/uL (0-0.7); Eosinophils % (A) 9 %; HCT 43.4 % (39.0-53.0); HGB 14.1 gm/dL (13.0-17.5); Lymphocytes # (A) 1.1 k/uL (1.0-4.8); Lymphocytes % (A) 25 %; MCH 29.2 pg (25.0-35.0); MCHC 32.5 g/dL (31.0-37.0); MCV 89.9 fL (80.0-100.0); Mean Platelet Volume 6.5; Monocytes # (A) 0.3 k/uL (0-1.0); Monocytes % (A) 7 %; Neutrophils # (A) 2.5 k/uL (1.3-7.7); Neutrophils % (A) 57 %; Platelet Count 141 k/uL (150-450); RBC 4.82 m/uL (4.30-5.90); RDW 14.9 % (11.5-15.5); WBC 4.4 k/uL (3.8-10.6)
[2020-12-08 16:15] LABS: Albumin 3.7 g/dL (3.5-5.0); Calcium 9.3 mg/dL (8.4-10.2); INR 0.9 (<1.2); Partial Thromboplastin Time 25.8 sec (22.0-30.0); Potassium 4.4 mmol/L (3.5-5.1); Prothrombin Time 10.2 sec (9.0-12.0); Total Bilirubin 0.3 mg/dL (0.2-1.3); Total Protein 6.2 g/dL (6.3-8.2)
[2020-12-08 16:25] LABS: Appearance,Urine Clear (Clear); Bilirubin,Urine Negative (Negative); Blood,Urine Negative (Negative); Color,Urine Light Yellow; Glucose,Urine (UA) Negative (Negative); Ketones,Urine Negative (Negative); Leukocyte Esterase,Urine Negative (Negative); Nitrite,Urine Negative (Negative); PH, Urine 5.5 (5.0-8.0); Protein,Urine Negative (Negative); Specific Gravity,Urine 1.017 (1.001-1.035); Urobilinogen,Urine <2.0 mg/dL (<2.0)
--- NOTE | 2020-12-08 16:56 | CT ---
EXAMINATION TYPE: CT abdomen pelvis w con DATE OF EXAM: 12/08/2020 COMPARISON: 06/26/2017 HISTORY: Fluid retention after drainage tubes removed. CT DLP: 1324 mGycm Automated exposure control for dose reduction was used. CONTRAST: Performed with IV Contrast, patient injected with 100 mL of Isovue 300. Images were obtained from the diaphragm to the floor the pelvis with IV contrast. Lung bases show minimal subsegmental atelectasis at the left lung base. Heart size is normal. There i s no pericardial effusion. There are surgical clips apparently at the greater curvature of the stomac h. Gallbladder is intact. Spleen is intact. There is no evidence of pancreatic mass. Liver shows no f ocal defect. The bile ducts are not dilated. There is no adrenal mass. There is a irregular small density at the left renal bed that could be a se verely dysplastic kidney. This measures 2.4 cm. The right kidney has normal size with normal contrast excretion. There is no hydronephrosis. Ureters are not dilated. There is no retroperitoneal adenopat hy. Bladder distends smoothly. There is no inguinal hernia. There is no free fluid in the pelvis. Del ayed images show normal renal excretion. There is no mesenteric edema. There is no ascites or free air. There is no bowel obstruction. Appendi x is not definitely seen. There is no sign of thickened appendix. There is posterior fusion surgery at L5-S1. There is narrowing of L5-S1 disc space. There is no compr ession fracture. The bony pelvis is intact. There is mild acetabular spurring. There is sharply marginated rounded fluid collection that appears to be in the subcutaneous tissues o n the anterior abdominal wall and measures 12 x 5.7 x 13 cm. This has low attenuation. There is sligh t increased density in the dependent portion that could be a fluid level with hemorrhagic component. IMPRESSION: Large subcutaneous complex fluid collection could be chronic hematoma or abscess on the anterior abdo bambi wall. I have no recent exam to compare. This appears new compared to old exam. 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
[2020-12-08 18:28] VITALS: BP 132/79; PULSE 98; RESP 16
== END 2020-12-08 18:27 | disposition home or self-care (01) ==
LOC: EC 15:05
DX: K91.872 Postprocedural seroma of a digestive system organ or structure following a digestive system procedure (principal); I25.10 Atherosclerotic heart disease of native coronary artery without angina pectoris; E78.5 Hyperlipidemia, unspecified; K21.9 Gastro-esophageal reflux disease without esophagitis; E11.9 Type 2 diabetes mellitus without complications; I10 Essential (primary) hypertension; Z85.528 Personal history of other malignant neoplasm of kidney; Z95.1 Presence of aortocoronary bypass graft; F32.9 Major depressive disorder, single episode, unspecified; F25.9 Schizoaffective disorder, unspecified; Z87.891 Personal history of nicotine dependence; Z96.653 Presence of artificial knee joint, bilateral; Z79.899 Other long term (current) drug therapy; Z79.82 Long term (current) use of aspirin; Z98.890 Other specified postprocedural states
CPT/HCPCS: 36415; 80053; 82150; 83605; 83690; 85025; 85610; 85730; 81003; 74177; 99284; Q9967

== ENCOUNTER 2020-12-16 09:46 | Day surgery (SDC) | payer MEDICARE, OTHER ==
[2020-12-16 11:00] VITALS: RESP 16; TEMP 98.1
[2020-12-16 11:20] VITALS: BP 111/67; PULSE 66
--- NOTE | 2020-12-16 13:57 | US ---
EXAMINATION TYPE: US guided soft tissue drainage DATE OF EXAM: 12/16/2020 HISTORY: Seroma postop fluid collection tear abdomen FINDINGS: Maximal barrier technique was utilized. The skin overlying a suitable path to the fluid wi thin the anterior abdomen was localized with ultrasound and the overlying skin prepped and draped. L idocaine was used for local anesthesia. A skin dari made with a scalpel. Access was gained under di rect ultrasound guidance to the fluid with a 5 [place] catheter. Ultrasound was utilized using sterile technique, catheter advanced and needle removed. Aspiration was performed with a 60 cc syringe.. Da rk color fluid returned. Following aspiration is verified by ultrasound with no residual fluid, the c atheter was removed. Hemostasis achieved. No immediate complication and the patient remained in stab le condition. 600 cc dark fluid was removed. IMPRESSION: STATUS POST ULTRASOUND GUIDED SEROMA DRAINAGE, THIS PROCEDURE WAS PERFORMED BY THE UNDERS IGNED.
== END 2020-12-16 11:20 | disposition home or self-care (01) ==
LOC: RADPROMAIN 09:46
PROVIDERS: ATTEND Surgery
DX: L76.34 Postprocedural seroma of skin and subcutaneous tissue following other procedure (principal)
CPT/HCPCS: 10030; 76942

== ENCOUNTER 2021-03-24 08:42 | Day surgery (SDC) | payer MEDICARE, OTHER ==
[2021-03-24 09:15] VITALS: RESP 16; TEMP 98.1
--- NOTE | 2021-03-24 10:12 | US ---
EXAMINATION TYPE: US guided soft tissue drainage DATE OF EXAM: 03/24/2021 HISTORY: Seroma, recurrent along the anterior abdominal wall, postop FINDINGS: Maximal barrier technique was utilized. The skin overlying a suitable path to the fluid in the midline along the anterior abdominal wall within the subcutaneous fat was localized with ultraso und and the overlying skin prepped and draped. Lidocaine was used for local anesthesia. A skin dari made with a scalpel. Access was gained under direct ultrasound guidance to the fluid with a 21-gaug e needle. Ultrasound was utilized using sterile technique. A 0.018 inch wire was advanced. Access s ite was dilated and an 5-[place]is[place] catheter advanced into the seroma. 300 cc dark sanguinous fluid was removed. Catheter removed. Hemostasis achieved. No immediate complication and the patient remained in stable condition. IMPRESSION: STATUS POST ULTRASOUND GUIDED SEROMA DRAINAGE, THIS PROCEDURE WAS PERFORMED BY THE UNDERS IGNED.
[2021-03-24 10:23] VITALS: BP 141/73; PULSE 61
== END 2021-03-24 10:15 | disposition home or self-care (01) ==
LOC: RADPROMAIN 08:42
PROVIDERS: ATTEND Surgery
DX: L76.34 Postprocedural seroma of skin and subcutaneous tissue following other procedure (principal)
CPT/HCPCS: 10030; 76942

== ENCOUNTER 2021-05-30 10:49 | Emergency (ER) | payer MEDICARE, OTHER ==
[2021-05-30 11:24] VITALS: RESP 18
[2021-05-30] MEDS ORDERED: HYDROcodone/APAP 5-325MG 1 EACH TAB PO STA (12:25)
[2021-05-30] MEDS ORDERED: ONDANSETRON ODT 4 MG TAB PO STA (12:31)
--- NOTE | 2021-05-30 13:08 | XR ---
EXAMINATION TYPE: XR Hip RT and AP Pelvis DATE OF EXAM: 05/30/2021 COMPARISON: NONE HISTORY: Hip pain TECHNIQUE: A single AP view of the pelvis is obtained. Two views of the right hip are obtained. FINDINGS: There is no acute fracture/dislocation evident in the pelvis. Hypertrophic changes are pre sent at the lateral margins of the acetabula, there is some associated joint space loss. The and sacr oiliac joints appear asymmetric, hypertrophic changes are present greatest at the inferior margin of the left sacroiliac joint, there may be ankylosis, there is no evident erosion. Postop changes are no tiara status post posterior fusion L5-S1, degenerative disc changes are present in the visualized spine . Dense vascular calcifications are present within the pelvis.. The overlying soft tissue appears un remarkable. Two views of right hip show no acute fracture or dislocation. No focal lytic or sclerotic lesion see n in the proximal right femur. The overlying soft tissue is unremarkable. IMPRESSION: There is no acute fracture or dislocation in the pelvis or right hip. Correlate for poss ible acetabular femoral impingement. Degenerative disc disease and postop changes in the lumbosacral spine, probable osteoarthritic change left sacroiliac joint
--- NOTE | 2021-05-30 13:56 | ED ---
General Adult HPI - General Chief complaint: Extremity Problem,Nontraumatic Stated complaint: rt sided hip/abd pain Time Seen by Provider: 05/30/21 11:33 Source: patient, RN notes reviewed, old records reviewed Mode of arrival: ambulatory Limitations: no limitations - History of Present Illness Initial comments: Patient is a 60-year-old male with past medical history remarkable for chronic arthritis, as well as chronic right hip pain and presents emergency Department complaining of acute on chronic right hip pain. Denies any new injuries. His endorses right hip is hurt worse over the last week. His calves as a sharp pain that radiates from the outside aspect of his right hip towards his groin. He is aware that he will eventually require right hip surgery, but due to the worsening pain and inability to follow up with his orthopedic surgeon on a short-term basis, he presents here with department for evaluation. Denies any injuries. Denies any trauma. Has no other acute complaints at this time. Dies fevers, chills, cough, sick contacts. Denies any penile discharge, testicular pain or swelling. Denies any abdominal pain, nausea, vomiting, change in bowel habits, diarrhea. Patient presents over concern for right hip pain. He is already on [place] at home for pain control. I evaluated the patient when he was placed in a room. Patient denies any urinary or bowel incontinence, saddle anesthesias, difficulty walking. Pain is worse with ambulation, however he is still able to ambulate without difficulty. - Related Data Home Medications Medication Instructions Recorded Confirmed Calcium Carbonate [Calcium] 1,200 mg PO DAILY 05/17/20 03/18/21 Cholecalciferol [Vitamin D3 (25 4,000 unit PO DAILY 05/17/20 03/18/21 Mcg = 1000 Iu)] HYDROcodone/APAP 10-325MG [[place] 1 tab PO Q6HR PRN 05/17/20 03/18/21 10-325] Omeprazole 20 mg PO DAILY 05/17/20 03/18/21 QUEtiapine FUMARATE [SEROquel] 400 mg PO HS 05/17/20 03/18/21 Atorvastatin [Lipitor] 40 mg PO DAILY 08/31/20 03/18/21 Metoprolol Succinate (ER) [Toprol 25 mg PO DAILY 08/31/20 03/18/21 XL] Aspirin EC [Ecotrin Low Dose] 81 mg PO DAILY 12/08/20 03/18/21 Ferrous Sulfate [Feosol] 325 mg PO DAILY 12/08/20 03/18/21 Magnesium Oxide 800 mg PO DAILY 12/08/20 03/18/21 Previous Rx's Medication Instructions Recorded Lidocaine 5% Patch [Lidoderm 5% 1 patch TOPICAL DAILY PRN 7 Days 05/30/21 Patch] #7 patch Allergies Allergy/AdvReac Type Severity Reaction Status Date / Time No Known Allergies Allergy Verified 05/30/21 11:24 Review of Systems ROS Statement: Those systems with pertinent positive or pertinent negative responses have been documented in the HPI. Review of Systems: CONST: Denies fever EYES: Denies blurry vision ENT: Denies nasal congestion C/V: Denies Chest pain RESP: Denies shortness of breath GI: Denies abdominal pain : Denies dysuria SKIN: Denies rash. MSK: Endorses right hip pain. NEURO: Denies headache ROS Other: All systems not noted in ROS Statement are negative. Past Medical History Past Medical History: Blood Disorder, Coronary Artery Disease (CAD), Cancer, Diabetes Mellitus, GERD/Reflux, Hyperlipidemia, Hypertension Additional Past Medical History / Comment(s): hx. KIDNEY CANCER, iron deficiency anemia, states no longer considered diabetic since weight loss-no further meds & hgba1c is normal per pt, states recent stress normal, seroma post panniculectomy History of Any Multi-Drug Resistant Organisms: None Reported Past Surgical History: Appendectomy, Bariatric Surgery, Coronary Bypass/CABG, Joint Replacement, Orthopedic Surgery Additional Past Surgical History / Comment(s): quad. bypass 1998, lt kidney removed, BILAT TKA,guerda shoulders scoped,LAP-BAND,Gastric sleeve conversion,bowel adhesions removed, COLONOSCOPY, EGD; spinal fusion June 2018, Panniculectomy aug 2020. Past Anesthesia/Blood Transfusion Reactions: No Reported Reaction Past Psychological History: Bipolar, Depression, Schizoaffective Disorder Smoking Status: Former smoker Past Alcohol Use History: None Reported Past Drug Use History: None Reported - Past Family History Mother Family Medical History: Cancer Additional Family Medical History / Comment(s): at age 66 from Breast Cancer Father Additional Family Medical History / Comment(s): at age 76 from emphysema General Exam - General Exam Comments Initial Comments: General: Appears in mild distress with discomfort. HEAD: Normal with no signs of head trauma. EYES: PERRLA, EOMI. ENT: Hearing grossly intact, normal oropharynx. RESPIRATORY: Clear breath sounds bilaterally. No wheezes, rales, or rhonchi. C/V: Regular rate and rhythm. S1 and S2 auscultated, no edema, peripheral pulses 2+ and intact throughout ABD: Abd is soft, nontender, nondistended EXT: Patient is right hip tenderness to palpation that radiates across the inguinal ligament towards his groin. No obvious deformity. Normal range of motion otherwise. Patient is able to ambulate. SKIN: No rashes or lesions observed on exposed skin. NEURO: Alert and oriented 4. No focal sensory or strength deficits. : No testicular or penile pain on palpation. Normal exam. Limitations: no limitations Course Vital Signs 05/30/21 05/30/21 11:22 14:00 Temperature 98.1 F 97.5 F L Pulse Rate 71 59 L Respiratory 18 18 Rate Blood Pressure 117/71 138/52 O2 Sat by Pulse 95 98 Oximetry Medical Decision Making - Medical Decision Making Based on the patient's presentation and physical exam, I believe he is experiencing acute on chronic right hip pain. We will obtain x-rays of the right hip and provide him with 2 tablets of [place] 5 for pain control. He was in agreement this plan. His no other acute complaints or new complaints at this time. I do not believe that further laboratory studies or imaging are required. Patient's right hip x-ray revealed no acute fracture dislocation the pelvis. There appears to be acetabular femoral impingement on the right side as well as degenerative disc disease. No other acute findings. I discussed the findings with the patient. I believe that is best for him to follow-up with orthopedic surgery for possible right hip repair. He was in agreement this plan. I will provide him with a prescription for lidocaine patches. Hearing is [place] at home. Patient was therefore discharged home. I will provide the patient with a prescription for lidocaine patches. I instructed the patient to follow up with their PCP in the next 3 days. I provided contact information for follow up with Dr. Patel (who completed an prior surgery for the patient). I explained that the patient should return to the emergency department if they experience any worsening symptoms. Strict return precautions were discussed with the patient. The patient expressed understanding of these instructions. I answered all questions that the patient had. The patient was discharged home in fair condition with their prescriptions and follow up information. Disposition Clinical Impression: Chronic pain, Femoroacetabular impingement of right hip Disposition: HOME SELF-CARE Condition: Fair Instructions (If sedation given, give patient instructions): Hip Pain (ED) Prescriptions: Lidocaine 5% Patch [Lidoderm 5% Patch] 1 patch TOPICAL DAILY PRN 7 Days #7 patch PRN Reason: Pain Is patient prescribed a controlled substance at d/c from ED?: No Referrals: Luciano Shukla MD [Primary Care Provider] - 1-2 days Jose A Patel DO [Doctor of Osteopathic Medicine] - 1-2 days
[2021-05-30 14:01] VITALS: BP 138/52; PULSE 59; TEMP 97.5
== END 2021-05-30 14:00 | disposition home or self-care (01) ==
LOC: EC 10:49
DX: G89.29 Other chronic pain (principal); M25.851 Other specified joint disorders, right hip; E11.9 Type 2 diabetes mellitus without complications; I10 Essential (primary) hypertension; I25.10 Atherosclerotic heart disease of native coronary artery without angina pectoris; E78.5 Hyperlipidemia, unspecified; K21.9 Gastro-esophageal reflux disease without esophagitis; Z79.82 Long term (current) use of aspirin; Z79.899 Other long term (current) drug therapy; Z87.891 Personal history of nicotine dependence; Z85.528 Personal history of other malignant neoplasm of kidney; Z80.3 Family history of malignant neoplasm of breast; Z95.1 Presence of aortocoronary bypass graft; Z90.49 Acquired absence of other specified parts of digestive tract
CPT/HCPCS: 73502; 99283

== ENCOUNTER 2021-06-02 17:30 | Emergency (ER) | payer MEDICARE, OTHER ==
[2021-06-02 17:59] VITALS: BP 157/81; PULSE 56; RESP 18; TEMP 97.9
[2021-06-02] MEDS ORDERED: SODIUM CHLORIDE 0.9% 1,000 ML IV ONE (19:54)
[2021-06-02] MEDS ORDERED: ONDANSETRON 4 MG/2 ML VIAL IVP STA (19:54)
[2021-06-02] MEDS ORDERED: HYDROmorphone 1 MG/ML 1 ML SYRINGE IVP STA ×2 (19:54→22:14)
--- NOTE | 2021-06-02 20:23 | ED ---
Nausea/Vomiting/Diarrhea HPI - General Chief complaint: Nausea/Vomiting/Diarrhea Stated complaint: Vomiting Time Seen by Provider: 06/02/21 19:32 Source: patient Mode of arrival: wheelchair Limitations: no limitations - History of Present Illness Initial comments: 60 year-old male patient presents for evaluation of right hip pain that radiates to the right testicle. States that it has been going on and worsening for the last two weeks. States he was seen Sunday and was told it was likely nerve impingement in the hip. He does have history of hip pain and knows he will eventually need a replacement. States that today he started vomiting due to the pain. He denies pain radiating down the leg. Denies numbness or tingling to the lower extremities. Denies any fever or chills. States the pain is in his right low abdomen, right hip, and right testicle. Denies any difficulty urinating. Denies constipation or diarrhea. Patient denies any recent rash, cough, shortness of breath, chest pain, back pain, numbness, tingling, dizziness, weakness, hematuria, dysuria, urinary urgency, urinary frequency, headache, visual changes, or any other complaints. - Related Data Home Medications Medication Instructions Recorded Confirmed Calcium Carbonate [Calcium] 1,200 mg PO DAILY 05/17/20 03/18/21 Cholecalciferol [Vitamin D3 (25 4,000 unit PO DAILY 05/17/20 03/18/21 Mcg = 1000 Iu)] HYDROcodone/APAP 10-325MG [Foster 1 tab PO Q6HR PRN 05/17/20 03/18/21 10-325] Omeprazole 20 mg PO DAILY 05/17/20 03/18/21 QUEtiapine FUMARATE [SEROquel] 400 mg PO HS 05/17/20 03/18/21 Atorvastatin [Lipitor] 40 mg PO DAILY 08/31/20 03/18/21 Metoprolol Succinate (ER) [Toprol 25 mg PO DAILY 08/31/20 03/18/21 XL] Aspirin EC [Ecotrin Low Dose] 81 mg PO DAILY 12/08/20 03/18/21 Ferrous Sulfate [Feosol] 325 mg PO DAILY 12/08/20 03/18/21 Magnesium Oxide 800 mg PO DAILY 12/08/20 03/18/21 Previous Rx's Medication Instructions Recorded Lidocaine 5% Patch [Lidoderm 5% 1 patch TOPICAL DAILY PRN 7 Days 05/30/21 Patch] #7 patch Allergies Allergy/AdvReac Type Severity Reaction Status Date / Time No Known Allergies Allergy Verified 06/02/21 17:59 Review of Systems ROS Statement: Those systems with pertinent positive or pertinent negative responses have been documented in the HPI. ROS Other: All systems not noted in ROS Statement are negative. Past Medical History Past Medical History: Blood Disorder, Coronary Artery Disease (CAD), Cancer, Diabetes Mellitus, GERD/Reflux, Hyperlipidemia, Hypertension Additional Past Medical History / Comment(s): hx. KIDNEY CANCER, iron deficiency anemia, states no longer considered diabetic since weight loss-no further meds & hgba1c is normal per pt, states recent stress normal, seroma post panniculectomy History of Any Multi-Drug Resistant Organisms: None Reported Past Surgical History: Appendectomy, Bariatric Surgery, Coronary Bypass/CABG, Joint Replacement, Orthopedic Surgery Additional Past Surgical History / Comment(s): quad. bypass 1998, lt kidney removed, BILAT TKA,guerda shoulders scoped,LAP-BAND,Gastric sleeve conversion,bowel adhesions removed, COLONOSCOPY, EGD; spinal fusion June 2018, Panniculectomy aug 2020. Past Anesthesia/Blood Transfusion Reactions: No Reported Reaction Past Psychological History: Bipolar, Depression, Schizoaffective Disorder Smoking Status: Former smoker Past Alcohol Use History: None Reported Past Drug Use History: None Reported - Past Family History Mother Family Medical History: Cancer Additional Family Medical History / Comment(s): at age 66 from Breast Cancer Father Additional Family Medical History / Comment(s): at age 76 from emphysema General Exam Limitations: no limitations General appearance: alert, in no apparent distress, other (This is a well- developed, well-nourished adult male patient in no acute distress. Vital signs upon presentation are temperature 97.9F, pulse 56, respirations 18, blood press ure 157/81, pulse ox 100% on room air.) Eye exam: Present: normal appearance, PERRL, EOMI. Absent: scleral icterus, conjunctival injection, periorbital swelling ENT exam: Present: normal exam, normal oropharynx, mucous membranes moist Respiratory exam: Present: normal lung sounds bilaterally. Absent: respiratory distress, wheezes, rales, rhonchi, stridor Cardiovascular Exam: Present: regular rate, normal rhythm, normal heart sounds. Absent: systolic murmur, diastolic murmur, rubs, gallop, clicks GI/Abdominal exam: Present: soft, tenderness (Suprapubic, right lower quadrant), normal bowel sounds. Absent: distended, guarding, rebound, rigid Neurological exam: Present: alert, oriented X3, CN II-XII intact Psychiatric exam: Present: normal affect, normal mood Skin exam: Present: warm, dry, intact, normal color. Absent: rash Course Vital Signs 06/02/21 17:56 Temperature 97.9 F Pulse Rate 56 L Respiratory 18 Rate Blood Pressure 157/81 O2 Sat by Pulse 100 Oximetry Medical Decision Making - Medical Decision Making 60 year-old male patient presents to the ED for right hip pain radiating to the right lower abdomen and right testicle. Physical exam revealed suprapubic and right lower quadrant tenderness. No testicular swelling. He is afebrile with normal vital signs. Labs reviewed and are unremarkable. CT abdomen and pelvis was obtained and was negative. Given abnormal hip x-ray of the previous visit I did discuss musculoskeletal pain as a cause for his symptoms. We discussed nerve impingement. He does have an appointment with orthopedics tomorrow. He'l l be discharged with instructions to keep this appointment. Return parameters were discussed in detail. He verbalizes understanding and agrees with this plan. My attending is Dr. Gallego. - Lab Data Result diagrams: 06/02/21 20:40 06/02/21 20:40 Lab Results 06/02/21 06/02/21 06/02/21 Range/Units 19:53 20:40 20:40 WBC 7.2 (3.8-10.6) k/uL RBC 5.27 (4.30-5.90) m/uL Hgb 16.3 (13.0-17.5) gm/dL Hct 49.9 (39.0-53.0) % MCV 94.7 (80.0-100.0) fL MCH 31.0 (25.0-35.0) pg MCHC 32.7 (31.0-37.0) g/dL RDW 12.0 (11.5-15.5) % Plt Count 164 (150-450) k/uL MPV 6.7 Neutrophils % 80 % Lymphocytes % 15 % Monocytes % 3 % Eosinophils % 1 % Basophils % 1 % Neutrophils # 5.7 (1.3-7.7) k/uL Lymphocytes # 1.0 (1.0-4.8) k/uL Monocytes # 0.2 (0-1.0) k/uL Eosinophils # 0.1 (0-0.7) k/uL Basophils # 0.0 (0-0.2) k/uL Sodium 137 (137-145) mmol/L Potassium 4.7 (3.5-5.1) mmol/L Chloride 102 (98-107) mmol/L Carbon Dioxide 20 L (22-30) mmol/L Anion Gap 15 mmol/L BUN 21 H (9-20) mg/dL Creatinine 1.16 (0.66-1.25) mg/dL Est GFR (CKD-EPI)AfAm 78 (>60 ml/min/1.73 sqM) Est GFR (CKD-EPI)NonAf 68 (>60 ml/min/1.73 sqM) Glucose 96 (74-99) mg/dL Plasma Lactic Acid [place] (0.7-2.0) mmol/L Calcium 10.5 H (8.4-10.2) mg/dL Total Bilirubin 0.9 (0.2-1.3) mg/dL AST 29 (17-59) U/L ALT 15 (4-49) U/L Alkaline Phosphatase 108 (38-126) U/L Total Protein 8.4 H (6.3-8.2) g/dL Albumin 5.0 (3.5-5.0) g/dL Lipase 100 (23-300) U/L Urine Color Yellow Urine Appearance Clear (Clear) Urine pH 6.0 (5.0-8.0) Ur Specific [place] 1.040 H (1.001-1.035) Urine Protein 1+ H (Negative) Urine Glucose (UA) Negative (Negative) Urine Ketones 2+ H (Negative) Urine Blood Trace H (Negative) Urine Nitrite Negative (Negative) Urine Bilirubin Negative (Negative) Urine Urobilinogen <2.0 (<2.0) mg/dL Ur Leukocyte Esterase Negative (Negative) Urine RBC 1 (0-5) /hpf Urine WBC 4 (0-5) /hpf Ur Squamous Epith Cells <1 (0-4) /hpf Urine Mucus Rare H (None) /hpf 06/02/21 Range/Units 20:40 WBC (3.8-10.6) k/uL RBC (4.30-5.90) m/uL Hgb (13.0-17.5) gm/dL Hct (39.0-53.0) % MCV (80.0-100.0) fL MCH (25.0-35.0) pg MCHC (31.0-37.0) g/dL RDW (11.5-15.5) % Plt Count (150-450) k/uL MPV Neutrophils % % Lymphocytes % % Monocytes % % Eosinophils % % Basophils % % Neutrophils # (1.3-7.7) k/uL Lymphocytes # (1.0-4.8) k/uL Monocytes # (0-1.0) k/uL Eosinophils # (0-0.7) k/uL Basophils # (0-0.2) k/uL Sodium (137-145) mmol/L Potassium (3.5-5.1) mmol/L Chloride (98-107) mmol/L Carbon Dioxide (22-30) mmol/L Anion Gap mmol/L BUN (9-20) mg/dL Creatinine (0.66-1.25) mg/dL Est GFR (CKD-EPI)AfAm (>60 ml/min/1.73 sqM) Est GFR (CKD-EPI)NonAf (>60 ml/min/1.73 sqM) Glucose (74-99) mg/dL Plasma Lactic Acid [place] 1.2 (0.7-2.0) mmol/L Calcium (8.4-10.2) mg/dL Total Bilirubin (0.2-1.3) mg/dL AST (17-59) U/L ALT (4-49) U/L Alkaline Phosphatase (38-126) U/L Total Protein (6.3-8.2) g/dL Albumin (3.5-5.0) g/dL Lipase (23-300) U/L Urine Color Urine Appearance (Clear) Urine pH (5.0-8.0) Ur Specific [place] (1.001-1.035) Urine Protein (Negative) Urine Glucose (UA) (Negative) Urine Ketones (Negative) Urine Blood (Negative) Urine Nitrite (Negative) Urine Bilirubin (Negative) Urine Urobilinogen (<2.0) mg/dL Ur Leukocyte Esterase (Negative) Urine RBC (0-5) /hpf Urine WBC (0-5) /hpf Ur Squamous Epith Cells (0-4) /hpf Urine Mucus (None) /hpf - Radiology Data Radiology results: report reviewed, image reviewed CT abdomen and pelvis is obtained. Report was reviewed in its entirety. Impr ession by Dr. Codey Catherine shows no acute process. Disposition Clinical Impression: Right hip pain Disposition: HOME SELF-CARE Condition: Good Instructions (If sedation given, give patient instructions): Hip Pain (ED) Additional Instructions: Follow-up with orthopedics tomorrow as you have planned. Take medication as we discussed. Return for any new, worsening, or concerning symptoms. Is patient prescribed a controlled substance at d/c from ED?: No Referrals: Luciano Shukla MD [Primary Care Provider] - 1-2 days Time of Disposition: 22:15
[2021-06-02 20:44] LABS: Basophils % (A) 1 %; Eosinophils # (A) 0.1 k/uL (0-0.7); Eosinophils % (A) 1 %; HCT 49.9 % (39.0-53.0); HGB 16.3 gm/dL (13.0-17.5); Lymphocytes % (A) 15 %; MCHC 32.7 g/dL (31.0-37.0); MCV 94.7 fL (80.0-100.0); Mean Platelet Volume 6.7; Monocytes # (A) 0.2 k/uL (0-1.0); Monocytes % (A) 3 %; Neutrophils # (A) 5.7 k/uL (1.3-7.7); Neutrophils % (A) 80 %; Platelet Count 164 k/uL (150-450); RBC 5.27 m/uL (4.30-5.90); WBC 7.2 k/uL (3.8-10.6)
[2021-06-02 20:56] LABS: Calcium 10.5 mg/dL (8.4-10.2); Potassium 4.7 mmol/L (3.5-5.1); Total Bilirubin 0.9 mg/dL (0.2-1.3); Total Protein 8.4 g/dL (6.3-8.2)
--- NOTE | 2021-06-02 21:43 | CT ---
EXAMINATION TYPE: CT abdomen pelvis w con DATE OF EXAM: 06/02/2021 COMPARISON: 1221 HISTORY: Right sided hip and testicular pain. CT DLP: 1274.1 mGycm Automated exposure control for dose reduction was used. TECHNIQUE: Helical acquisition of images was performed from the lung bases through the pelvis. CONTRAST: 0Performed without Oral Contrast and with IV Contrast, patient injected with 80 mL of Isovu e 300. FINDINGS: LUNG BASES: No significant abnormality is appreciated. LIVER/GB: No significant abnormality is appreciated. PANCREAS: No significant abnormality is seen. SPLEEN: No significant abnormality is seen. ADRENALS: No significant abnormality is seen. KIDNEYS: No significant abnormality is seen. FREE AIR: No free air is visualized. RETROPERITONEAL ADENOPATHY: None visualized REPRODUCTIVE ORGANS: No significant abnormality is seen URINARY BLADDER: No significant abnormality is seen. PELVIC ADENOPATHY: None visualized. OSSEOUS STRUCTURES: No significant abnormality is seen. BOWEL: No significant abnormality is seen. OTHER: Previously seen large subcutaneous complex fluid collection appears similar morphologically to the 12/08/2020 CT, but smaller in its volume. IMPRESSION: NO ACUTE PROCESS; NO CT CORRELATE FOR THE PATIENT'S SYMPTOMS.
[2021-06-02] MEDS ORDERED: oxyCODONE-APAP 7.5-325MG 1 EACH TAB PO STA (22:14)
[2021-06-02] MEDS ORDERED: methylPREDNISolone SOD SUCCI 125 MG/2 ML VIAL IV STA (22:14)
[2021-06-02 22:39] LABS: Appearance,Urine Clear (Clear); Bilirubin,Urine Negative (Negative); Blood,Urine Trace (Negative); Color,Urine Yellow; Glucose,Urine (UA) Negative (Negative); Ketones,Urine 2+ (Negative); Leukocyte Esterase,Urine Negative (Negative); Mucus,Urine Rare /hpf; Nitrite,Urine Negative (Negative); Protein,Urine 1+ (Negative); RBC,Urine 1 /hpf (0-5); Squamous Epithelial Cell,Urine <1 /hpf (0-4); Urobilinogen,Urine <2.0 mg/dL (<2.0); WBC,Urine 4 /hpf (0-5)
== END 2021-06-02 22:54 | disposition home or self-care (01) ==
LOC: EC 17:30
DX: M25.551 Pain in right hip (principal); E11.9 Type 2 diabetes mellitus without complications; I10 Essential (primary) hypertension; I25.10 Atherosclerotic heart disease of native coronary artery without angina pectoris; E78.5 Hyperlipidemia, unspecified; F31.9 Bipolar disorder, unspecified; F25.9 Schizoaffective disorder, unspecified; K21.9 Gastro-esophageal reflux disease without esophagitis; Z79.82 Long term (current) use of aspirin; Z79.899 Other long term (current) drug therapy; Z87.891 Personal history of nicotine dependence; Z90.49 Acquired absence of other specified parts of digestive tract; Z95.1 Presence of aortocoronary bypass graft; Z85.528 Personal history of other malignant neoplasm of kidney; Z80.3 Family history of malignant neoplasm of breast
CPT/HCPCS: 36415; 80053; 83605; 83690; 85025; 81001; 74177; 99284; 96374; 96375 ×2; 96376; 96361; J2930; J2405; J1170; Q9967

== ENCOUNTER → 2021-06-06 | Outpatient (CLI) | payer MEDICARE, OTHER | END | disposition home or self-care (01) | LOC: LABWHC1 06:57 | PROVIDERS: ATTEND Physician Assistant | DX: M16.11 Unilateral primary osteoarthritis, right hip (principal); M54.50 Low back pain, unspecified | CPT/HCPCS: 36415; 85652; 86140 ==

== ENCOUNTER → 2021-06-20 | Outpatient (CLI) | payer MEDICARE, OTHER ==
[2021-06-20 13:55] VITALS: BP 152/96; PULSE 63; RESP 18; TEMP 98.2; BMI 29.3
--- NOTE | 2021-07-18 17:05 | P.HPBAR ---
Bariatric H&P - History & Physicial H&P Date: 06/20/21 History & Physicial: Visit/CC: follow up Patient initial contact: Initial weight: 99.025 kg Initial weight in pounds: 218.31 Height: 5 ft 10 in Initial BMI: 31.3 Last weight: Current weight: 92.714 kg Current weight in pounds: 204.40 Current BMI: 29.3 [place] body weight (based on NIH guidelines): 75.296 kg Excess body weight loss: 26.5% The patient is a 60 year-old M who presents for Bariatric Assessment. Patient presents today for bariatric follow. He had a recent drainage of his abdominal wall seroma. This will appears to be completely resolved. Past Medical History Past Medical History: Blood Disorder, Coronary Artery Disease (CAD), Cancer, Diabetes Mellitus, GERD/Reflux, Hyperlipidemia, Hypertension Additional Past Medical History / Comment(s): hx. KIDNEY CANCER, iron deficiency anemia, states no longer considered diabetic since weight loss-no further meds & hgba1c is normal per pt, states recent stress normal, seroma post panniculectomy History of Any Multi-Drug Resistant Organisms: None Reported Past Surgical History: Appendectomy, Bariatric Surgery, Coronary Bypass/CABG, Joint Replacement, Orthopedic Surgery Additional Past Surgical History / Comment(s): quad. bypass 1998, lt kidney removed, BILAT TKA,guerda shoulders scoped,LAP-BAND,Gastric sleeve conversion,bowel adhesions removed, COLONOSCOPY, EGD; spinal fusion June 2018, Panniculectomy aug 2020. Past Anesthesia/Blood Transfusion Reactions: No Reported Reaction Past Psychological History: Bipolar, Depression, Schizoaffective Disorder Additional Psychological History / Comment(s): antisocial disorder Smoking Status: Former smoker Past Alcohol Use History: None Reported Additional Past Alcohol Use History / Comment(s): smoked for 27 years, quit in 2001 Past Drug Use History: None Reported - Past Family History Mother Family Medical History: Cancer Additional Family Medical History / Comment(s): at age 66 from Breast Cancer Father Additional Family Medical History / Comment(s): at age 76 from emphysema Surgical - Exam Vital Signs Temp Pulse Resp BP 98.2 F 63 18 152/96 06/20/21 13:43 06/20/21 13:43 06/20/21 13:43 06/20/21 13:43 - General well developed, well nourished, no distress - Eyes PERRL - ENT normal pinna - Neck no masses - Respiratory normal expansion - Cardiovascular Rhythm: regular - Abdomen Abdomen: soft, non tender Bariatric Assessment & Plan Plan: Resolved abdominal wall seroma. Patient will follow-up in 4 weeks. Bariatric Checklist Checklist: Plan: Checklist: EGD: 1. Hiatal hernia: 2. H. Pylori: HgbA1c: Vitamin D: Smoking: Former smoker Primary care physician referral: FADY Psychiatry clearance: Cardiology clearance: Sleep study: Diet journal: VTE risk score: VTE risk level: Rehab needs at discharge:
== END ==
LOC: BARWHC3 13:03
PROVIDERS: ATTEND Surgery
DX: Z09 Encounter for follow-up examination after completed treatment for conditions other than malignant neoplasm (principal); I25.10 Atherosclerotic heart disease of native coronary artery without angina pectoris; E11.9 Type 2 diabetes mellitus without complications; K21.9 Gastro-esophageal reflux disease without esophagitis; E78.5 Hyperlipidemia, unspecified; I10 Essential (primary) hypertension; F31.9 Bipolar disorder, unspecified; F20.9 Schizophrenia, unspecified; Z87.891 Personal history of nicotine dependence; Z79.82 Long term (current) use of aspirin; Z79.899 Other long term (current) drug therapy
CPT/HCPCS: 99211

== ENCOUNTER 2021-07-04 12:35 | Day surgery (SDC) | payer MEDICARE, OTHER ==
[2021-07-04 13:02] VITALS: TEMP 97.7
[2021-07-04 14:02] VITALS: PULSE 56; RESP 14
[2021-07-04 14:17] VITALS: BP 132/75
--- NOTE | 2021-07-04 14:27 | US ---
EXAMINATION TYPE: US asp abscess/hemat/cyst DATE OF EXAM: 07/04/2021 HISTORY: Seroma status post panniculectomy FINDINGS: Maximal barrier technique was utilized. The skin overlying a suitable path to the fluid wa s localized with ultrasound and the overlying skin prepped and draped. Lidocaine was used for local anesthesia. A skin dari made with a scalpel. Access was gained under direct ultrasound guidance to the fluid with a 5 Y[place] catheter over guide needle, catheter advanced, needle removed. Ultrasound w as utilized using sterile technique. 230 cc dark fluid returned. Catheter was removed following th e procedure. Hemostasis achieved. No immediate complication and the patient remained in stable condi tion. IMPRESSION: STATUS POST ULTRASOUND GUIDED SEROMA DRAINAGE, THIS PROCEDURE WAS PERFORMED BY THE UNDERS IGNED.
== END 2021-07-04 14:18 | disposition home or self-care (01) ==
LOC: RADPROMAIN 12:35
PROVIDERS: ATTEND Surgery
DX: L76.34 Postprocedural seroma of skin and subcutaneous tissue following other procedure (principal)
CPT/HCPCS: 10160

== ENCOUNTER 2021-09-21 12:24 | Day surgery (SDC) | payer MEDICARE, OTHER ==
[2021-09-21 13:04] VITALS: RESP 16; TEMP 98.1
[2021-09-21 14:07] VITALS: BP 119/73; PULSE 56
--- NOTE | 2021-09-21 14:25 | US ---
ULTRASOUND GUIDED SUBCUTANEOUS SEROMA DRAINAGE: CLINICAL HISTORY: Postoperative subcutaneous seroma requested for fine-needle aspiration FINDINGS: The procedure was explained to the patient. The risks, complications, benefits and alternatives were discussed and any questions were answered. Informed consent was obtained. Patient was placed supin e on the ultrasound table and prepped and draped in the usual sterile fashion. Utilizing a 18-gauge needle approximately 300 cc of dark serous fluid was aspirated. Repeat ultrasound demonstrated no res idual fluid collection. Patient was stable throughout the procedure. Pathology is pending. All elements of maximal barrier and sterile technique were utilized. IMPRESSION: 1. Successful ultrasound guided FNA anterior subcutaneous seroma drainage.
== END 2021-09-21 14:00 | disposition home or self-care (01) ==
LOC: RADPROMAIN 12:24
PROVIDERS: ATTEND Surgery
DX: L76.34 Postprocedural seroma of skin and subcutaneous tissue following other procedure (principal)
CPT/HCPCS: 10160

== ENCOUNTER 2021-12-21 07:36 | Day surgery (SDC) | payer MEDICARE, OTHER ==
[2021-12-21 08:24] VITALS: RESP 18; TEMP 98.3
[2021-12-21 09:25] VITALS: BP 133/76; PULSE 68
--- NOTE | 2021-12-21 09:56 | US ---
EXAMINATION TYPE: US asp abscess/hemat/cyst DATE OF EXAM: 12/21/2021 HISTORY: Seroma postop FINDINGS: Maximal barrier technique was utilized. The skin overlying a suitable path to the fluid wa s localized with ultrasound and the overlying skin prepped and draped. Lidocaine was used for local anesthesia. A skin dari made with a scalpel. Access was gained under direct ultrasound guidance to the fluid with a 5 Japanese catheter over needle, catheter advanced and needle removed. Ultrasound was utilized using sterile technique. Approximately 250 cc dark fluid was aspirated and discarded. There is essentially resolution of the previously identified fluid collection, minimal crescentic hypoecho ic area persists. Catheter was removed. Hemostasis achieved. No immediate complication and the car[place] ent remained in stable condition. IMPRESSION: STATUS POST ULTRASOUND GUIDED SEROMA DRAINAGE, THIS PROCEDURE WAS PERFORMED BY THE UNDERS IGNED.
== END 2021-12-21 09:27 | disposition home or self-care (01) ==
LOC: RADPROMAIN 07:36
PROVIDERS: ATTEND Surgery
DX: L76.34 Postprocedural seroma of skin and subcutaneous tissue following other procedure (principal)
CPT/HCPCS: 10160; 49406

== ENCOUNTER → 2022-04-10 | Outpatient (CLI) | payer MEDICARE, OTHER ==
[2022-04-10 12:57] VITALS: BP 162/100; PULSE 61; TEMP 98.2; BMI 33.0
--- NOTE | 2022-04-10 14:58 | P.HPBAR ---
Bariatric H&P - History & Physicial H&P Date: 04/10/22 History & Physicial: Visit/CC: recurrent seroma Patient initial contact: Initial weight: 99.025 kg Initial weight in pounds: 218.31 Height: 5 ft 10 in Initial BMI: 31.3 Last weight: Current weight: 104.326 kg Current weight in pounds: 230.00 Current BMI: 33.0 [place] body weight (based on NIH guidelines): 75.296 kg Excess body weight loss: The patient is a 61 year-old M who presents for Bariatric Assessment. Patient has some complaints of abdominal wall swelling. His concern he may have a seroma. The patient had appendectomy several years ago. Past Medical History Past Medical History: Blood Disorder, Coronary Artery Disease (CAD), Cancer, Diabetes Mellitus, GERD/Reflux, Hyperlipidemia, Hypertension Additional Past Medical History / Comment(s): hx. KIDNEY CANCER, iron deficiency anemia, states no longer considered diabetic since weight loss-no further meds & hgba1c is normal per pt, states recent stress normal, seroma post panniculectomy, right hip/groin and waistline pain, rt gip pain injection History of Any Multi-Drug Resistant Organisms: None Reported Past Surgical History: Appendectomy, Bariatric Surgery, Coronary Bypass/CABG, Joint Replacement, Orthopedic Surgery Additional Past Surgical History / Comment(s): quad. bypass 1998, lt kidney removed, BILAT TKA,guerda shoulders scoped,LAP-BAND,Gastric sleeve conversion,bowel adhesions removed, COLONOSCOPY, EGD; spinal fusion June 2018, Panniculectomy aug 2020, seroma aspiration times 2 Past Anesthesia/Blood Transfusion Reactions: No Reported Reaction Past Psychological History: Bipolar, Depression, Schizoaffective Disorder Additional Psychological History / Comment(s): antisocial disorder Smoking Status: Former smoker Past Alcohol Use History: None Reported Additional Past Alcohol Use History / Comment(s): smoked for 27 years, quit in 2001 Past Drug Use History: None Reported - Past Family History Mother Family Medical History: Cancer Additional Family Medical History / Comment(s): at age 66 from Breast Cancer Father Additional Family Medical History / Comment(s): at age 76 from emphysema Surgical - Exam Vital Signs Temp Pulse BP 98.2 F 61 162/100 04/10/22 12:51 04/10/22 12:51 04/10/22 12:51 - General well developed, well nourished, no distress - Eyes PERRL - ENT normal pinna - Neck no masses - Respiratory normal expansion - Cardiovascular Rhythm: regular - Abdomen I'll amount of possible swelling on the anterior abdominal wall. No definite seroma spell. The patient is concerned about this area. Abdomen: soft, non tender Bariatric Assessment & Plan Plan: Hospital abdominal seroma. Patient will be scheduled for ultrasound the abdomen tonight for possible seroma. Bariatric Checklist Checklist: Plan: Checklist: EGD: 1. Hiatal hernia: 2. H. Pylori: HgbA1c: Vitamin D: Smoking: Former smoker Primary care physician referral: Dr. Mota Psychiatry clearance: Cardiology clearance: Sleep study: Diet journal: VTE risk score: VTE risk level: Rehab needs at discharge:
== END ==
LOC: BARWHC3 12:36
PROVIDERS: ATTEND Surgery
DX: K91.872 Postprocedural seroma of a digestive system organ or structure following a digestive system procedure (principal); I25.10 Atherosclerotic heart disease of native coronary artery without angina pectoris; E11.9 Type 2 diabetes mellitus without complications; E78.5 Hyperlipidemia, unspecified; I10 Essential (primary) hypertension; Z87.891 Personal history of nicotine dependence
CPT/HCPCS: 99211

== ENCOUNTER 2022-04-13 08:27 | Day surgery (SDC) | payer MEDICARE, OTHER ==
[2022-04-13 08:52] VITALS: RESP 16; TEMP 97.6
[2022-04-13 10:00] VITALS: BP 124/64; PULSE 60
--- NOTE | 2022-04-13 10:39 | US ---
Ultrasound-guided anterior abdominal wall subcutaneous seroma drainage DATE OF EXAM: 04/13/2022 CLINICAL HISTORY: Postoperative seroma FINDINGS: Maximal barrier technique was utilized. The skin overlying a suitable path to the fluid was localized with ultrasound and the overlying skin prepped and draped. Lidocaine was used for local an esthesia. A skin dari made with a scalpel. Access was gained under direct ultrasound guidance to the fluid with a 5 [place] catheter over needle, catheter advanced and needle removed. Ultrasound was util ized using sterile technique. Approximately 250 cc dark fluid was aspirated and discarded. There is e ssentially resolution of the previously identified fluid collection, minimal crescentic hypoechoic ar ea persists. Catheter was removed. Hemostasis achieved. No immediate complication and the patient rem ained in stable condition. IMPRESSION: Successful seroma drainage under ultrasound guidance.
== END 2022-04-13 09:58 | disposition home or self-care (01) ==
LOC: RADPROMAIN 08:27
PROVIDERS: ATTEND Surgery
DX: L76.34 Postprocedural seroma of skin and subcutaneous tissue following other procedure (principal)
CPT/HCPCS: 10030; 76942

== ENCOUNTER → 2022-11-27 | Outpatient (CLI) | payer MEDICARE, OTHER ==
[2022-11-27 13:06] VITALS: BP 170/75; PULSE 65; TEMP 97.5; BMI 32.0
--- NOTE | 2023-01-02 10:17 | P.HPBAR ---
Bariatric H&P - History & Physicial H&P Date: 11/28/22 History & Physicial: Visit/CC: seroma Patient initial contact: Initial weight: 99.025 kg Initial weight in pounds: 218.31 Height: 5 ft 10 in Initial BMI: 31.3 Last weight: Current weight: 101.151 kg Current weight in pounds: 223.00 Current BMI: 32.0 [place] body weight (based on NIH guidelines): 75.296 kg Excess body weight loss: The patient is a 62 year-old M who presents for Bariatric Assessment. Patient presents today for [facility] follow-up. He's had some minimal GERD. Patient also feels that he may be developing a seroma at his previous panniculectomy incision site. Patient feels swelling in the area. Past Medical History Past Medical History: Blood Disorder, Coronary Artery Disease (CAD), Cancer, Diabetes Mellitus, GERD/Reflux, Hyperlipidemia, Hypertension Additional Past Medical History / Comment(s): hx. KIDNEY CANCER, iron deficiency anemia, states no longer considered diabetic since weight loss-no further meds & hgba1c is normal per pt, states recent stress normal, seroma post panniculectomy, right hip/groin and waistline pain, rt gip pain injection History of Any Multi-Drug Resistant Organisms: None Reported Past Surgical History: Appendectomy, Bariatric Surgery, Coronary Bypass/CABG, Joint Replacement, Orthopedic Surgery Additional Past Surgical History / Comment(s): quad. bypass 1998, lt kidney removed, BILAT TKA,guerda shoulders scoped,LAP-BAND,Gastric sleeve conversion,bowel adhesions removed, COLONOSCOPY, EGD; spinal fusion June 2018, Panniculectomy aug 2020, seroma aspiration times 2 Past Anesthesia/Blood Transfusion Reactions: No Reported Reaction Past Psychological History: Bipolar, Depression, Schizoaffective Disorder Additional Psychological History / Comment(s): antisocial disorder Smoking Status: Former smoker Past Alcohol Use History: None Reported Additional Past Alcohol Use History / Comment(s): smoked for 27 years, quit in 2001 Past Drug Use History: None Reported - Past Family History Mother Family Medical History: Cancer Additional Family Medical History / Comment(s): at age 66 from Breast Cancer Father Additional Family Medical History / Comment(s): at age 76 from emphysema Surgical - Exam Vital Signs Temp Pulse BP 97.5 F L 65 170/75 11/27/22 13:00 11/27/22 13:00 11/27/22 13:00 - General well developed, well nourished, no distress - Eyes PERRL - ENT normal pinna - Neck no masses - Respiratory normal expansion - Cardiovascular Rhythm: regular - Abdomen Swelling in the lower abdominal area suggestive of a seroma. Abdomen: soft, non tender Bariatric Assessment & Plan Plan: Patient's GERD is minimal and will be observed. If. Patient was scheduled for ultrasound of his abdominal wall to evaluate for possible seroma. Bariatric Checklist Checklist: Plan: Checklist: EGD: 1. Hiatal hernia: 2. H. Pylori: HgbA1c: Vitamin D: Smoking: Former smoker Primary care physician referral: Dr. Mota Psychiatry clearance: Cardiology clearance: Sleep study: Diet journal: VTE risk score: VTE risk level: Rehab needs at discharge:
== END ==
LOC: BARWHC3 12:42
PROVIDERS: ATTEND Surgery
DX: E66.01 Morbid (severe) obesity due to excess calories (principal); I25.10 Atherosclerotic heart disease of native coronary artery without angina pectoris; E11.9 Type 2 diabetes mellitus without complications; K21.9 Gastro-esophageal reflux disease without esophagitis; E78.5 Hyperlipidemia, unspecified; I10 Essential (primary) hypertension; Z87.891 Personal history of nicotine dependence; Z68.32 Body mass index [BMI] 32.0-32.9, adult
CPT/HCPCS: 99211

== ENCOUNTER → 2022-12-20 | Outpatient (CLI) | payer MEDICARE, OTHER ==
--- NOTE | 2022-12-20 09:36 | US ---
EXAMINATION TYPE: US abdomen limited DATE OF EXAM: 12/20/2022 COMPARISON: EXAMINATION TYPE: US abdomen limited DATE OF EXAM: 12/20/2022 COMPARISON: EXAMINATION TYPE: US abdomen limited DATE OF EXAM: 12/20/2022 COMPARISON: 04/13/22 CLINICAL INDICATION: Male, 62 years old with history of L76.34 POSTPROC SEROMA OF SKIN, SUBCU FOLLOWI NG OT; rescan seroma TECHNIQUE: Multiple sonographic images of the area of concern are obtained at mid abdomen slightly le ft of midline. FINDINGS: Shoe Repairer Helper was unable to obtain accurate measurements due to large size of seroma and limited field of view of transducer. Complex multiloculated cystic area measures at least 10.1 x 5.0 x 9.9 cm and i s 2.1 cm beneath the skin. IMPRESSION: Complex fluid collection in the anterior abdominal wall as seen dating back to at least 12/08/2020 wit h septations. Findings could represent hematoma or seroma given lack of adjacent inflammation.
== END | disposition home or self-care (01) ==
LOC: RADUSWWP 06:55
PROVIDERS: ATTEND Surgery
DX: L76.34 Postprocedural seroma of skin and subcutaneous tissue following other procedure (principal)
CPT/HCPCS: 76705

== ENCOUNTER 2023-01-10 08:24 | Day surgery (SDC) | payer MEDICARE, OTHER ==
[2023-01-10 09:07] VITALS: RESP 16; TEMP 98.1
[2023-01-10 10:04] VITALS: BP 121/63; PULSE 58
--- NOTE | 2023-01-10 11:45 | US ---
ULTRASOUND GUIDED FNA anterior abdominal wall SEROMA BIOPSY: CLINICAL HISTORY: Postoperative seroma FINDINGS: The procedure was explained to the patient. The risks, complications, benefits and alternatives were discussed and any questions were answered. Informed consent was obtained. Patient was placed supin e on the ultrasound table and prepped and draped in the usual sterile fashion. Utilizing a 18 gauge needle, a pass was made into the complex collection which appears to be organizing. There is very lit tle free fluid remaining. 1 cc of aspirate was obtained. Patient was stable throughout the procedure. Procedure was then deferred. All elements of maximal barrier technique were utilized. IMPRESSION: 1. The seroma now appears to be predominantly solid with very little remaining free fluid. Only a sin gle cc of aspirate was obtained. Do not think in the future aspiration would yield significant result ..
== END 2023-01-10 10:08 | disposition home or self-care (01) ==
LOC: RADPROMAIN 08:24
PROVIDERS: ATTEND Surgery
DX: L76.34 Postprocedural seroma of skin and subcutaneous tissue following other procedure (principal)
CPT/HCPCS: 10030; 76942

== ENCOUNTER → 2025-01-08 | Outpatient (CLI) | payer MEDICARE, OTHER ==
--- NOTE | 2025-01-08 10:54 | US ---
EXAMINATION TYPE: US kidneys/renal and bladder DATE OF EXAM: 01/08/2025 COMPARISON: CT 2020, US 2018 CLINICAL INDICATION: Male, 64 years old with history of N18.31 CHRONIC KIDNEY DISEASE, STAGE 3B; Hx l eft kidney removed due to cancer. CKD stage 3B per order TECHNIQUE: Grayscale imaging of the bilateral kidneys and urinary bladder: FINDINGS: EXAM MEASUREMENTS: Right Kidney: 11.1 x 5.7 x 5.8 cm Left Kidney: Surgically absent Right Kidney: Anechoic area seen medially- question minimal hydro versus other anechoic area?: 2.1 x 2.5 x 3.2 cm. *Hyperechoic area seen lower pole: 1.2 x 1.1 x 0.6 cm. Left Kidney: Surgically absent Bladder: Appears anechoic. Bilateral Jets seen: Right jet seen, hx left nephrectomy IMPRESSION: 1. Prominence to the right renal collecting system similar to prior CT given differences in techniqu e. 2. Right renal cortical calcification versus fatty infiltration. 3. Surgically absent left kidney. [facility], , 01/08/2025 10:51 AM
== END | disposition home or self-care (01) ==
LOC: RADUSWWP 10:12
PROVIDERS: ATTEND Internal Medicine
DX: N18.31 Chronic kidney disease, stage 3a (principal); Z90.5 Acquired absence of kidney; Z85.528 Personal history of other malignant neoplasm of kidney
CPT/HCPCS: 76770

== ENCOUNTER → 2025-02-03 | Outpatient (CLI) | payer MEDICARE, OTHER ==
--- NOTE | 2025-02-03 17:13 | CT ---
EXAMINATION TYPE: CT abdomen pelvis wo con CT DLP: 478.80 mGycm, Automated exposure control for dose reduction was used. DATE OF EXAM: 02/03/2025 4:02 PM COMPARISON: CT abdomen pelvis 06/02/2021, renal ultrasound 01/08/2025 CLINICAL INDICATION:Male, 64 years old with history of N13.30 RIGHT HYDRONEPHROSIS C64.2 LEFT RENAL C ANCEN13.30 RIG; hydronephrosis TECHNIQUE: Standard CT of the abdomen and pelvis without IV or oral contrast. Lack of IV or oral co ntrast limits evaluation of solid and hollow organ viscera. Coronal and sagittal reformats were perfo rmed. FINDINGS: LOWER CHEST: Elevation of the left hemidiaphragm. Linear atelectasis within the left lower lobe. Angelic nary artery calcifications. ABDOMEN LIVER: Unremarkable noncontrast appearance. GALLBLADDER AND BILE DUCTS: Unremarkable noncontrast appearance. PANCREAS: Unremarkable noncontrast appearance. SPLEEN: Unremarkable noncontrast appearance. ADRENAL GLANDS: Unremarkable noncontrast appearance.. KIDNEYS AND URETERS: No evidence of hydronephrosis. Approximately 3 nonobstructing right renal calcul i measuring up to 3 mm. No hydroureter or ureteral calculus identified. Unchanged irregular small den sity in the left renal bed with calcification. PELVIS BLADDER: Unremarkable REPRODUCTIVE: Unremarkable. ABDOMEN & PELVIS STOMACH AND BOWEL: Postsurgical changes of the stomach from suspected gastric sleeve.Moderate colonic stool burden. No focal bowel wall thickening or surrounding inflammatory changes. No evidence of bow el obstruction. PERITONEUM: No evidence of pneumoperitoneum or free fluid. VASCULATURE: Mild atherosclerotic calcifications are present throughout the abdominal aorta and its b ranches. No evidence of aortic aneurysm. MUSCULOSKELETAL: No acute osseous abnormalities. Postsurgical changes with bilateral pedicular screws and rods involving L5-S1 with disc fusion cage. Multilevel degenerative disc disease. LYMPH NODES: No gross evidence for lymphadenopathy. SOFT TISSUE/ABDOMINAL WALL: Broad-based inferior to the xiphoid process fat-containing hernia with de fect measuring 3.1 cm in diameter. Stable lower anterior abdominal wall organized fluid collection me asuring 4.5 x 10.2 x 12.8 cm along the anterior aspect of the musculature. Demonstrates simple fluid attenuation. No internal gas. No surrounding fat stranding. IMPRESSION: 1. No evidence for obstructive uropathy. 2. Nonobstructing few punctate right renal calculi. 3. Unchanged irregular small calcified density within the left renal bed which may represent a severe ly dysplastic kidney versus posttreatment changes from left nephrectomy. 4. Stable lower anterior abdomen wall fluid collection likely representing a postoperative seroma. [facility], , 02/03/2025 5:10 PM
== END | disposition home or self-care (01) ==
LOC: RADCTMAIN 15:42
PROVIDERS: ATTEND Urology
DX: C64.2 Malignant neoplasm of left kidney, except renal pelvis (principal); N13.30 Unspecified hydronephrosis; N20.0 Calculus of kidney; N28.89 Other specified disorders of kidney and ureter
CPT/HCPCS: 74176